=== PATIENT | male | born 1940 | race Caucasian/White ===

== ENCOUNTER 2018-03-26 23:26 | Inpatient (IN) | payer OTHER ==
[2018-03-27] MEDS ORDERED: ONDANSETRON 4 MG/2 ML VIAL ONE ×2 (00:03→10:27)
[2018-03-27] MEDS ORDERED: FENTANYL CITR 100 MCG/2 ML ONE ×2 (00:03→09:31)
[2018-03-27 00:46] LABS: ALT/SGPT 24 U/L (12-78); AST/SGOT 22 U/L (15-37); Alkaline Phosphatase 105 U/L (45-117); Amylase Level 54 U/L (25-115); BUN Blood Urea Nitrogen 15 mg/dL (7-18); Bicarbonate 32 mmol/L (21-32); Bilirubin Direct 0.1 mg/dL (0-0.2); Bilirubin Total 0.6 mg/dL (0.2-1.0); Glucose Level 104 mg/dL (74-106); Lipase 132 U/L (73-393); Potassium 3.4 mmol/L (3.5-5.1); Protein, Total 7.7 g/dL (6.4-8.2); Sodium Level 137 mmol/L (136-145)
[2018-03-27 01:07] LABS: Absolute Monocytes 0.6 K/uL (0.1-1.3); Absolute Neutrophil 5.5 K/uL (1.8-8.0); Eosinophils % 7.3 % (0-4.4); Hematocrit 42.9 % (39.6-49.0); MCH 28.9 pg (27.0-35.0); MCV 86.6 fL (80-100); MPV 9.9 fL (7.6-11.3); Monocytes % 7.6 % (3.3-12.3); RBC Red Blood Cell Count 4.95 M/uL (4.33-5.43)
[2018-03-27 01:52] LABS: Urine Bacteria <20 /HPF (NONE SEEN); Urine Culture Reflex Order NOT NEEDED; Urine RBC <5 /HPF (NONE SEEN)
[2018-03-27 01:53] LABS: Urine Blood NEGATIVE (NEG); Urine Glucose NEGATIVE (NEG); Urine Protein NEGATIVE (NEG); Urine pH 7.5 (5.0-7.0)
[2018-03-27] MEDS ORDERED: KETOROLAC 30 MG/ML INJ ONE (02:34)
[2018-03-27] MEDS ORDERED: POTASSIUM 25 MEQ EFFERV TAB ONE (02:34)
--- NOTE | 2018-03-27 05:00 | ER ---
Nurse's Notes [facility] Name: Sin Aguilera Age: 77 yrs Sex: Male : 1940 Arrival Date: 03/26/2018 Time: 23:26 Bed 20 Private MD: Teddy Bone B Diagnosis: Right incarcerated inguinal hernia. ;Small bowel obstruction Presentation: 03/26 23:30 Presenting complaint: EMS states: Patient has right groin pain that started today. ao Patient toke Tramadol 100 Mg and put a bag of ice and got no relieve of his pain. Patient had hydrocele surgery in his right testicle back in January 2018. Patient describes pain similar with the only difference that this time is in the groin area. Transition of care: patient was not received from another setting of care. Onset of symptoms was March 26, 2018 at 20:00. Risk Assessment: Do you want to hurt yourself or someone else? Patient reports no desire to harm self or others. Initial Sepsis Screen: Does the patient meet any 2 criteria? No. Patient's initial sepsis screen is negative. Does the patient have a suspected source of infection? No. Patient's initial sepsis screen is negative. Care prior to arrival: None. 23:30 Method Of Arrival: EMS: [facility] ao 23:30 Acuity: ANGIE 3 ao Historical: - Allergies: 23:41 Codeine; ao - Home Meds: 03/27 00:12 lisinopril 40 mg Oral tab 1 tab BID [Active]; tamsulosin 0.4 mg oral cp24 1 cap twice a ao day [Active]; metoprolol tartrate 25 mg Oral tab 1 tab once daily [Active]; Exforge 5-160 mg oral tab 1 tab twice a day [Active]; levothyroxine 25 mcg tab 1 tab twice a day [Active]; Myrbetriq 25 mg oral Tb24 1 tab once daily [Active]; cefadroxil 500 mg oral cap 1 cap once daily [Active]; tramadol 50 mg Oral tab 1 tab PRN 8 hr for Pain [Active]; aspirin 81 mg Oral chew 1 tab once daily [Active]; pravastatin 80 mg oral tab 1 tab once daily [Active]; Nexium 40 mg Oral cpDR 1 cap once daily [Active]; nitroglycerin 0.4 mg SL subl 1 tab every 5 minutes for Angina [Active]; celecoxib 200 mg Oral cap 1 cap 2 times per day [Active]; - PMHx: 03/26 23:41 Hyperlipidemia; Hypertension; Hypothyroidism; CHF; prostate enlarge; ao - PSHx: 23:41 stents; Kidney remove; ao - Immunization history:: Adult Immunizations up to date. - Social history:: Smoking status: Patient uses tobacco products, denies chronic smoking, but will smoke occasionally, Patient uses alcohol, but reports only rare drinking. Patient/guardian denies using street drugs, IV drugs. - Ebola Screening: : Patient negative for fever greater than or equal to 101.5 degrees Fahrenheit, and additional compatible Ebola Virus Disease symptoms Patient negative for fever greater than or equal to 101.5 degrees Fahrenheit, and additional compatible Ebola Virus Disease symptoms Patient denies exposure to infectious person Patient denies travel to an Ebola-affected area in the 21 days before illness onset. Screenin:37 Abuse screen: Denies threats or abuse. Nutritional screening: No deficits noted. jd3 Tuberculosis screening: No symptoms or risk factors identified. Fall Risk Ambulatory Aid- None/Bed Rest/Nurse Assist (0 pts). Gait- Weak (10 pts.). Mental Status- Oriented to own ability (0 pts). Total Davey Fall Scale indicates No Risk (0-24 pts). Assessment: 23:32 General: Appears uncomfortable, Behavior is cooperative. Pain: Complains of pain in jd3 groin Pain currently is 7 out of 10 on a pain scale. Quality of pain is described as pressure, sharp, tender, Pain began suddenly, Is intermittent. Neuro: Level of Consciousness is awake, alert, obeys commands, Oriented to person, place, time, situation. Cardiovascular: Heart tones S1 S2 present Capillary refill < 3 seconds Patient's skin is warm and dry. Respiratory: Airway is patent Respiratory effort is even, unlabored, Respiratory pattern is regular, symmetrical, Breath sounds are clear bilaterally. GI: Abdomen is round Bowel sounds present X 4 quads. Abd is soft and non tender X 4 quads. : Reports pain in right grown Denies burning with urination, inability to void, urinary frequency. EENT: No signs and/or symptoms were reported regarding the EENT system. Derm: Skin is intact, Skin is dry, Skin is normal, Skin temperature is warm. Musculoskeletal: Circulation, motion, and sensation intact. Range of motion: intact in all extremities. 03/27 00:43 Reassessment: Patient appears in no apparent distress at this time. Patient and/or jd3 family updated on plan of care and expected duration. Pain level reassessed. Patient is alert, oriented x 3, equal unlabored respirations, skin warm/dry/pink. waiting for ultrasound. 03:10 Reassessment: Patient appears in no apparent distress at this time. Patient and/or ao family updated on plan of care and expected duration. Pain level reassessed. Patient is alert, oriented x 3, equal unlabored respirations, skin warm/dry/pink. Received patient from MILLIE Taveras who left home. Patient was at CT. Last set of VS stable. Patient had minimum changes in conditions since he was triage. 04:46 Reassessment: Patient appears in no apparent distress at this time. Patient and/or ao family updated on plan of care and expected duration. Pain level reassessed. 05:58 Reassessment: Patient is alert, oriented x 3, equal unlabored respirations, skin bb warm/dry/pink. IV site intact, report called to Jenna Silver RN. Vital Signs: 03/26 23:34 BP 175 / 86; Pulse 86; Resp 20; Temp 97.5(O); Pulse Ox 94% on R/A; Weight 95.71 kg (R); ao Height 5 ft. 11 in. (180.34 cm); Pain 02/14; 03/27 00:42 BP 134 / 58; Pulse 62; Resp 18 S; Pulse Ox 97% on R/A; jd3 01:15 BP 147 / 78; Pulse 57; Resp 19; Pulse Ox 90% on R/A; jd3 01:30 Pulse Ox 98% on 2 lpm NC; jd3 02:13 BP 169 / 74; Pulse 60; Resp 19 S; Pulse Ox 98% on 2 lpm NC; jd3 03:10 BP 139 / 64; Pulse 61; Resp 16; Pulse Ox 97% on NC; ao 04:46 BP 144 / 66; Pulse 72; Resp 16; Pulse Ox 97% ; ao 05:40 BP 136 / 64; Pulse 63; Resp 18; Pulse Ox 97% on R/A; bb 03/26 23:34 Body Mass Index 29.43 (95.71 kg, 180.34 cm) ao 01:15 pt placed on nasal canula jd3 ED Course: 03/26 23:26 Patient arrived in ED. ds1 23:27 Teddy Bone MD is Private Physician. ds1 23:27 Dk Guillen PA is PHCP. cp 23:27 Ricardo Zuniga MD is Attending Physician. cp 23:27 Rene Adams, MILLIE is Primary Nurse. jd3 23:34 Triage completed. ao 23:35 Arm band placed on right wrist. Patient placed in an exam room, in a wheelchair, on ao pulse oximetry. 23:41 Patient has correct armband on for positive identification. Pulse ox on. NIBP on. ao 03/27 00:10 Initial lab(s) drawn, by me, sent to lab. Urine collected: clean catch specimen, clear. bb Inserted saline lock: 20 gauge in right forearm, using aseptic technique. Blood collected. 00:54 Lights dimmed. Warm blanket given. wet bedding changed. jd3 01:19 Patient taken to ultrasound. bertin 02:04 US Scrotum Testicles In Process Unspecified. EDMS 03:11 CT Abd/Pelvis - W/Contrast: no oral contrast In Process Unspecified. EDMS 03:45 called and left message for Dr. Presley to please call Dr Clark for patient eb consulation. 04:44 repeat call and left message made to Dr. Presley for for patient consultation.eb 04:[address] Presley with Dr. Zuniga. eb 04:51 X-ray completed. Portable x-ray completed in exam room. Patient tolerated procedure kw well. 04:52 Chest Single View XRAY In Process Unspecified. EDMS 04:59 Denilson Presley MD is Hospitalizing Provider. ps1 05:59 No provider procedures requiring assistance completed. Patient admitted, IV remains in bb place. Administered Medications: 00:15 Drug: Zofran 4 mg Route: IVP; Site: right forearm; bb 02:41 Follow up: Response: No adverse reaction jd3 00:15 Drug: fentaNYL (PF) 25 mcg Route: IVP; Site: right forearm; bb 02:42 Follow up: Response: No adverse reaction jd3 02:38 Drug: Potassium Effervescent Tablet 25 mEq Route: PO; jd3 02:39 Drug: TORadol 30 mg Route: IVP; Site: right antecubital; jd3 Outcome: 04:59 Decision to Hospitalize by Provider. ps1 05:00 Instructed on the need for admit. bb 05:59 Admitted to Tele accompanied by tech, family with patient, via stretcher, room 417, bb with chart, Report called to Jenna Silver RN 05:59 Condition: stable 06:00 Patient left the ED. bb Signatures: Dispatcher [employer] EDIN Analy aBsilio ds1 Ese Reveles, RN RN bb Fela Brothers Corey, PA PA cp Ortiz, Alex, RN RN Moris Mckeon jd, Jonathon, RN RN jRicardo Mills MD MD ps1 Aby Galo Corrections: (The following items were deleted from the chart) 04:46 03:45 called and left message for Dr. Yates to please call Dr Clark for patient eb consulation. eb 04:47 04:44 repeat call made to Dr. Presley for for patient consulation. eb eb
--- NOTE | 2018-03-27 05:00 | EDPHYS ---
Physician Documentation [facility] Name: Sin Aguilera Age: 77 yrs Sex: Male : 1940 Arrival Date: 03/26/2018 Time: 23:26 Bed 20 Private MD: Teddy Bone B ED Physician Ricardo Zuniga HPI: 03/26 23:56 This 77 yrs old Male presents to ER via EMS with complaints of Groin Pain. cp Historical: - Allergies: 23:41 Codeine; ao - Home Meds: 03/27 00:12 lisinopril 40 mg Oral tab 1 tab BID [Active]; tamsulosin 0.4 mg oral cp24 1 cap twice a ao day [Active]; metoprolol tartrate 25 mg Oral tab 1 tab once daily [Active]; Exforge 5-160 mg oral tab 1 tab twice a day [Active]; levothyroxine 25 mcg tab 1 tab twice a day [Active]; Myrbetriq 25 mg oral Tb24 1 tab once daily [Active]; cefadroxil 500 mg oral cap 1 cap once daily [Active]; tramadol 50 mg Oral tab 1 tab PRN 8 hr for Pain [Active]; aspirin 81 mg Oral chew 1 tab once daily [Active]; pravastatin 80 mg oral tab 1 tab once daily [Active]; Nexium 40 mg Oral cpDR 1 cap once daily [Active]; nitroglycerin 0.4 mg SL subl 1 tab every 5 minutes for Angina [Active]; celecoxib 200 mg Oral cap 1 cap 2 times per day [Active]; - PMHx: 03/26 23:41 Hyperlipidemia; Hypertension; Hypothyroidism; CHF; prostate enlarge; ao - PSHx: 23:41 stents; Kidney remove; ao - Immunization history:: Adult Immunizations up to date. - Social history:: Smoking status: Patient uses tobacco products, denies chronic smoking, but will smoke occasionally, Patient uses alcohol, but reports only rare drinking. Patient/guardian denies using street drugs, IV drugs. - Ebola Screening: : Patient negative for fever greater than or equal to 101.5 degrees Fahrenheit, and additional compatible Ebola Virus Disease symptoms Patient negative for fever greater than or equal to 101.5 degrees Fahrenheit, and additional compatible Ebola Virus Disease symptoms Patient denies exposure to infectious person Patient denies travel to an Ebola-affected area in the 21 days before illness onset. ROS: 03/27 00:00 Constitutional: Negative for body aches, chills, fever, poor PO intake. cp 00:00 Eyes: Negative for injury, pain, redness, and discharge. cp 00:00 ENT: Negative for drainage from ear(s), ear pain, sore throat, difficulty swallowing, difficulty handling secretions. 00:00 Cardiovascular: Negative for chest pain, edema, palpitations. 00:00 Respiratory: Negative for cough, shortness of breath, wheezing. 00:00 Abdomen/GI: Positive for abdominal pain, nausea, vomiting, of the right groin, Negative for diarrhea, constipation, black/tarry stool, rectal bleeding. 00:00 Back: Negative for pain at rest, pain with movement, radiated pain. 00:00 : Positive for testicular pain of the right, Negative for urinary symptoms. 00:00 Skin: Negative for cellulitis, rash. 00:00 Neuro: Negative for altered mental status, dizziness, headache, weakness. 00:00 All other systems are negative. Exam: 00:08 Constitutional: The patient appears in no acute distress, alert, awake, cp non-diaphoretic, non-toxic, well developed, well nourished, uncomfortable. 00:08 Head/Face: Normocephalic, atraumatic. cp 00:08 Eyes: Periorbital structures: appear normal, Conjunctiva: normal, no exudate, no injection, Lids and lashes: appear normal, bilaterally. 00:08 ENT: External ear(s): are unremarkable, Nose: is normal, Mouth: Lips: moist, Oral mucosa: pink and intact, moist, Posterior pharynx: is normal, airway is patent, no erythema, no exudate. 00:08 Neck: ROM/movement: is normal, is supple, without pain, no range of motions limitations, no nuchal rigidity. 00:08 Chest/axilla: Inspection: normal, Palpation: is normal, no crepitus, no tenderness. 00:08 Cardiovascular: Rate: normal, Rhythm: regular. 00:08 Respiratory: the patient does not display signs of respiratory distress, Respirations: normal, no use of accessory muscles, no retractions, no splinting, no tachypnea, labored breathing, is not present, Breath sounds: are clear throughout, no decreased breath sounds, no stridor, no wheezing. 00:08 Abdomen/GI: Inspection: abdomen appears normal, Bowel sounds: active, all quadrants, Palpation: soft, in all quadrants, rebound tenderness, is not appreciated, marked swelling and tenderness right inguinal area. 00:08 Back: pain, is absent, ROM is normal. 00:08 : Male external genitalia: erythema, is absent, swelling, of the left testicle is noted, tenderness, of the right testicle is noted. 00:08 Skin: cellulitis, is not appreciated, no rash present. Vital Signs: 03/26 23:34 BP 175 / 86; Pulse 86; Resp 20; Temp 97.5(O); Pulse Ox 94% on R/A; Weight 95.71 kg (R); ao Height 5 ft. 11 in. (180.34 cm); Pain 5/10; 03/27 00:42 BP 134 / 58; Pulse 62; Resp 18 S; Pulse Ox 97% on R/A; jd3 01:15 BP 147 / 78; Pulse 57; Resp 19; Pulse Ox 90% on R/A; jd3 01:30 Pulse Ox 98% on 2 lpm NC; jd3 02:13 BP 169 / 74; Pulse 60; Resp 19 S; Pulse Ox 98% on 2 lpm NC; jd3 03:10 BP 139 / 64; Pulse 61; Resp 16; Pulse Ox 97% on NC; ao 04:46 BP 144 / 66; Pulse 72; Resp 16; Pulse Ox 97% ; ao 05:40 BP 136 / 64; Pulse 63; Resp 18; Pulse Ox 97% on R/A; bb 03/26 23:34 Body Mass Index 29.43 (95.71 kg, 180.34 cm) ao 01:15 pt placed on nasal canula jd3 MDM: 03/26 23:28 Patient medically screened. cp 03/27 01:00 Differential diagnosis: UTI, kidney stone, incarcerated hernia, testicular torsion. 03/26 23:57 Order name: Amylase, Serum; Complete Time: 01:44 cp 03/26 23:57 Order name: Basic Metabolic Panel; Complete Time: 01:44 cp 03/27 02:08 Interpretation: Normal except: K 3.4; CA 8.4. 03/26 23:57 Order name: CBC with Diff; Complete Time: 01:44 cp 03/27 02:28 Interpretation: Normal except: LYM% 13.0; EOSINOPHIL % 7.3; EOSA 0.6. cp 03/26 23:57 Order name: Creatinine for Radiology; Complete Time: 01:44 cp 03/26 23:57 Order name: Hepatic Function; Complete Time: 01:44 cp 03/27 01:44 Interpretation: Normal except: GLOB 3.7. cp 03/26 23:57 Order name: Lipase; Complete Time: 01:44 cp 03/26 23:57 Order name: Urine Microscopic Only; Complete Time: 02:08 cp 03/26 23:57 Order name: US Scrotum Testicles 03/27 00:15 Order name: Urine Dipstick--Ancillary (enter results); Complete Time: 02:08 eb 03/27 02:08 Interpretation: Normal except: UPH 7.5. 03/27 02:28 Order name: CT Abd/Pelvis - W/Contrast: no oral contrast 03/27 04:35 Order name: Chest Single View XRAY 03/27 04:35 Order name: Type And Screen 03/27 05:35 Order name: ABO/RH no charge EDME 03/26 23:57 Order name: IV Saline Lock; Complete Time: 00:19 03/26 23:57 Order name: Labs collected and sent; Complete Time: 00:19 03/26 23:57 Order name: Urine Dipstick-Ancillary (obtain specimen); Complete Time: 00:19 03/27 04:35 Order name: EKG; Complete Time: 04:36 03/27 04:35 Order name: EKG - Nurse/Tech; Complete Time: 04:57 03/27 05:06 Order name: CONS Pharmacy Consult EDME 03/27 05:06 Order name: NPO EDMS Administered Medications: 00:15 Drug: Zofran 4 mg Route: IVP; Site: right forearm; bb 02:41 Follow up: Response: No adverse reaction jd3 00:15 Drug: fentaNYL (PF) 25 mcg Route: IVP; Site: right forearm; bb 02:42 Follow up: Response: No adverse reaction jd3 02:38 Drug: Potassium Effervescent Tablet 25 mEq Route: PO; jd3 02:39 Drug: TORadol 30 mg Route: IVP; Site: right antecubital; jd3 Disposition: 05:00 CT demonstrated right incarcerated inguinal hernia. Attempted unsuccessfully to reduce ps1 in the emergency department. Called General surgery for admission. Accepted by Fernandez. Disposition: 03/27/18 04:59 Hospitalization ordered by Denilson Presley for Inpatient Admission. Preliminary diagnosis are Right incarcerated inguinal hernia. , Small bowel obstruction. - Bed requested for Telemetry/MedSurg (Inpatient). - Status is Inpatient Admission. bb - Condition is Stable. - Problem is new. - Symptoms are unchanged. UTI on Admission? No Signatures: Dispatcher [employer] EDMS Ese Reveles RN RN bb Dk Guillen PA PA cp Ortiz, Alex RN Rene De La Rosa RN RN jRicardo Mills MD MD ps1 Botello, Elizabeth eb Corrections: (The following items were deleted from the chart) 02:08 01:44 Normal except: K 3.4. cp cp 02:28 01:44 Normal except: LYM% 13.0; EOSINOPHIL % 7.3. cp cp 05:04 04:59 Hospitalization Ordered by Denilson Presley MD for Inpatient Admission. Preliminary eb diagnosis is Right incarcerated inguinal hernia. ; Small bowel obstruction. Bed requested for Telemetry/MedSurg (Inpatient). Status is Inpatient Admission. Condition is Stable. Problem is new. Symptoms are unchanged. UTI on Admission? No. ps1 05:04 05:04 03/27/2018 04:59 Hospitalization Ordered by Denilson Presley MD for Inpatient eb Admission. Preliminary diagnosis is Right incarcerated inguinal hernia. ; Small bowel obstruction. Bed requested for Telemetry/MedSurg (Inpatient). Status is Inpatient Admission. Condition is Stable. Problem is new. Symptoms are unchanged. UTI on Admission? No. eb 05:13 05:04 03/27/2018 04:59 Hospitalization Ordered by Denilson Presley MD for Inpatient eb Admission. Preliminary diagnosis is Right incarcerated inguinal hernia. ; Small bowel obstruction. Bed requested for Telemetry/MedSurg (Inpatient). Status is Inpatient Admission. Condition is Stable. Problem is new. Symptoms are unchanged. UTI on Admission? No. eb 06:00 05:13 03/27/2018 04:59 Hospitalization Ordered by Denilson Presley MD for Inpatient bb Admission. Preliminary diagnosis is Right incarcerated inguinal hernia. ; Small bowel obstruction. Bed requested for Telemetry/MedSurg (Inpatient). Status is Inpatient Admission. Condition is Stable. Problem is new. Symptoms are unchanged. UTI on Admission? No. eb
[2018-03-27] MEDS ORDERED: ONDANSETRON 4 MG/2 ML VIAL IV PRN (05:04)
[2018-03-27] MEDS ORDERED: MORPHINE 4 MG/ML SYR IV PRN ×2 (05:04→11:51)
[2018-03-27] MEDS: NA CHLORIDE 0.9% 1,000 ML IV SCH ×4 (06:00→21:31)
--- NOTE | 2018-03-27 08:31 | RAD REPORT ---
EXAM DESCRIPTION: CT - Abdomen Pelvis W Contrast - 03/27/2018 5:36 am CLINICAL HISTORY: Abdominal pain/right lower quadrant pain. COMPARISON: none. TECHNIQUE: Computed axial tomography of the abdomen pelvis was obtained. Seventy-five cc Isovue-300 was administered intravenously. Oral contrast was not requested which limits evaluation of bowel.A pr eliminary report was generated by S B E and reviewed prior to this dictation All CT scans are performed using dose optimization technique as appropriate and may include automated exposure control or mA/KV adjustment according to patient size. FINDINGS: Gallstones are present without gallbladder wall thickening. The liver, pancreas and adrenals appear unremarkable. Two splenic lesions with peripheral enhancement measure about 2 centimeters. The right kidney is congenitally absent. A small left renal cyst is seen. Scoliosis involves the spine The prostate gland is moderately to markedly enlarged. A right inguinal hernia contains ileum. The more proximal bowel is dilated. A left inguinal hernia contains fat. A tiny umbilical hernia is present A 5.3 centimeter complex left hydrocele is seen. There is no evidence of diverticulitis. IMPRESSION: Right inguinal hernia containing ileum resulting in an obstruction. 5.3 centimeter complex left hydrocele
--- NOTE | 2018-03-27 08:49 | RAD REPORT ---
EXAM DESCRIPTION: Edwin Single View03/27/2018 4:51 am CLINICAL HISTORY: Abdominal pain COMPARISON: 2012 FINDINGS: Mild pulmonary opacities probably are chronic. The lungs appear clear of acute infiltrate. The heart is mildly enlarged IMPRESSION: No acute abnormalities displayed
[2018-03-27] MEDS ORDERED: LIDOCAINE 1% MPF 5 ML VIAL ONE (09:31)
[2018-03-27] MEDS ORDERED: PROPOFOL 200 MG/20 ML VIAL IV ONE (09:31)
[2018-03-27] MEDS ORDERED: ROCURONIUM 50 MG/5 ML VIAL IV ONE (09:31)
--- NOTE | 2018-03-27 09:34 | RAD REPORT ---
EXAM DESCRIPTION: US - Scrotum Testicles - 03/27/2018 2:04 am CLINICAL HISTORY: Left scrotal pain. Surgery date 1-6 months hydrocele surgery. COMPARISON: None. FINDINGS: The right testicle measures 4 x 1.8 x 3.2 cm. The left testicle measures 4.6 x 1.8 x 3 cm. The echotexture of each testicle is relatively homogeneous. There is normal appearing intratesticular blood flow. The epididymides demonstrate normal blood flow Within the left scrotum is a complex fluid collection measuring 5.4 x 3.2 cm. IMPRESSION: A 5.4 cm complex left hydrocele.
[2018-03-27] MEDS ORDERED: CEFAZOLIN/SWI 1gm 1 GM/10 ML SYR ONE (09:53)
[2018-03-27] MEDS ORDERED: NS 0.9% VIAL 10 ML ONE ×2 (10:28→10:46)
[2018-03-27] MEDS ORDERED: EPHEDRINE SULF 50 MG/5 ML SYR ONE (10:28)
--- NOTE | 2018-03-27 10:41 | EKG ---
Test Date: 2018-03-27 Test Time: 04:43:04 Table Tender: DANIELA MEASUREMENT RESULTS: Intervals: Rate: 55 LA: 208 QRSD: 116 QT: 482 QTc: 461 [place]: P: 59 LA: 208 QRS: 48 T: 39 INTERPRETIVE STATEMENTS: Sinus bradycardia with premature atrial complexes Incomplete right bundle branch block Borderline ECG Compared to ECG 04/21/2013 17:21:39 Incomplete right bundle-branch block now present Sinus tachycardia no longer present Electronically Signed On 03-27-18 10:41:00 CDT by Edd Camara
[2018-03-27] MEDS ORDERED: MORPHINE 10 MG/ML VIAL ONE (10:45)
[2018-03-27] MEDS ORDERED: GLYCOPYRROLATE 0.2 MG/ML SYR ONE (11:16)
[2018-03-27] MEDS ORDERED: NEOSTIGMINE 1 MG/ML -5 ML SYRINGE ONE (11:18)
[2018-03-27] MEDS ORDERED: NA CHLORIDE 0.9% 1,000 ML ONE (11:19)
--- NOTE | 2018-03-27 11:33 | P.HP ---
Date of Service: 03/27/18 PC: This 77-year-old male presented to the emergency room with swelling and severe pain in his right groin area for diagnosis and treatment. HPC: Patient has noticed a bulge in his right groin that began yesterday evening. Has increased as far as pain goes. Now he can push it back and is miserable. PMH: Hyperlipidemia, hypertension, coronary artery disease PSHx: Previous coronary stent placed, kidney remove. Has recently had a right hydrocele operated on. Apparently had accumulation had a re-exploration. SOC: Allergic to codeine, but has taken hydrocodone SYS REVIEW: States he is otherwise in good health O/E awake alert comfortable at the nc HEENT: Within normal limits Chest: Clear ABD: Soft nontender, hernia is reduced at the moment LOCO: Intact DATA: Within normal limit IMPRESSION: Earlier had at a incarcerated inguinal hernia. Has reduced overnight. PLAN: I will take to the operating room for a laparoscopic repair of this right inguinal hernia. We will also look to the left side of GB placed a piece of mesh there. The risks of this procedure have been discussed. The possibility of bleeding, infection, need to remove the mesh should become infected were explained. Recurrence and need for further surgeries were outlined. He understands and wants us to proceed.
[2018-03-27] MEDS: MEPERIDINE HCL 25 MG/0.5 ML ONE ×2 (11:37→12:00)
--- NOTE | 2018-03-27 11:38 | P.OP ---
Preoperative diagnosis: Right inguinal hernia Postoperative diagnosis: The same (direct and indirect) Primary procedure: Laparoscopic repair of right inguinal hernia with mesh Anesthesia: General Estimated blood loss: Less than 20 cc Specimen: No specimen sent Operative Technique: The patient brought the operating room and placed supine on the table of adequate general endotracheal anesthesia, the area of the abdomen was prepped with a DuraPrep solution, all Harrison catheter was inserted, and he was draped in usual aseptic manner. A subumbilical incision was made. This brought down through the skin and subcutaneous tissue. The fascia with the rectus was identified. An opening was made into this with 11 blade. The balloon dissected was now passed down towards the pubic symphysis and inflated. The working balloon was left in place in the preperitoneal space was inflated to a pressure approximately 12 mm of mercury. With the patient placed in Trendelenburg we were able to place 2 5 mm trocars in the suprapubic area and 1 just above this. Inspection of the rights anterior abdominal wall showed its the patient have with appear to be any indirect hernia. This was dissected off the spermatic cord. There was nothing inside the sac as we dissected it out. However we did convert to a the mona procedure just to visualize the intestine in that area. There was no evidence of any compromise to the bowel. We could see this the sac was fully reduced back into the peritoneal cavity. Once again we flipped back to the preperitoneal area. The piece of left medium mesh was now introduced into the preperitoneal space. It was fixed a Walter's ligament and out laterally. Good coverage were hernial orifices having been achieved, the preperitoneal space was now collapsed. (It was interesting to note the patient also has a right indirect inguinal hernia. The left side appeared to be grossly intact.) we recreated the pneumoperitoneum. We were able to visualize the anterior abdominal wall on the right lower quadrant ensured that the hernia had been completely reduced, that the mesh was adequately covering the potential orifice sees, and then it was laying flat. At this point the pneumoperitoneum was collapsed, the fascia approximated with and absorbable suture, and roselyn applied to the skin At the end of the procedure he was in a stable condition when sent to the recovery room. Needle sponge instrument count were correct. No drains were placed. Complications: None Transferred to: Recovery Room Condition: Good
[2018-03-27] MEDS ORDERED: HYDROCODONE/APAP 7.5/325 MG TAB PO PRN (11:51)
[2018-03-27] MEDS ORDERED: PROMETHAZINE 25 MG/ML VIAL ONE (12:07)
--- NOTE | 2018-03-27 13:01 | P.CNS ---
Date of Consult: 03/27/18 PC: This 77-year-old female presented to the emergency room with severe abdominal pain for diagnosis and treatment. HPC: This patient, with a long history of Crohn's disease, presented with abdominal pain. She has had previous surgeries involving small bowel resections , and has been treated before with nasogastric tube in IV fluids for suspected adhesions. 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 She started experiencing pain and thought to be developing a bowel obstruction so came to the emergency room to head off any need for surgical intervention. PMH: Crohn's disease PSHx: Axilla tore laparotomy, exploration for fistulas, a fistulotomy is. SOC: Surgeon cavity SYS REVIEW: States he has otherwise been relatively healthy her weight has been steady and she is able to maintain O/E awake alert stable HEENT: Within normal limits Chest: Chest movement equal bilaterally ABD: Soft nontender no masses are palpable LOCO: Intact DATA: Within normal limit, CT scan was suspicious of possible early bowel obstruction IMPRESSION: No clinical evidence of bowel obstruction, patient much improved at the current time PLAN: Patient is not require surgery. She may be discharged when she is tolerating a regular diet. She has her on GI doctors and regular surgeon hand I recommended she check in with them should she have any ongoing problems.
[2018-03-27 13:09] VITALS: BMI 28.4
--- NOTE | 2018-03-27 13:49 | P.OP ---
Primary procedure: Laparoscopic repair of right inguinal hernia with mesh Operative Technique: The patient brought the operating room and placed supine on the table of adequate general endotracheal anesthesia, the area of the abdomen was prepped with a DuraPrep solution, all Harrison catheter was inserted, and he was draped in usual aseptic manner. A subumbilical incision was made. This brought down through the skin and subcutaneous tissue. The fascia with the rectus was identified. An opening was made into this with 11 blade. The balloon dissected was now passed down towards the pubic symphysis and inflated. The working balloon was left in place in the preperitoneal space was inflated to a pressure approximately 12 mm of mercury. With the patient placed in Trendelenburg we were able to place 2 5 mm trocars in the suprapubic area and 1 just above this. Inspection of the rights anterior abdominal wall showed its the patient have with appear to be any indirect hernia. This was dissected off the spermatic cord. There was nothing inside the sac as we dissected it out. However we did convert to a the mona procedure just to visualize the intestine in that area. There was no evidence of any compromise to the bowel. We could see this the sac was fully reduced back into the peritoneal cavity. Once again we flipped back to the preperitoneal area. The piece of left medium mesh was now introduced into the preperitoneal space. It was fixed a Walter's ligament and out laterally. Good coverage were hernial orifices having been achieved, the preperitoneal space was now collapsed. (It was interesting to note the patient also has a right indirect inguinal hernia. The left side appeared to be grossly intact.) we recreated the pneumoperitoneum. We were able to visualize the anterior abdominal wall on the right lower quadrant ensured that the hernia had been completely reduced, that the mesh was adequately covering the potential orifice sees, and then it was laying flat. At this point the pneumoperitoneum was collapsed, the fascia approximated with and absorbable suture, and roselyn applied to the skin At the end of the procedure he was in a stable condition when sent to the recovery room. Needle sponge instrument count were correct. No drains were placed. Complications: None
[2018-03-28 02:45] VITALS: O2SAT 100
[2018-03-28] MEDS ORDERED: NA CHLORIDE 0.9% 250 ML IV ONE (07:10)
[2018-03-28] MEDS: NA CHLORIDE 0.9% 1,000 ML IV SCH (07:40)
[2018-03-28] MEDS ORDERED: TRAMADOL HCL 50 MG TAB PO PRN (10:58)
--- NOTE | 2018-03-28 11:07 | P.CNS ---
Date of Consult: 03/28/18 Reason for Consult: Medical management/Hematuria Requesting Physician: Denilson Presley Primary Care Provider: Dr. Bone; Dr. Daniel([facility]); Urology-Dr. Mascorro Chief Complaint: Hematuria, urinary retention History of Present Illness: 77-year-old male presented to the emergency room with abdominal pain. Patient found to have a right inguinal hernia. Patient had surgery last night by surgery. Right hernia repair was done. Mesh was placed. Patient had Harrison catheter placed prior to surgery. This was removed after surgery. Overnight the patient had difficulty voiding. This morning he had more difficulty voiding. He also reported some mild hematuria. I was consulted to further evaluate and to address his multiple medical conditions. Patient has history of hypertension, CAD, solitary left kidney, BPH, urinary incontinence, hypothyroidism and GERD. Patient reports that he has had problems with urinary retention with a previous procedure done last year for hydrocele repair. Patient is followed by urology in [place]. This morning the patient reports some pelvic pressure. Difficulty voiding noted. Allergies codeine Allergy (Unknown, Verified 04/02/17 11:49) Nausea/Vomiting Home medications list reviewed: Yes Home Medications: Amlodipine/Valsartan [Exforge 5-160 mg Tablet] 1 each PO DAILY 04/21/13 Aspirin [Aspirin EC 81 MG] 81 mg PO DAILY 04/21/13 Esomeprazole Mag Trihydrate [Nexium] 40 mg PO DAILY 04/21/13 Lisinopril [Prinivil*] 40 mg PO BID 04/21/13 Metoprolol Succinate [Toprol Xl*] 25 mg PO BEDTIME 04/21/13 Nitroglycerin [Nitrostat*] 0.4 mg SL PRN PRN 04/21/13 Levothyroxine [Synthroid*] 25 mcg PO ACB 03/29/17 Pravastatin Sodium 80 mg PO DAILY 03/29/17 Tamsulosin [Flomax*] 0.4 mg PO DAILY 03/29/17 Cefadroxil Hydrate [Duricef] 500 mg PO BID 03/27/18 Celecoxib [Celebrex] 200 mg PO BID 03/27/18 Mirabegron [Myrbetriq] 25 mg PO BEDTIME 03/27/18 Tramadol HCl [Ultram] 50 mg PO Q6H 03/27/18 - Past Medical/Surgical History Diabetic: No -: HTN -: GERD -: Hyperlipidemia -: CHF -: BPH -: CAD with previous stent -: Solitary left kidney -: Hydrocele -: Hypothyroidism -: Urinary incontinence -: Cardiac stent placed in 2010 -: Bilateral hydrocele repair (February 2018) Psychosocial/ Personal History: The patient is - Family History Mother Medical History: Heart disease Father Medical History: Lung disease - Social History Smoking Status: Current some day smoker Alcohol use: Yes CD- Drugs: No Caffeine use: Yes Place of Residence: Home Review of Systems General: As per HPI Eyes: Unremarkable ENT: Unremarkable Respiratory: Unremarkable Cardiovascular: Unremarkable Gastrointestinal: Abdominal Pain, As per HPI Genitourinary: Hematuria, Retention, As per HPI Musculoskeletal: Unremarkable Integumentary: Unremarkable Neurological: Unremarkable Lymphatics: Unremarkable Physical Examination Temp Pulse Resp BP Pulse Ox 97.3 F 81 15 161/84 H 91 03/28/18 08:00 03/28/18 08:00 03/28/18 08:00 03/28/18 08:00 03/28/18 08:00 General: Alert, In no apparent distress, Oriented x3, Cooperative HEENT: Atraumatic, Normocephalic, PERRLA, Mucous membr. moist/pink Neck: Supple, No Thyromegaly Respiratory: Clear to auscultation bilaterally, Normal air movement Cardiovascular: Normal pulses, Regular rate/rhythm Gastrointestinal: Normal bowel sounds, Soft and benign, Non-distended, Tenderness (Pain to the lower pelvic region) Musculoskeletal: No erythema, No tenderness, No warmth Integumentary: No tenderness/swelling, No erythema, No warmth, No cyanosis Neurological: Normal speech, Normal strength at 5/5 x4 extr, Normal tone, Normal affect Urinary: Other (Pain to the pelvic region.) External genitalia: No edema, No lesions, No masses - Problems (1) Postoperative urinary retention Current Visit: Yes Status: Acute Plan: Patient has postoperative urinary retention. Case discussed with urology. Harrison catheter will need to be placed. Patient will need Harrison catheter for at least 1 week postoperatively. Will reassess after a catheters placed. Will monitor closely. Harrison catheter can be removed in 1 week by urology or PCP or surgeon. Will continue Flomax. Will start antibiotic. Will check for urine culture. Will discontinue IV fluids (2) BPH (benign prostatic hyperplasia) Current Visit: Yes Status: Acute Plan: Continue with medication. Case discussed with urology. Harrison catheter will be placed. Qualifiers: Lower urinary tract symptom presence: symptoms present Lower urinary tract symptom detail: urinary retention Qualified Code(s): N40.1 - Benign prostatic hyperplasia with lower urinary tract symptoms; R33.8 - Other retention of urine (3) Urinary incontinence Current Visit: Yes Status: Chronic Plan: Continue with medication Qualifiers: Urinary Incontinence type: unspecified incontinence Qualified Code(s): R32 - Unspecified urinary incontinence (4) Hypertension Current Visit: Yes Status: Chronic Plan: Continue with medication Qualifiers: Hypertension type: essential hypertension Qualified Code(s): I10 - Essential (primary) hypertension (5) Hyperlipidemia Current Visit: Yes Status: Chronic Plan: Continue with medication Qualifiers: Hyperlipidemia type: unspecified Qualified Code(s): E78.5 - Hyperlipidemia , unspecified (6) CAD (coronary artery disease) Current Visit: Yes Status: Chronic Plan: Continue with his medication (7) Hypothyroidism Current Visit: Yes Status: Chronic Plan: Continue with medication Qualifiers: Hypothyroidism type: unspecified Qualified Code(s): E03.9 - Hypothyroidism , unspecified (8) GERD (gastroesophageal reflux disease) Current Visit: Yes Status: Chronic Plan: Continue with medication Qualifiers: Esophagitis presence: esophagitis presence not specified Qualified Code(s) : K21.9 - Gastro-esophageal reflux disease without esophagitis (9) Hydrocele Current Visit: Yes Status: Chronic Plan: Patient had bilateral hydrocele repair by urology in the past in [place]. Repeat scrotal ultrasound shows 5.3 cm complex left hydrocele. This will be further addressed as an outpatient. Qualifiers: Hydrocele type: unspecified Qualified Code(s): N43.3 - Hydrocele, unspecified (10) Incarcerated inguinal hernia Onset Date: 03/27/18 Current Visit: Yes Status: Acute Plan: Patient had right inguina hernia repair with mesh by surgery yesterday. Patient doing well. Continue postoperative care. No heavy lifting, pushing or pulling. Will discuss with surgery. (11) Solitary left kidney Current Visit: Yes Status: Chronic Plan: Patient with history of solitary left kidney. Overall stable. Will monitor electrolytes. Continue as above. Time Spent Managing Pts care (In Minutes): 55
--- NOTE | 2018-03-28 11:51 | RAD REPORT ---
EXAM DESCRIPTION: US - Urinary Bladder - 03/28/2018 11:38 am CLINICAL HISTORY: Hematuria/urinary retention FINDINGS: The evaluation of the bladder is limited secondary to overlying bandages. The bladder measures approximately 15 x 10 x 8 centimeter The prostate gland is markedly enlarged. IMPRESSION: Mild bladder distention
[2018-03-28] MEDS: TAMSULOSIN 0.4 MG SR CAP PO SCH (12:16)
[2018-03-28] MEDS: VALSARTAN 160 MG TAB PO SCH (12:16)
[2018-03-28] MEDS: CEFTRIAXONE/SWI 1gm 1 GM/10 ML SYR IV SCH (12:16)
[2018-03-28] MEDS: LISINOPRIL 20 MG TAB PO SCH ×2 (12:16→21:32)
[2018-03-28] MEDS: CELECOXIB 100 MG CAPSULE PO SCH ×2 (12:16→21:32)
[2018-03-28] MEDS: AMLODIPINE 5 MG TAB PO SCH (12:16)
[2018-03-28] MEDS ORDERED: ATORVASTATIN 10 MG TAB PO SCH (21:00)
[2018-03-28] MEDS ORDERED: HOME MED 1 EA UNK PO SCH (21:00)
[2018-03-28] MEDS ORDERED: METOPROLOL XL 25 MG TAB PO SCH (21:00)
[2018-03-28] MEDS: PANTOPRAZOLE 40MG TABLET PO SCH (21:33)
[2018-03-29] MEDS ORDERED: LEVOTHYROXINE SOD 0.025 MG TAB PO SCH (06:00)
[2018-03-29] MEDS: PANTOPRAZOLE 40MG TABLET PO SCH (06:13)
--- NOTE | 2018-03-29 08:24 | P.PN ---
Subjective Date of Service: 03/29/18 Primary Care Provider: Dr. Bone; Dr. Daniel([facility]); Urology-Dr. Mascorro Chief Complaint: Hematuria, urinary retention Subjective: Doing well Physical Examination - Vital Signs Temperature: 97.6 F Blood Pressure: 113/62 Pulse: 65 Respirations: 14 Pulse Ox (%): 94 - Physical Exam General: Alert, In no apparent distress, Oriented x3, Cooperative HEENT: Atraumatic Neck: Supple Respiratory: Clear to auscultation bilaterally, Normal air movement Cardiovascular: Normal pulses, Regular rate/rhythm Gastrointestinal: Normal bowel sounds, Soft and benign, Non-distended, No masses , No rebound, No guarding, Other (post surgical changes) Musculoskeletal: No erythema, No tenderness, No warmth Integumentary: No erythema, No warmth, No cyanosis Neurological: Normal speech, Normal strength at 5/5 x4 extr, Normal tone, Normal affect Urinary: Harrison catheter (place) - Studies Medications List Reviewed: Yes Assessment & Plan - Problems (Diagnosis) (1) Postoperative urinary retention Current Visit: Yes Status: Acute Plan: Patient had postoperative urinary retention. He is doing well. Case discussed with urology yesterday. Harrison catheter will need to be place for one week. It can be removed after that time with PCP/Urology. Will need antibiotic at discharge. Continue Flomax. (2) BPH (benign prostatic hyperplasia) Current Visit: Yes Status: Acute Plan: Continue with medication. Case discussed with urology. Harrison catheter will be placed. Qualifiers: Lower urinary tract symptom presence: symptoms present Lower urinary tract symptom detail: urinary retention Qualified Code(s): N40.1 - Benign prostatic hyperplasia with lower urinary tract symptoms; R33.8 - Other retention of urine (3) Urinary incontinence Current Visit: Yes Status: Chronic Plan: Continue with medication Qualifiers: Urinary Incontinence type: unspecified incontinence Qualified Code(s): R32 - Unspecified urinary incontinence (4) Hypertension Current Visit: Yes Status: Chronic Plan: Continue with medication Qualifiers: Hypertension type: essential hypertension Qualified Code(s): I10 - Essential (primary) hypertension (5) Hyperlipidemia Current Visit: Yes Status: Chronic Plan: Continue with medication Qualifiers: Hyperlipidemia type: unspecified Qualified Code(s): E78.5 - Hyperlipidemia , unspecified (6) CAD (coronary artery disease) Current Visit: Yes Status: Chronic Plan: Continue with his medication (7) Hypothyroidism Current Visit: Yes Status: Chronic Plan: Continue with medication Qualifiers: Hypothyroidism type: unspecified Qualified Code(s): E03.9 - Hypothyroidism , unspecified (8) GERD (gastroesophageal reflux disease) Current Visit: Yes Status: Chronic Plan: Continue with medication Qualifiers: Esophagitis presence: esophagitis presence not specified Qualified Code(s) : K21.9 - Gastro-esophageal reflux disease without esophagitis (9) Hydrocele Current Visit: Yes Status: Chronic Plan: Patient had bilateral hydrocele repair by urology in the past in [place]. Repeat scrotal ultrasound shows 5.3 cm complex left hydrocele. This will be further addressed as an outpatient. Qualifiers: Hydrocele type: unspecified Qualified Code(s): N43.3 - Hydrocele, unspecified (10) Incarcerated inguinal hernia Onset Date: 03/27/18 Current Visit: Yes Status: Acute Plan: Patient had right inguina hernia repair with mesh by surgery 2 days ago. Patient doing well. Continue postoperative care. No heavy lifting, pushing or pulling. Will advance diet. Anticipate discharge by surgery today. (11) Solitary left kidney Current Visit: Yes Status: Chronic Plan: Patient with history of solitary left kidney. Overall stable. Will monitor electrolytes. Continue as above. Discharge Plan: Home Plan to discharge in: 24 Hours Time Spent Managing Pts Care (In Minutes): 55
[2018-03-29] MEDS: AMLODIPINE 5 MG TAB PO SCH (10:40)
[2018-03-29] MEDS: LISINOPRIL 20 MG TAB PO SCH (10:40)
[2018-03-29] MEDS: CELECOXIB 100 MG CAPSULE PO SCH (10:41)
[2018-03-29] MEDS: TAMSULOSIN 0.4 MG SR CAP PO SCH (10:42)
[2018-03-29] MEDS: VALSARTAN 160 MG TAB PO SCH (10:42)
[2018-03-29] MEDS: CEFTRIAXONE/SWI 1gm 1 GM/10 ML SYR IV SCH (10:43)
--- NOTE | 2018-03-29 14:16 | P.PN ---
Date of Service: 03/29/18 S: Patient is awake, alert, very thankful for his surgery. He is anxious to go home today. O: Adequate urine output. Wounds are clean. Mild edema in the operative area. A: Surgically stable P: Discharge home, see me next Sunday.
[2018-03-29] MEDS ORDERED: DOCUSATE NA 100 MG CAP PO ONE (15:51)
[2018-03-29 16:27] VITALS: BP 146/80; TEMP 97
--- NOTE | 2018-04-14 19:33 | P.DS ---
Admission Date: 03/27/18 Discharge Date: 04/14/18 Primary Care Provider: Dr. Bone; Dr. Daniel([facility]); Urology-Dr. Mascorro Disposition: ROUTINE DISCHARGE Discharge Condition: GOOD Reason for Admission: Hematuria, urinary retention Consultations: Dr. Hoffman for medical management Procedures: Laparoscopic reduction repair of incarcerated right inguinal hernia with mesh Brief History of Present Illness: This patient, recently had a right hydrocelectomy prepared. He presents today with severe onset of right lower quadrant abdominal pain and a bulge in his right groin that would not go back inside. He was seen in the emergency room. They were able to reduce it. Following morning he was brought to the operating room for a laparoscopic repair abduction repair of this incarcerated right inguinal hernia. He tolerated it well and was admitted postoperatively for observation pain control. Hospital Course: The patient came to the ER, underwent his operative procedure. He was admitted postoperatively for observation pain control. He developed urinary retention. It was necessary to place a Harrison catheter. He was also seen in consultation for his medical issues with Dr. Hoffman. On the morning of discharge tube was up ambulating, had a Harrison catheter in place and has an appointment with his urologist as an outpatient. He will be seeing me next week in my office. Home health care nurses have been arranged. Vital Signs/Physical Exam: Temp Pulse Resp BP Pulse Ox 97.0 F 75 18 146/80 H 96 03/29/18 16:00 03/29/18 16:00 03/29/18 16:00 03/29/18 16:00 03/29/18 16:00 Laboratory Data at Discharge: WBC 7.7 K/uL (4.3-10.9) 03/27/18 00:10 Hgb 14.3 g/dL (13.6-17.9) 03/27/18 00:10 Hct 42.9 % (39.6-49.0) 03/27/18 00:10 Plt Count 247 K/uL (152-406) 03/27/18 00:10 Sodium 137 mmol/L (136-145) 03/27/18 00:10 Potassium 3.4 mmol/L (3.5-5.1) L 03/27/18 00:10 BUN 15 mg/dL (7-18) 03/27/18 00:10 Creatinine 0.70 mg/dL (0.55-1.3) 03/27/18 00:10 Glucose 104 mg/dL (74-106) 03/27/18 00:10 Total Bilirubin 0.6 mg/dL (0.2-1.0) 03/27/18 00:10 AST 22 U/L (15-37) 03/27/18 00:10 ALT 24 U/L (12-78) 03/27/18 00:10 Alkaline Phosphatase 105 U/L (45-117) 03/27/18 00:10 Amylase 54 U/L (25-115) 03/27/18 00:10 Lipase 132 U/L (73-393) 03/27/18 00:10 Home Medications: Amlodipine/Valsartan [Exforge 5-160 mg Tablet] 1 each PO DAILY 04/21/13 Aspirin [Aspirin EC 81 MG] 81 mg PO DAILY 04/21/13 Esomeprazole Mag Trihydrate [Nexium] 40 mg PO DAILY 04/21/13 Lisinopril [Prinivil*] 40 mg PO BID 04/21/13 Metoprolol Succinate [Toprol Xl*] 25 mg PO BEDTIME 04/21/13 Nitroglycerin [Nitrostat*] 0.4 mg SL PRN PRN 04/21/13 Levothyroxine [Synthroid*] 25 mcg PO ACB 03/29/17 Pravastatin Sodium 80 mg PO DAILY 03/29/17 Tamsulosin [Flomax*] 0.4 mg PO DAILY 03/29/17 Cefadroxil Hydrate [Duricef] 500 mg PO BID 03/27/18 Celecoxib [Celebrex] 200 mg PO BID 03/27/18 Mirabegron [Myrbetriq] 25 mg PO BEDTIME 03/27/18 Tramadol HCl [Ultram] 50 mg PO Q6H 03/27/18 Followup: Denilson Presley MD [ACTIVE - CAN ADMIT] - 1 Week (call the office on Sunday to make an appointment on Sunday. )
== END 2018-03-29 18:18 | disposition home or self-care (01) | DRG 351 ==
LOC: ER 23:26 → ERHOLD 03-27 05:03 → 4TH 03-27 05:40
PROVIDERS: ADMIT Surgery; ATTEND Surgery
PROC: 0YU54JZ Supplement Right Inguinal Region with Synthetic Substitute, Percutaneous Endoscopic Approach (ICD-10-PCS; principal; 2018-03-27 10:00)
DX: K40.30 Unilateral inguinal hernia, with obstruction, without gangrene, not specified as recurrent (principal); K50.90 Crohn's disease, unspecified, without complications; N40.1 Benign prostatic hyperplasia with lower urinary tract symptoms; R33.8 Other retention of urine; R32 Unspecified urinary incontinence; E78.5 Hyperlipidemia, unspecified; I25.10 Atherosclerotic heart disease of native coronary artery without angina pectoris; E03.9 Hypothyroidism, unspecified; K21.9 Gastro-esophageal reflux disease without esophagitis; N43.3 Hydrocele, unspecified; R31.9 Hematuria, unspecified; Z88.5 Allergy status to narcotic agent; Z79.82 Long term (current) use of aspirin; I11.0 Hypertensive heart disease with heart failure; I50.9 Heart failure, unspecified; Z95.5 Presence of coronary angioplasty implant and graft; F17.200 Nicotine dependence, unspecified, uncomplicated; Z90.5 Acquired absence of kidney
CPT/HCPCS: 36415; 71045; 74177; 76857; 76870; 80048; 80076; 81003; 81015; 82150; 83690; 85025; 86850; 86900; 86901; 87086; 87088; 93005; 94760; 99285; J0690; J0696; J2175; J2405; J2550; J2710; J3010; J7030; Q9967

== ENCOUNTER 2023-02-27 03:08 | Emergency (ER) | payer OTHER ==
--- OUTSIDE RECORDS SUMMARY | 2023-02-27 03:10 | XMS REPORT | Clinical Summary ---
:1940 Author Organization [facility] Address [address] [place] [address] Care Team Providers Name Role Phone oJno Daniel MD Unavailable Estrella Tee MD Unavailable Yomaira Pizarro MD Primary Care Provider Allergies Active Allergy Reactions Severity Noted Date Comments Atorvastatin Other (See Comments) 09/27/2018 Muscle aches Codeine Other (See Comments), Nausea Only, GI 08/2015 Intolerance Rosuvastatin Other (See Comments) 09/27/2018 Muscle aches Medications Medication Sig Dispensed Refills Start Date End Date Status apixaban (ELIQUIS) 0 11/02/2018 Active 2.5 mg tablet aspirin 81 mg EC 0 02/19/2015 Ac tive tablet metoprolol 0 02/20/2016 Active guerrero-hydrochlorothiaz 50-12.5 mg Tb24 furosemide (LASIX) 0 11/02/2018 Active 40 mg tablet esomeprazole 0 02/19/2014 Active (NexIUM) 40 MG capsule levothyroxine 0 02/19/2018 Activ e (SYNTHROID) 25 mcg tablet tamsulosin (FLOMAX) 0 04/01/2018 Active 0.4 mg 24 hr capsule amLODIPine (NORVASC) 5 mg. 0 Active 5 mg tablet nitroglycerin 0.4 mg. 0 Active (NITROSTAT) 0.4 mg SL tablet Praluent Pen 75 ONE INJECTION 0 09/04/2020 Active mg/mL pnij SUBCUTANEOUSLY EVERY 2 WEEKS mupirocin Apply topically to 22 g 1 02/10/2021 Active (BACTROBAN) 2% affected area(s) ointmentIndications: twice daily. 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 Active Problems Not on file Social History Tobacco Use Types Packs/Day Years Used Date Smoking Tobacco: Never Smokeless Tobacco: Never Sex Assigned at Date Recorded Not on file Job Start Date Occupation Industry Not on file Not on file Not on file Obstetrics History Last Filed Vital Signs Not on file Plan of Treatment Health Maintenance Due Date Last Done Comments COVID-19 Vaccination (#1) 1940 Results Not on fileafter 02/27/2022 Insurance Payer Benefit Plan / Subscriber ID Effective Phone Address T ype Group Dates [facility] MEDICARE [id number] 2020-Prese [address] [address] Medicare HEALTHCARE ADVANTAGE [place] [id number] Care Teams [place] Relationship Specialty Start Date End Date Jono Daniel, PCP - External Primary Internal Medicine 11/26 MD Care Provider Estrella Tee MD PCP - External Referring Dermatology 11/26/18 Yomaira Pizarro, PCP - General Dermatology 11/28/18
--- OUTSIDE RECORDS SUMMARY | 2023-02-27 03:17 | XMS REPORT | Continuity of Care Document ---
:1940 Author Organization [facility] t Address [address] [place] [address] [address] [place] [address] Care Team Providers Name Role Phone [phone] Primary Care Physician Unavailable JONO DANIEL Attending Clinician Unavailable LUIS QUIJANO Attending Clinician Unavailable LILA VASQUEZ Attending Clinician Unavailable SYSTEM, PROVIDER NOT IN Attending Clinician Unavailable CALE KAUR Attending Clinician Unavailable VASQUEZ KU Attending Clinician Unavailable Flynn Francis MD Attending Clinician Estrella Tee MD Attending Clinician Laura Brasher LVN Attending Clinician Unavailable Abhay Izaguirre MD Attending Clinician Provider, Unknown Attending Clinician Unavailable MD ABHAY IZAGUIRRE Attending Clinician Unavailable Brooke Roque RN Attending Clinician Unavailable NORRIS MENDEZ Attending Clinician Unavailable ALLEGRA CHAHAL Attending Clinician Unavailable DEEPA SOTO Attending Clinician Unavailable CHETAN MCMILLAN I. Attending Clinician Unavailable ABHAY IZAGUIRRE Admitting Clinician Unavailable MD ABHAY IZAGUIRRE Admitting Clinician Unavailable ALLEGRA CHAHAL Admitting Clinician Unavailable CHETAN MCMILLAN I. Admitting Clinician Unavailable Payers Payer Name Policy Type Policy Number Effective Date Expiration Date S ource [facility] MEDICARE [id number] 2021 ADVANTAGE 00:00:00 [facility] MEDICARE [id number] 2020 ADVANTAGE 00:00:00 [employer] CHOICE [id number] 2018 MEDICARE PPO 00:00:00 Problems Condition Condition Condition Status Onset Resolution Last Treating Co mments Source Name Details Category Date Date Treatment Clinician Date Vitamin D Vitamin D Disease Active [facility] deficiency deficiency 5-19 He alth 00:00: 00 Acute pain Acute pain Disease Active U T of left of left 4-13 Health knee knee 00:00: 00 Primary Primary Disease Active UT osteoarthr osteoarthr 4-13 He alth itis of itis of 00:00: left knee left knee 00 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 4-13 Health deformity deformity 00:00: knee, left knee, left 00 Primary Primary Disease Active UT osteoarthr osteoarthr 4-13 He alth itis of itis of 00:00: left left 00 shoulder shoulder Dizzy Dizzy Disease Active UT spells spells 6-23 Health 00:00: 00 Healthcare Healthcare Disease Active U T maintenanc maintenanc 2-24 He alth e e 00:00: 00 HLD HLD Disease Active UT (hyperlipi (hyperlipi 2-24 He alth demia) demia) 00:00: 00 HTN HTN Disease Active UT (hypertens (hypertens 2-24 He alth ion) ion) 00:00: 00 Benign Benign Disease Active [facility] prostatic prostatic 2-24 Heal th hyperplasi hyperplasi 00:00: a with a with 00 lower lower urinary urinary tract tract symptoms symptoms Coronary Coronary Disease Active [facility] artery artery 8-19 Health disease disease 00:00: involving involving [place] coronary coronary artery of artery of [place] heart with heart with angina angina pectoris pectoris Acute Acute Disease Active UT diastolic diastolic 8-19 Heal th (congestiv (congestiv 00:00: e) heart e) heart 00 failure failure Peripheral Peripheral Disease Active U T vascular vascular 8-19 Health disease, disease, 00:00: unspecifie unspecifie 00 d d Sick sinus Sick sinus Disease Active U T syndrome syndrome 8-19 Health 00:00: 00 Coronary Coronary Disease Active [facility] artery artery 8-19 Health disease disease 00:00: involving involving 00 [place] coronary coronary artery of artery of [place] heart with heart with angina angina pectoris pectoris Coronary Coronary Disease Active [facility] artery artery 6-18 st disease disease 00:00: Hospita involving involving 00 l [place] coronary coronary artery artery with with angina angina pectoris pectoris Coronary Coronary Disease Active [facility] artery artery 6-[facility] st disease disease 00:00: Hospita involving involving 00 l [place] coronary coronary artery artery with with angina angina pectoris pectoris ACUTE ACUTE Diagnosis Active 2019-102020-07-14 Mem oria CHEST PAIN CHEST PAIN 0-05 09:36:00 l Active 00:00: [place] 07/12/2020 00 [facility] [place] CHEST CHEST Diagnosis Active 2019-102020-07-13 Mem oria PAIN, PAIN, 0-05 00:16:00 l COVID-19 COVID-19 00:00: [place] VIRUS VIRUS 00 Active 07/12/2020 [facility] [place] FLU LIKE FLU LIKE Diagnosis Active 2019-11-10 Memreshma SYMPTOMS SYMPTOMS 2-03 11:32:00 l Active 06:00: [place] 11/10/2019 00 [facility] [place] BREATHING BREATHING Diagnosis Active 2019-05-12 [facility]oria PROBLEM PROBLEM 8 13:40:00 l Active 06:00: [place] 05/12/2019 00 [facility] [place] SENT BY SENT BY Diagnosis Active 2018-11-01 Memoria DOCTOR DOCTOR 11-01 15:32:00 l Active 00:00: [place] 11/01/2018 00 [facility] [place] ACUTE ACUTE Diagnosis Active 2018-11-05 Mem oria CHEST CHEST 11-01 14:14:00 l PAIN, PAIN, 00:00: [place] ATRIA ATRIA 00 FIBRILLATI FIBRILLATI ON NEW ON NEW Active 11/01/2018 [facility] [place] TESTICULAR TESTICULA Diagnosis Active 2017-10-09 [facility] PAIN/RIGHT R 1 14:42:00 l PAIN/RIGHT 00:00: [place] Active 00 10/09/2017 [facility] [place] M25.571 - M25.571 - Diagnosis Active 2016-04-17 [facility] PAIN IN PAIN IN 2-03 10:54:00 l RIGHT RIGHT 00:01: [place] ANKLE AND ANKLE AND 00 JOINTS JOINTS Active 11/10/2015 AJAY Hinds Chest wall Chest Problem Active 2020-07-19 M emoria pain wall pain - 07:09:55 l (finding) (finding) 00:00: Herm jose Active 00 10/18/2014 Problem 07/19/2020 Data migrated from [employer] on 03/09/15. [facility] AJAY Hinds, AJAY Arias,[facility], [place] Coronary Coronary Problem Active 2020-07-19 [facility] arterioscl arterioscl 10-18 07:09:55 l erosis erosis 00:00: [place] (disorder) (disorder) 00 Active 10/18/2014 Problem 07/19/2020 Data migrated from [employer] on 03/09/15. 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 [facility], [place],[facility] AJAY Hinds, AJAY Arias,[facility], [place] APNEA APNEA Diagnosis Active 2019-03-28 Mem oria Active 10-08 15:05:00 l 10/08/2000 00:00: [place] [address] Acute Acute Problem 2019-05-22 Memor ia diastolic diastolic 14:13:43 l (congestiv (congestiv He rmann e) heart e) heart failure failure 05/22/2019 [facility] Acute Acute Problem 2019-05-22 Memor ia kidney kidney 14:13:43 l failure, failure, [place] unspecifie unspecifie d d 05/22/2019 [facility] Renal Renal Problem 2019-05-22 Memor ia agenesis, agenesis, 14:13:43 l unilateral unilateral He rmann 05/22/2019 [facility] Atheroscle Atheroscl Problem 2019-05-22 Memoria rotic erotic 14:13:43 l heart heart [place] disease of disease of [place] coronary coronary artery artery without without angina angina pectoris pectoris 05/22/2019 [facility] Hypertensi Problem 2019-05-22 M emoria ve heart Hypertensi 14:13:43 l disease ve heart [place] with heart disease failure with heart failure 05/22/2019 [facility] Peripheral Periphera Problem 2019-05-22 Memoria vascular l vascular 14:13:43 l disease, disease, [place] n unspecifie unspecifie d d 05/22/2019 [facility] correction correction Problem 2019-05-22 Memoria (current) (current) 14:13:43 l use of use of [place] aspirin aspirin 05/22/2019 [facility] Presence Presence Problem 2019-05-22 Memoria of of 14:13:43 l coronary coronary [place] n angioplast angioplast y implant y implant and graft and graft 05/22/2019 [facility] Unspecifie Unspecifi Problem 2019-05-22 Memoria d 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:13:43 l 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 05/22/2019 [facility] Hyperlipid Hyperlipi Problem 2019-05-22 Memoria shirin winter, 14:13:43 l unspecifie unspecifie He rmann d d 05/22/2019 [facility] Chest Chest Problem 2020-07-19 Memor ia pain, pain, 07:09:55 l unspecifie unspecifie He rmann d d 07/19/2020 [facility] CHEST CHEST Diagnosis Active 2020-07-14 Mem oria PAIN, PAIN, 09:36:00 l UNSPECIFIE UNSPECIFIE He rmann D D Active [facility] [place] COVID-19 COVID-19 Diagnosis Active 2020-07-13 [facility]oria Active 00:16:00 [facility] [place] LT LT Diagnosis Active 2016-01-06 Mem oria SHOULDER SHOULDER 13:50:00 l UDU NAI UDU NAI [place] Active [facility] LT LT Diagnosis Active 2016-03-04 Mem oria SHOULDER SHOULDER 16:24:00 l Active [place] [facility] PAIN IN PAIN IN Diagnosis Active 2016-01-06 Memoria LEFT LEFT 13:50:00 l SHOULDER SHOULDER [place] Active [facility] UNSPECIFIE UNSPECIFI Diagnosis Active 2018-11-05 Memoria D ATRIAL ED ATRIAL 14:14:00 l FIBRILLATI FIBRILLATI He rmann ON ON Active [facility] [place] HEART HEART Diagnosis Active 2018-11-05 Mem oria FAILURE, FAILURE, 14:14:00 l UNSPECIFIE UNSPECIFIE He rmann D D Active [facility] [place] History of Past Illness Condition Condition Condition Status Onset Resolution Last Treating Co mments Source Name Details Category Date Date Treatment Clinician Date Influenza Influenza Problem 2019-11-12 2019-11-12 Memoria due to due to 11-10 22:36:51 22:36:51 l other other 18:00: [place] identified identified 00 influenza influenza virus with virus with other other respirator respirator y y manifestat manifestat ions ions 11/10/2019 11/12/2019 [facility] Paroxysmal Paroxysma Problem 2019-05-22 2019-05-22 Memoria atrial l atrial 11-16 14:13:43 14:13:43 l fibrillati fibrillati 04:49: He rmann on on 11/16/2018 05/22/2019 [facility] Acute Acute Problem 2018-2019-05-14 2019-05-14 M emoria bronchitis bronchitis 05-12 21:53:18 21:53:18 l , , 17:00: [place] unspecifie unspecifie 00 d d 05/12/2019 05/14/2019 [place] [facility] Right Right Problem 2017-10-12 2017-10-12 M emoria testicular testicular 10-09 04:44:06 04:44:06 l pain pain 06:00: [place] 10/09/2017 00 10/12/2017 [facility] Allergies, Adverse Reactions, Alerts Allergy Allergy Status Severity Reaction(s) Onset Inactive Treating Comm ents Source Name Type Date Date Clinician Codeine Allergy Active [facility] to 04-20 Health substanc 00:00: e 00 Atorvast Propensi Active Other (See 2017-10 Muscle Un mimi atin ty to Comments) 2-21 aches ity of adverse 00:00: [place] reaction 00 MD [facility] Rosuvast Propensi Active Other (See 2017-10 Muscle Un mimi atin ty to Comments) 2- aches ity of adverse 00:00: [place] reaction 00 MD [facility] Atorvast Propensi Active Other (See 2017-10 Muscle [facility] thodi atin ty to Comments) 2- aches st adverse 00:00: Hospita reaction 00 l s to drug Codeine Propensi Active GI 2017-10 [facility] ty to Intolerance 11-28 st adverse 00:00: Hospita reaction 00 l s to drug Rosuvast Propensi Active Other (See 2017-10 Muscle [facility] atin ty to Comments) 11-[address] adverse 00:00: Hospita reaction 00 l s to drug Atorvast Allergy Active Unknown 2017-10 Muscle [facility] atin to 11-28 achesMusc Health substanc 00:00: le e 00 achesMusc le achesMusc le aches Rosuvast Allergy Active Other 2017-10 Muscle [facility] atin to 11-28 achesMusc Health substanc 00:00: le e 00 achesMusc le achesMusc le aches Codeine Propensi Active Nausea Only [facility] adverse 00:[facility]: [facility] reaction 00 Center s codeine codeine Active Memoria 1-11 l 06:00: [place] 00 Codeine Drug Active [facility] Allergy Intolerance 10-18 ity of 00:00: [place] 00 MD [facility] Social History Social Habit Start Date Stop Date Quantity Comments Source History SDOH [facility] Alcohol Frequency [facility] History SDOH [facility] St[facility] Drinks [facility] History SDOH [facility] Alcohol Binge Medical [facility] Exposure to 2023-02-13 2023-02-23 Not sure [facility] SARS-CoV-2 (event) 00:00:00 13:22:00 History of Social 2023-01-08 2023-01-[address] function 00:00:00 00:00:00 Hospital Tobacco use and 2022-10-11 2022-10-11 Smokeless [facility] exposure 00:00:00 00:00:00 tobacco non-user Alcohol intake 2021-03-28 2021-03-28 Current drinker [facility] 00:00:00 00:00:00 of alcohol Hospital (finding) Social History 2018-11-02 2018-11-02 [facility] jd 04:28:52 04:28:52 Alcohol Comment 2018-01-30 2018-01-30 haresh Hunt 00:00:00 00:00:00 [facility] Sex Assigned At [birth year] [facility] 00:00:00 00:00:00 Hospital Smoking Status Start Date Stop Date Source Never smoked tobacco [facility] Medications Ordered Filled Start Stop Current Ordering Indication Dosage Frequency Signature Comments Components Source Medication Medication Date Date Medication? Clinician (SIG) Name Name esomeprazol Yes 40mg QD Take 40 mg UT e (NexIUM) 5-19 by mouth 1 Hea lth 40 MG 13:38: (one) time packet 19 each day. esomeprazol Yes 40mg QD Take 40 mg UT e (NexIUM) 5-05 by mouth 1 Hea lth 40 MG 13:33: (one) time packet 53 each day. Vibegron Yes [id number] 75mg QD Take 75 mg UT (Gemtesa) 5-05 by mouth 1 Heal th 75 MG 00:00: (one) time tablet 00 each day. Vibegron Yes [id number] 75mg QD Take 75 mg UT (Gemtesa) 5-05 by mouth 1 Heal th 75 MG 00:00: (one) time tablet 00 each day. finasteride 2023- Yes [id number] 5mg QD Take 1 UT (Proscar) 5 5-05 05-05 9102 tablet (5 He alth MG tablet 00:00: 04:59 mg total) 00 :00 by mouth 1 (one) time each day. Do not crush, chew, or split. finasteride 2023- Yes [id number] 5mg QD Take 1 UT (Proscar) 5 5-05 05-05 9102 tablet (5 He alth MG tablet 00:00: 04:59 mg total) 00 :00 by mouth 1 (one) time each day. Do not crush, chew, or split. triamcinolo 2022- No [id number] 10mg UT ne 01-18 9109 Health acetonide 19:45: 19:45 (Kenalog) 00 :00 10 MG/ML injection 10 mg bupivacaine 0 2022- No [id number] 1mL UT (Marcaine) 01-18 9109 Health 0.25 % 19:45: 19:45 injection 1 00 :00 mL lidocaine 2022-0 2022- No [id number] 1mL UT (Xylocaine) 01-18 9109 Health 1 % 19:45: 19:45 injection 1 00 :00 mL lidocaine 2022-0 2022- No [id number] 1mL 1 mL, UT (Xylocaine) 01-18 9109 Injection, H ealth 1 % 19:45: 19:45 Once PRN injection 1 00 :00 Procedure, mL Starting on Annamaria 01/18/23 at 1445, For 1 dose bupivacaine 2022-0 2022- No [id number] 1mL 1 mL, UT (Marcaine) 01-18 9109 Injection, He alth 0.25 % 19:45: 19:45 Once PRN injection 1 00 :00 Procedure, mL Starting on Annamaria 01/18/23 at 1445, For 1 dose triamcinolo 2022-2022- No [id number] 10mg 10 mg, UT ne 01-18 9109 [facility] acetonide 19:45: 19:45 bear (Kenalog) 00 :00 Once PRN 10 MG/ML Procedure, injection Starting 10 mg on Annamaria 01/18/23 at 1445, For 1 dose esomeprazol 2022-0 Yes 40mg QD Take 40 mg UT e (NexIUM) 2-23 by mouth 1 a lt 40 MG 14:38: (one) time packet 23 each day. esomeprazol 2022-0 Yes 40mg QD Take 40 mg UT e (NexIUM) 2-23 by mouth 1 a lt 40 MG 14:38: (one) time packet 23 each day. esomeprazol 2023-0 Yes 40mg QD Take 40 mg UT e (NexIUM) 2-23 by mouth 1 a lt 40 MG 14:38: (one) time packet 23 each day. valsartan-h 2022-0 Yes 1{tbl} Take 1 UT ydroCHLOROt 2-13 tablet by [facility] hiazide 00:00: mouth 1 (Diovan-HCT 00 (one) time ) 160-12.5 each day MG tablet in the morning. valsartan-h 2023-0 Yes 1{tbl} Take 1 UT ydroCHLOROt 2-13 tablet by [facility] hiazide 00:00: mouth 1 (Diovan-HCT 00 (one) time ) 160-12.5 each day MG tablet in the morning. valsartan-h 2023-0 Yes 1{tbl} Take 1 UT ydroCHLOROt 2-13 tablet by [facility] hiazide 00:00: mouth 1 (Diovan-HCT 00 (one) time ) 160-12.5 each day MG tablet in the morning. valsartan-h 2023-0 Yes 1{tbl} Take 1 UT ydroCHLOROt 2-13 tablet by [facility] hiazide 00:00: mouth 1 (Diovan-HCT 00 (one) time ) 160-12.5 each day MG tablet in the morning. valsartan-h 2023-0 Yes 1{tbl} Take 1 UT ydroCHLOROt 2-13 tablet by [facility] hiazide 00:00: mouth 1 (Diovan-HCT 00 (one) time ) 160-12.5 each day MG tablet in the morning. levothyroxi 2023-0 Yes 50ug QD Take 50 UT ne 2-09 mcg by Health (Synthroid, 00:00: mouth 1 Levoxyl) 50 00 (one) time MCG tablet each day. levothyroxi 2023-0 Yes 50ug QD Take 50 UT ne 2-09 mcg by Health (Synthroid, 00:00: mouth 1 Levoxyl) 50 00 (one) time MCG tablet each day. levothyroxi 2023-0 Yes 50ug QD Take 50 UT ne 2-09 mcg by Health (Synthroid, 00:00: mouth 1 Levoxyl) 50 00 (one) time MCG tablet each day. levothyroxi 2023-0 Yes 50ug QD Take 50 UT ne 2-09 mcg by Health (Synthroid, 00:00: mouth 1 Levoxyl) 50 00 (one) time MCG tablet each day. levothyroxi 2023-0 Yes 50ug QD Take 50 UT ne 2-09 mcg by Health (Synthroid, 00:00: mouth 1 Levoxyl) 50 00 (one) time MCG tablet each day. amLODIPine 2021-10 Yes 10mg Take 10 mg U T (Norvasc) 2-26 by mouth 1 Heal th 10 MG 00:00: (one) time tablet 00 each day in the morning. amLODIPine 2021-10 Yes 10mg Take 10 mg U T (Norvasc) 2-26 by mouth 1 Heal th 10 MG 00:00: (one) time tablet 00 each day in the morning. amLODIPine 2021-10 Yes 10mg Take 10 mg U T (Norvasc) 2-26 by mouth 1 Heal th 10 MG 00:00: (one) time tablet 00 each day in the morning. amLODIPine 2021-10 Yes 10mg Take 10 mg U T (Norvasc) 2-26 by mouth 1 Heal th 10 MG 00:00: (one) time tablet 00 each day in the morning. amLODIPine 2021-10 Yes 10mg Take 10 mg U T (Norvasc) 2-26 by mouth 1 Heal th 10 MG 00:00: (one) time tablet 00 each day in the morning. tamsulosin 2021-10 Yes [id number] TAKE 1 UT (Flomax) 0-11 CAPSULE BY Healt h 0.4 MG 24 00:00: MOUTH hr capsule 00 TWICE A DAY tamsulosin 2021-10 Yes [id number] TAKE 1 UT (Flomax) 0-11 CAPSULE BY Healt h 0.4 MG 24 00:00: MOUTH hr capsule 00 TWICE A DAY tamsulosin 2021-10 Yes [id number] TAKE 1 UT (Flomax) 0-11 CAPSULE BY Healt h 0.4 MG 24 00:00: MOUTH hr capsule 00 TWICE A DAY tamsulosin 2021-10 Yes [id number] TAKE 1 UT (Flomax) 0-11 CAPSULE BY Healt h 0.4 MG 24 00:00: MOUTH hr capsule 00 TWICE A DAY tamsulosin 2021-10 Yes [id number] TAKE 1 UT (Flomax) 0-11 CAPSULE BY Healt h 0.4 MG 24 00:00: MOUTH hr capsule 00 TWICE A DAY tamsulosin 2021-10 Yes [id number] TAKE 1 UT (Flomax) 0-11 CAPSULE BY Healt h 0.4 MG 24 00:00: MOUTH hr capsule 00 TWICE A DAY gabapentin 2022- No [id number] 100mg Take 1 UT (Neurontin) 06-01 capsule Heal th 100 MG 00:00: 00:00 (100 mg capsule 00 :00 total) by mouth every night. gabapentin 2022- No [id number] 100mg Take 1 UT (Neurontin) 06-01 capsule Heal th 100 MG 00:00: 05:59 (100 mg capsule 00 :00 total) by mouth every night. gabapentin 2022- No [id number] 100mg Take 1 UT (Neurontin) 06-01 capsule Heal th 100 MG 00:00: 05:59 (100 mg capsule 00 :00 total) by mouth every night. gabapentin 2022- No [id number] 100mg Take 1 UT (Neurontin) 06-01 capsule Heal th 100 MG 00:00: 05:59 (100 mg capsule 00 :00 total) by mouth every night. amLODIPine- 2021- No 1{tbl} QD Take 1 U T valsartan 04-19 07-13 tablet by Heal th (Exforge) 14:26: 00:00 mouth 1 5-160 MG 33 :00 (one) time tablet each day. esomeprazol Yes 40mg QD Take 40 mg UT e (NexIUM) 7-13 by mouth 1 Hea lth 40 MG 14:05: (one) time packet 47 each day. esomeprazol 2021-0 Yes 40mg QD Take 40 mg UT e (NexIUM) 7-13 by mouth 1 Hea lth 40 MG 14:05: (one) time packet 47 each day. esomeprazol 2021-0 Yes 40mg QD Take 40 mg UT e (NexIUM) 7-13 by mouth 1 Hea lth 40 MG 14:05: (one) time packet 47 each day. esomeprazol 2021-0 Yes 40mg QD Take 40 mg UT e (NexIUM) 7-13 by mouth 1 Hea lth 40 MG 14:05: (one) time packet 47 each day. tamsulosin 2020-10 Yes [id number] TAKE 1 UT (Flomax) 2-30 CAPSULE BY Healt h 0.4 MG 24 00:00: MOUTH hr capsule 00 TWICE A DAY tamsulosin 2020-10 Yes [id number] TAKE 1 UT (Flomax) 2-30 CAPSULE BY Healt h 0.4 MG 24 00:00: MOUTH hr capsule 00 TWICE A DAY tamsulosin 2020-10 Yes [id number] TAKE 1 UT (Flomax) 2-30 CAPSULE BY Healt h 0.4 MG 24 00:00: MOUTH hr capsule 00 TWICE A DAY tamsulosin 2020-10 Yes [id number] TAKE 1 UT (Flomax) 2-30 CAPSULE BY Healt h 0.4 MG 24 00:00: MOUTH hr capsule 00 TWICE A DAY tamsulosin 2020-10 Yes [id number] TAKE 1 UT (Flomax) 2-30 CAPSULE BY Healt h 0.4 MG 24 00:00: MOUTH hr capsule 00 TWICE A DAY tamsulosin 2020-10- No [id number] TAKE 1 UT (Flomax) 2-30 10-11 CAPSULE BY Heal th 0.4 MG 24 00:00: 00:00 MOUTH hr capsule 00 :00 TWICE A DAY esomeprazol 0 Yes 40mg QD Take 40 mg UT e (NexIUM) 8-19 by mouth 1 Hea lth 40 MG 13:17: (one) time packet 55 each day. esomeprazol 0 Yes 40mg QD Take 40 mg UT e (NexIUM) 8-19 by mouth 1 Hea lth 40 MG 13:17: (one) time packet 55 each day. esomeprazol 0 Yes 40mg QD Take 40 mg UT e (NexIUM) 8-19 by mouth 1 Hea lth 40 MG 13:17: (one) time packet 55 each day. telmisartan 2020- No 40mg Q.5D Take 40 mg [facility] (MICARDIS) 6-26 03- by mouth 2 st 40 MG 19:06: 00:00 (two) Hospita tablet 23 :00 times a l day. amLODIPine 0 Yes 5mg Q.5D Take 5 mg Me thodi (NORVASC) 5 -[address] mg tablet 19:06: (two) Hospita 20 times a l day. aspirin 2021-0 Yes 81mg QD Take 81 mg Meth tia (ECOTRIN) 6-[address] 81 MG 19:06: nightly. Hospita enteric 20 l coated tablet tamsulosin Yes .4mg Q.5D Take 0.4 Met hodi (FLOMAX) 6-[address] 0.4 mg 19:06: mouth 2 Hospita capsule 20 (two) l times a day. levothyroxi Yes 25ug QD Take 25 Met hodi ne 6-[address] (SYNTHROID, 19:06: mouth Hospi ta LEVOXYL) 25 20 every l mcg tablet morning. metoprolol Yes 100mg QD Take 100 Me thodi succinate 6-[address] XL 19:06: mouth Hospita (TOPROL-XL) 20 every l 50 mg 24 hr evening. tablet esomeprazol Yes 40mg QD Take 40 mg Methodi e (NexIUM) 6-[address] 40 MG 19:06: daily Hospita capsule 20 before l breakfast. nitroglycer Yes .4mg Place 0.4 M ethodi in 6-[address] (NITROSTAT) 19:06: the tongue Hospita 0.4 MG SL 20 every 5 l tablet (five) minutes as needed for chest pain. alirocumab Yes 75mg Q14D Inject 75 Me thodi (Praluent 6-[address] Pen) 75 19:06: the skin Hospit a mg/mL pen 20 every 14 l injector (fourteen) subcutaneou days. s injection apixaban Yes 2.5mg Q.5D Take 2.5 Meth tia (ELIQUIS) 6-[address] 2.5 mg 19:06: mouth 2 Hospita tablet 20 (two) l times a day. furosemide Yes 40mg Take 40 mg M ethodi (LASIX) 40 6-[address] mg tablet 19:06: as needed Hos shailesh 20 (Edema). l zinc 50 mg 0 Yes 50mg QD Take 50 mg M ethodi tablet 6-[address] 19:06: daily. Hospita 20 l ascorbic 0 Yes 1000mg QD Take 1,000 M ethodi acid, 6-[address] vitamin C, 19:06: mouth Hospit a (VITAMIN C) 20 daily. l 500 MG tablet cholecalcif Yes 1000U QD Take 1,000 [facility]i akanksha, 6-[address] vitamin D3, 19:06: mouth Hospi ta 1,000 unit 20 daily. l tablet mecobalamin Yes 1000ug QD Chew 1,000 [facility] , vitamin 6-[address] B12, (B12 19:06: Hospita Active) 20 l 1,000 mcg tablet,chew able telmisartan 2020- No 40mg Q.5D Take 40 mg [facility] (MICARDIS) 6-19 -[address] 40 MG 14:06: 00:00 (two) Hospita tablet 23 :00 times a l day. amLODIPine 0 Yes 5mg Q.5D Take 5 mg Me thodi (NORVASC) 5 6-[address] mg tablet 14:06: (two) Hospita 20 times a l day. aspirin Yes 81mg QD Take 81 mg Meth tia (ECOTRIN) 6-[address] 81 MG 14:06: nightly. Hospita enteric 20 l coated tablet tamsulosin Yes .4mg Q.5D Take 0.4 Met hodi (FLOMAX) 6-[address] 0.4 mg 14:06: mouth 2 Hospita capsule 20 (two) l times a day. levothyroxi Yes 25ug QD Take 25 Met hodi ne 6-[address] (SYNTHROID, 14:06: mouth Hospi ta LEVOXYL) 25 20 every l mcg tablet morning. metoprolol Yes 100mg QD Take 100 [facility] succinate 6-[address] XL 14:06: mouth [facility]osp[facility] (TOPROL-XL) 20 every l 50 mg 24 hr evening. tablet esomeprazol Yes 40mg QD Take 40 mg [facility] (NexIUM) 6-[address] 40 MG 14:06: daily Hospita capsule 20 before l breakfast. nitroglycer Yes .4mg Place 0.4 M ethodi in 6-[address] (NITROSTAT) 14:06: the tongue Hospita 0.4 MG SL 20 every 5 l tablet (five) minutes as needed for chest pain. alirocumab 2020-0 Yes 75mg Q14D Inject 75 [facility] (Praluent 6-[address] Pen) 75 14:06: the skin Hospit a mg/mL pen 20 every 14 l injector (fourteen) subcutaneou days. s injection apixaban 0 Yes 2.5mg Q.5D Take 2.5 Meth tia (ELIQUIS) 6-[address] 2.5 mg 14:06: mouth 2 [facility]ospita tablet 20 (two) l times a day. furosemide 0 Yes 40mg Take 40 mg M [facility]i (LASIX) 40 6-[address] mg tablet 14:06: as needed Hos shailesh 20 (Edema). l zinc 50 mg 2020-0 Yes 50mg QD Take 50 mg M [facility] tablet 6-[address] 14:06: daily. Hospita 20 l ascorbic 2020-0 Yes 1000mg QD Take 1,000 M [facility]i acid, 6-[address] vitamin C, 14:06: mouth Hospit a (VITAMIN C) 20 daily. l 500 MG tablet cholecalcif 0 Yes 1000U QD Take 1,000 [facility] akaknsha, 6-[address] vitamin D3, 14:06: mouth Hospi ta 1,000 unit 20 daily. l tablet mecobalamin Yes 1000ug QD Chew 1,000 [facility] , vitamin 6-[address] B12, (B12 14:06: Hospita Active) 20 l 1,000 mcg tablet,chew able metoprolol Yes 100mg QD Take 100 [facility] succinate 6-[address] XL 14:06: mouth [facility]osp[facility] (TOPROL-XL) 20 every l 50 mg 24 hr evening. tablet esomeprazol 0 Yes 40mg QD Take 40 mg [facility] (NexIUM) 6-[address] 40 MG 14:06: daily [facility]ospita capsule 20 before l breakfast. nitroglycer 2020-[address] 0.4 M ethodi in 6-[address] (NITROSTAT) 14:06: the tongue [facility]ospita 0.4 MG SL 20 every 5 l tablet (five) minutes as needed for chest pain. alirocumab 2020-0 Yes 75mg Q14D Inject 75 [facility] (Praluent 6-[address] Pen) 75 14:06: the skin Hospit a mg/mL pen 20 every 14 l injector (fourteen) subcutaneou days. s injection apixaban 2020-0 Yes 2.5mg Q.5D Take 2.5 Meth tia (ELIQUIS) 6-[address] 2.5 mg 14:06: mouth 2 [facility]ospita tablet 20 (two) l times a day. furosemide 2020-0 Yes 40mg Take 40 mg M [facility]i (LASIX) 40 6-[address] mg tablet 14:06: as needed Hos shailesh 20 ([place]). l zinc 50 mg 2020-0 Yes 50mg QD Take 50 mg M [facility]i tablet 6-[address] 14:06: daily. Hospita 20 l ascorbic 2020-0 Yes 1000mg QD Take 1,000 M [facility]i acid, 6-[address] vitamin C, 14:06: mouth Hospit a (VITAMIN C) 20 daily. l 500 MG tablet cholecalcif 0 Yes 1000U QD Take 1,000 [facility] akanksha, 6-[address] vitamin D3, 14:06: mouth Hospi ta 1,000 unit 20 daily. l tablet mecobalamin 2020-0 Yes 1000ug QD Chew 1,000 [facility] , vitamin 6-[address] B12, (B12 14:06: Hospita Active) 20 l 1,000 mcg tablet,chew able amLODIPine 2020-0 Yes 5mg Q.5D Take 5 mg [facility] (NORVASC) 5 6-[address] mg tablet 14:06: (two) Hospita 20 times a l day. aspirin 2020-0 Yes 81mg QD Take 81 mg Meth tia (ECOTRIN) 6-[address] 81 MG 14:06: nightly. Hospita enteric 20 l coated tablet tamsulosin 2020-0 Yes .4mg Q.5D Take 0.4 [facility] (FLOMAX) 6-[address] 0.4 mg 14:06: mouth 2 [facility]ospita capsule 20 (two) l times a day. levothyroxi 2020-0 Yes 25ug QD Take 25 Met hodi ne 6-[address] (SYNTHROID, 14:06: mouth Hospi ta LEVOXYL) 25 20 every l mcg tablet morning. metoprolol 2021-0 Yes 50mg QD Take 50 mg U T succinate 6-19 by mouth 1 Heal th XL 00:00: (one) time (Toprol-XL) 00 each day. 50 MG 24 hr tablet ascorbic 2021-0 Yes 1000mg QD Take 1,000 U T acid 6-19 mg by Health (Vitamin C) 00:00: mouth 1 500 MG 00 (one) time tablet each day. cholecalcif 2021-0 Yes 1000U QD Take 1,000 UT akanksha 6-19 Units by Health (Vitamin 00:00: mouth 1 D-3) 25 MCG 00 (one) time (1000 UT) each day. tablet Methylcobal 2021-0 Yes 1000ug QD Chew 1,000 UT tobar 1 MG 6-19 mcg 1 Health chewable 00:00: (one) time tablet 00 each day. zinc 2021-0 Yes 50mg QD Take 50 mg UT gluconate 6-19 by mouth 1 Heal th 50 MG 00:00: (one) time tablet 00 each day. aspirin 81 2021-0 Yes 81mg QD Take 81 mg U T MG EC 6-19 by mouth 1 Health tablet 00:00: (one) time 00 each day. furosemide 2021-0 Yes 40mg Take 40 mg U T (Lasix) 40 6-19 by mouth. Heal th MG tablet 00:00: 00 levothyroxi 2021-0 Yes 25ug QD Take 25 UT ne 6-19 mcg by Health (Synthroid, 00:00: mouth 1 Levoxyl) 25 00 (one) time MCG tablet each day. metoprolol 2021-0 Yes 50mg QD Take 50 mg U T succinate 6-19 by mouth 1 Heal th XL 00:00: (one) time (Toprol-XL) 00 each day. 50 MG 24 hr tablet ascorbic 2021-0 Yes 1000mg QD Take 1,000 U T acid 6-19 mg by Health (Vitamin C) 00:00: mouth 1 500 MG 00 (one) time tablet each day. cholecalcif 2021-0 Yes 1000U QD Take 1,000 UT akanksha 6-19 Units by Health (Vitamin 00:00: mouth 1 D-3) 25 MCG 00 (one) time (1000 UT) each day. tablet Methylcobal 2021-0 Yes 1000ug QD Chew 1,000 UT tobar 1 MG 6-19 mcg 1 Health chewable 00:00: (one) time tablet 00 each day. zinc 2021-0 Yes 50mg QD Take 50 mg UT gluconate 6-19 by mouth 1 Heal th 50 MG 00:00: (one) time tablet 00 each day. aspirin 81 2021-0 Yes 81mg QD Take 81 mg U T MG EC 6-19 by mouth 1 Health tablet 00:00: (one) time 00 each day. furosemide 2021-0 Yes 40mg Take 40 mg U T (Lasix) 40 6-19 by mouth. Heal th MG tablet 00:00: 00 levothyroxi 2021-0 Yes 25ug QD Take 25 UT ne 6-19 mcg by Health (Synthroid, 00:00: mouth 1 Levoxyl) 25 00 (one) time MCG tablet each day. metoprolol 2021-0 Yes 50mg QD Take 50 mg U T succinate 6-19 by mouth 1 Heal th XL 00:00: (one) time (Toprol-XL) 00 each day. 50 MG 24 hr tablet ascorbic 2021-0 Yes 1000mg QD Take 1,000 U T acid 6-19 mg by Health (Vitamin C) 00:00: mouth 1 500 MG 00 (one) time tablet each day. cholecalcif 2021-0 Yes 1000U QD Take 1,000 UT akanksha 6-19 Units by Health (Vitamin 00:00: mouth 1 D-3) 25 MCG 00 (one) time (1000 UT) each day. tablet Methylcobal 2021-0 Yes 1000ug QD Chew 1,000 UT tobar 1 MG 6-19 mcg 1 Health chewable 00:00: (one) time tablet 00 each day. zinc 2021-0 Yes 50mg QD Take 50 mg UT gluconate 6-19 by mouth 1 Heal th 50 MG 00:00: (one) time tablet 00 each day. aspirin 81 2021-0 Yes 81mg QD Take 81 mg U T MG EC 6-19 by mouth 1 Health tablet 00:00: (one) time 00 each day. furosemide 2021-0 Yes 40mg Take 40 mg U T (Lasix) 40 6-19 by mouth. Heal th MG tablet 00:00: 00 levothyroxi 2021-0 Yes 25ug QD Take 25 UT ne 6-19 mcg by Health (Synthroid, 00:00: mouth 1 Levoxyl) 25 00 (one) time MCG tablet each day. metoprolol 2021-0 Yes 50mg QD Take 50 mg U T succinate 6-19 by mouth 1 Heal th XL 00:00: (one) time (Toprol-XL) 00 each day. 50 MG 24 hr tablet ascorbic 2021-0 Yes 1000mg QD Take 1,000 U T acid 6-19 mg by Health (Vitamin C) 00:00: mouth 1 500 MG 00 (one) time tablet each day. cholecalcif 2021-0 Yes 1000U QD Take 1,000 UT akanksha 6-19 Units by Health (Vitamin 00:00: mouth 1 D-3) 25 MCG 00 (one) time (1000 UT) each day. tablet Methylcobal 2021-0 Yes 1000ug QD Chew 1,000 UT tobar 1 MG 6-19 mcg 1 Health chewable 00:00: (one) time tablet 00 each day. zinc 2021-0 Yes 50mg QD Take 50 mg UT gluconate 6-19 by mouth 1 Heal th 50 MG 00:00: (one) time tablet 00 each day. aspirin 81 2021-0 Yes 81mg QD Take 81 mg U T MG EC 6-19 by mouth 1 Health tablet 00:00: (one) time 00 each day. metoprolol 2021-0 Yes 50mg QD Take 50 mg U T succinate 6-19 by mouth 1 Heal th XL 00:00: (one) time (Toprol-XL) 00 each day. 50 MG 24 hr tablet ascorbic 2021-0 Yes 1000mg QD Take 1,000 U T acid 6-19 mg by Health (Vitamin C) 00:00: mouth 1 500 MG 00 (one) time tablet each day. cholecalcif 2021-0 Yes 1000U QD Take 1,000 UT akanksha 6-19 Units by Health (Vitamin 00:00: mouth 1 D-3) 25 MCG 00 (one) time (1000 UT) each day. tablet Methylcobal 2021-0 Yes 1000ug QD Chew 1,000 UT tobar 1 MG 6-19 mcg 1 Health chewable 00:00: (one) time tablet 00 each day. zinc 2021-0 Yes 50mg QD Take 50 mg UT gluconate 6-19 by mouth 1 Heal th 50 MG 00:00: (one) time tablet 00 each day. aspirin 81 2021-0 Yes 81mg QD Take 81 mg U T MG EC 6-19 by mouth 1 Health tablet 00:00: (one) time 00 each day. metoprolol 2021-0 Yes 50mg QD Take 50 mg U T succinate 6-19 by mouth 1 Heal th XL 00:00: (one) time (Toprol-XL) 00 each day. 50 MG 24 hr tablet ascorbic 2021-0 Yes 1000mg QD Take 1,000 U T acid 6-19 mg by Health (Vitamin C) 00:00: mouth 1 500 MG 00 (one) time tablet each day. cholecalcif 2021-0 Yes 1000U QD Take 1,000 UT akanksha 6-19 Units by Health (Vitamin 00:00: mouth 1 D-3) 25 MCG 00 (one) time (1000 UT) each day. tablet Methylcobal 2021-0 Yes 1000ug QD Chew 1,000 UT tobar 1 MG 6-19 mcg 1 Health chewable 00:00: (one) time tablet 00 each day. zinc 2021-0 Yes 50mg QD Take 50 mg UT gluconate 6-19 by mouth 1 Heal th 50 MG 00:00: (one) time tablet 00 each day. aspirin 81 2021-0 Yes 81mg QD Take 81 mg U T MG EC 6-19 by mouth 1 Health tablet 00:00: (one) time 00 each day. metoprolol 2021-0 Yes 50mg QD Take 50 mg U T succinate 6-19 by mouth 1 Heal th XL 00:00: (one) time (Toprol-XL) 00 each day. 50 MG 24 hr tablet ascorbic 2021-0 Yes 1000mg QD Take 1,000 U T acid 6-19 mg by Health (Vitamin C) 00:00: mouth 1 500 MG 00 (one) time tablet each day. cholecalcif 2021-0 Yes 1000U QD Take 1,000 UT akanksha 6-19 Units by Health (Vitamin 00:00: mouth 1 D-3) 25 MCG 00 (one) time (1000 UT) each day. tablet Methylcobal 2021-0 Yes 1000ug QD Chew 1,000 UT tobar 1 MG 6-19 mcg 1 Health chewable 00:00: (one) time tablet 00 each day. zinc 2021-0 Yes 50mg QD Take 50 mg UT gluconate 6-19 by mouth 1 Heal th 50 MG 00:00: (one) time tablet 00 each day. aspirin 81 2021-0 Yes 81mg QD Take 81 mg U T MG EC 6-19 by mouth 1 Health tablet 00:00: (one) time 00 each day. metoprolol 2021-0 Yes 50mg QD Take 50 mg U T succinate 6-19 by mouth 1 Heal th XL 00:00: (one) time (Toprol-XL) 00 each day. 50 MG 24 hr tablet ascorbic 2021-0 Yes 1000mg QD Take 1,000 U T acid 6-19 mg by Health (Vitamin C) 00:00: mouth 1 500 MG 00 (one) time tablet each day. cholecalcif 2021-0 Yes 1000U QD Take 1,000 UT akanksha 6-19 Units by Health (Vitamin 00:00: mouth 1 D-3) 25 MCG 00 (one) time (1000 UT) each day. tablet Methylcobal 2021-0 Yes 1000ug QD Chew 1,000 UT tobar 1 MG 6-19 mcg 1 Health chewable 00:00: (one) time tablet 00 each day. zinc 2021-0 Yes 50mg QD Take 50 mg UT gluconate 6-19 by mouth 1 Heal th 50 MG 00:00: (one) time tablet 00 each day. aspirin 81 2021-0 Yes 81mg QD Take 81 mg U T MG EC 6-19 by mouth 1 Health tablet 00:00: (one) time 00 each day. metoprolol 2021-0 Yes 50mg QD Take 50 mg U T succinate 6-19 by mouth 1 Heal th XL 00:00: (one) time (Toprol-XL) 00 each day. 50 MG 24 hr tablet ascorbic 2021-0 Yes 1000mg QD Take 1,000 U T acid 6-19 mg by Health (Vitamin C) 00:00: mouth 1 500 MG 00 (one) time tablet each day. cholecalcif 2021-0 Yes 1000U QD Take 1,000 UT akanksha 6-19 Units by Health (Vitamin 00:00: mouth 1 D-3) 25 MCG 00 (one) time (1000 UT) each day. tablet Methylcobal 2021-0 Yes 1000ug QD Chew 1,000 UT tobar 1 MG 6-19 mcg 1 Health chewable 00:00: (one) time tablet 00 each day. zinc 2021-0 Yes 50mg QD Take 50 mg UT gluconate 6-19 by mouth 1 Heal th 50 MG 00:00: (one) time tablet 00 each day. aspirin 81 1-0 Yes 81mg QD Take 81 mg U T MG EC 6-19 by mouth 1 Health tablet 00:00: (one) time 00 each day. furosemide 2021-0 Yes 40mg Take 40 mg U T (Lasix) 40 6-19 by mouth. Heal th MG tablet 00:00: 00 levothyroxi 2021-0 Yes 25ug QD Take 25 UT ne 6-19 mcg by Health (Synthroid, 00:00: mouth 1 Levoxyl) 25 00 (one) time MCG tablet each day. metoprolol 2021-0 Yes 50mg QD Take 50 mg U T succinate 6-19 by mouth 1 Heal th XL 00:00: (one) time (Toprol-XL) 00 each day. 50 MG 24 hr tablet ascorbic 1-0 Yes 1000mg QD Take 1,000 U T acid 6-19 mg by Health (Vitamin C) 00:00: mouth 1 500 MG 00 (one) time tablet each day. cholecalcif 1-0 Yes 1000U QD Take 1,000 UT akanksha 6-19 Units by Health (Vitamin 00:00: mouth 1 D-3) 25 MCG 00 (one) time (1000 UT) each day. tablet Methylcobal 1-0 Yes 1000ug QD Chew 1,000 UT tobar 1 MG 6-19 mcg 1 Health chewable 00:00: (one) time tablet 00 each day. zinc 2021-0 Yes 50mg QD Take 50 mg UT gluconate 6-19 by mouth 1 Heal th 50 MG 00:00: (one) time tablet 00 each day. aspirin 81 2021-0 Yes 81mg QD Take 81 mg U T MG EC 6-19 by mouth 1 Health tablet 00:00: (one) time 00 each day. furosemide 2021-0 Yes 40mg Take 40 mg U T (Lasix) 40 6-19 by mouth. Heal th MG tablet 00:00: 00 levothyroxi 2021-0 Yes 25ug QD Take 25 UT ne 6-19 mcg by Health (Synthroid, 00:00: mouth 1 Levoxyl) 25 00 (one) time MCG tablet each day. metoprolol 2021-0 Yes 50mg QD Take 50 mg U T succinate 6-19 by mouth 1 Heal th XL 00:00: (one) time (Toprol-XL) 00 each day. 50 MG 24 hr tablet ascorbic 2021-0 Yes 1000mg QD Take 1,000 U T acid 6-19 mg by Health (Vitamin C) 00:00: mouth 1 500 MG 00 (one) time tablet each day. cholecalcif 2021-0 Yes 1000U QD Take 1,000 UT akanksha 6-19 Units by Health (Vitamin 00:00: mouth 1 D-3) 25 MCG 00 (one) time (1000 UT) each day. tablet Methylcobal 2021-0 Yes 1000ug QD Chew 1,000 UT tobar 1 MG 6-19 mcg 1 Health chewable 00:00: (one) time tablet 00 each day. zinc 2021-0 Yes 50mg QD Take 50 mg UT gluconate 6-19 by mouth 1 Heal th 50 MG 00:00: (one) time tablet 00 each day. aspirin 81 2021-0 Yes 81mg QD Take 81 mg U T MG EC 6-19 by mouth 1 Health tablet 00:00: (one) time 00 each day. furosemide 2021-0 Yes 40mg Take 40 mg U T (Lasix) 40 6-19 by mouth. Heal th MG tablet 00:00: 00 levothyroxi 2021-0 Yes 25ug QD Take 25 UT ne 6-19 mcg by Health (Synthroid, 00:00: mouth 1 Levoxyl) 25 00 (one) time MCG tablet each day. metoprolol 2021-0 Yes 50mg QD Take 50 mg U T succinate 6-19 by mouth 1 Heal th XL 00:00: (one) time (Toprol-XL) 00 each day. 50 MG 24 hr tablet ascorbic 2021-0 Yes 1000mg QD Take 1,000 U T acid 6-19 mg by Health (Vitamin C) 00:00: mouth 1 500 MG 00 (one) time tablet each day. cholecalcif 2021-0 Yes 1000U QD Take 1,000 UT akanksha 6-19 Units by Health (Vitamin 00:00: mouth 1 D-3) 25 MCG 00 (one) time (1000 UT) each day. tablet Methylcobal 2021-0 Yes 1000ug QD Chew 1,000 UT tobar 1 MG 6-19 mcg 1 Health chewable 00:00: (one) time tablet 00 each day. zinc 2020-0 Yes 50mg QD Take 50 mg UT gluconate 6-19 by mouth 1 Heal th 50 MG 00:00: (one) time tablet 00 each day. aspirin 81 2020-0 Yes 81mg QD Take 81 mg U T MG EC 6-19 by mouth 1 Health tablet 00:00: (one) time 00 each day. furosemide 2020-0 Yes 40mg Take 40 mg U T (Lasix) 40 6-19 by mouth. Heal th MG tablet 00:00: 00 levothyroxi 2020-0 Yes 25ug QD Take 25 UT ne 6-19 mcg by Health (Synthroid, 00:00: mouth 1 Levoxyl) 25 00 (one) time MCG tablet each day. furosemide 2022- No 40mg Take 40 mg UT (Lasix) 40 6-19 02-23 by mouth. Hea lth MG tablet 00:00: 00:00 00 :00 levothyroxi 2020-2022- No 25ug QD Take 25 UT ne 6-19 02-23 mcg by Health (Synthroid, 00:00: 00:00 mouth 1 Levoxyl) 25 00 :00 (one) time MCG tablet each day. pravastatin 2020-2020- No 80mg QD Take 80 mg [facility] (PRAVACHOL) 6-18 06-[address] 40 MG 16:05: 00:00 daily. Hospita tablet 34 :00 l lisinopril 2020- No 40mg Q.5D Take 40 mg [facility] (PRINIVIL,Z 6-18 06-18 by mouth 2 s t ESTRIL) 40 15:58: 00:00 (two) Hospi ta mg tablet 07 :00 times a l day. pravastatin 2020-2020- No 80mg QD Take 80 mg [facility] (PRAVACHOL) 6-18 06-[address] 40 MG 11:05: 00:00 daily. Hospita tablet 34 :00 l lisinopril 2020-2020- No 40mg Q.5D Take 40 mg [facility] (PRINIVIL,Z 6-18 06-18 by mouth 2 s t ESTRIL) 40 10:58: 00:00 (two) Hospi ta mg tablet 07 :00 times a l day. amLODIPine 2021-0 Yes 5mg 5 mg. Univer s (NORVAS) 5 5-20 ity of mg tablet 11:47: Giulia Balderas MD [facility] [place] nitroglycer 2021-0 Yes .4mg 0.4 mg. Uni vers in 5-20 ity of (NITROSTAT) 11:47: Giulia 0.4 mg SL 19 tablet [facility] ([place] nitroglycer 2021-[address] 0.4 U T in 5-20 mg under Health (Nitrostat) 00:00: the 0.4 MG SL 00 tongue. tablet nitroglycer 2021-[address] 0.4 U T in 5-20 mg under Health (Nitrostat) 00:00: the 0.4 MG SL 00 tongue. tablet nitroglycer 2021-[address] 0.4 U T in 5-20 mg under Health (Nitrostat) 00:00: the 0.4 MG SL 00 tongue. tablet nitroglycer 2021-[address] 0.4 U T in 5-20 mg under Health (Nitrostat) 00:00: the 0.4 MG SL 00 tongue. tablet nitroglycer 2021-[address] 0.4 U T in 5-20 mg under Health (Nitrostat) 00:00: the 0.4 MG SL 00 tongue. tablet nitroglycer 2021-[address] 0.4 U T in 5-20 mg under Health (Nitrostat) 00:00: the 0.4 MG SL 00 tongue. tablet nitroglycer 2021-[address] 0.4 U T in 5-20 mg under Health (Nitrostat) 00:00: the 0.4 MG SL 00 tongue. tablet nitroglycer 2021-[address] 0.4 U T in 5-20 mg under Health (Nitrostat) 00:00: the 0.4 MG SL 00 tongue. tablet nitroglycer 2021-[address] 0.4 U T in 5-20 mg under Health (Nitrostat) 00:00: the 0.4 MG SL 00 tongue. tablet nitroglycer 2021-[address] 0.4 U T in 5-20 mg under Health (Nitrostat) 00:00: the 0.4 MG SL tongue. tablet nitroglycer Yes .4mg Place 0.4 U T in 5-20 mg under Health (Nitrostat) 00:00: the 0.4 MG SL tongue. tablet nitroglycer Yes .4mg Place 0.4 U T in 5-20 mg under Health (Nitrostat) 00:00: the 0.4 MG SL tongue. tablet mupirocin Yes Basal cell Apply U nivers (BACTROBAN) 06 carcinoma topically ity of 2% ointment 00:00: of skin of to [place] 00 right ear affected MD area(s) [facility] twice n daily[facility] Praluent 2019-10 Yes ONE [facility] Pen 75 1-28 INJECTION ity of mg/mL pnij 00:00: SUBCUTANEO [place] 00 USLY EVERY MD 2 WEEKS [facility] [place] pantoprazol 2019-10 Yes 40 mg = 1 M emoria e 40 mg 0-07 tab, PO, l oral 19:43: Daily, # [place] enteric 00 30 tab, 2 coated Refill(s), tablet Pharmacy: [facility] #[id number], 180.34, cm, 07/13/20 2:37:00 CDT, Height, 106.636, kg, 07/13/20 2:37:00 CDT, Weight Furosemide 2019-10 No Notes: Memor ia 40 MG Oral 0-07 (Same as: l Tablet 14:00: Lasix) May cause GI upset. Give with food or milk. Lasix 2019-10 No Notes: Memoria 0-06 (Same as: l 15:08: Lasix) MEDICATION WASTE Product Size: 40 mg Product Wasted: ___ mg Aspirin 325 2019-10 No Notes: Jaison leodan MG Oral 0-06 Take with l Tablet 14:00: food. Saline 2019-10 No Notes: Memoria Flush 0.9% 0-06 (Same as: l 14:00: BD Posiflush) Amlodipine 2019-10 No Notes: Memor ia 0-06 (Same as: l 14:00: Norvasc) apixaban 2019-10 No Notes: Memoria 0-06 Same as: l 14:00: Eliquis [place] 00 Aspirin 81 2019-10 No Notes: Memor ia MG Chewable 0-06 Take with l Tablet 14:00: food. Nexium 2019-10 No 40 mg, 1 Memoria 0-06 cap, l 14:00: Route: PO, Drug form: ECCAP, Daily, Dosing Weight 106.636, kg, Start date: 07/13/20 9:00:00 CDT, Duration: 30 day, Stop date: 08/11/20 9:00:00 TRY ON BASTER Furosemide 2019-10 No Notes: Memor ia 40 MG Oral 0-06 (Same as: l Tablet 14:00: Lasix) [place] 00 cause GI upset. Give with food or milk. Thyroxine 2019-10 No Notes: Memori a 0-06 Take 1 l 14:00: hour [place] 00 before or 2 hours after meal; Enteral feeds may interefere with the absorption of this medication . (Same as:Levothr oid) 24 HR 2019-10 No Notes: Memoria Metoprolol 0-06 (Same as: l Tartrate 50 14:00: Toprol XL) [place] MG Extended 00 May split Release tab, but Tablet do not [Toprol] crush. Flomax 2019-10 No Notes: Memoria 0-06 (Same As: l 14:00: Flomax) [place] 00 "Do Not Crush" Protonix 2019-10 No Notes: Memoria 0-06 Tablet l 14:00: should not be chewed or crushed. (Same as: Protonix) Tylenol 2019-10 No Notes: Do Memor ia 0-06 not exceed l 13:24: 4 gm/day. [place] 00 (Same as: Tylenol) influenza 2019-10 No Notes: Memori a virus 0-06 (Same as: l vaccine, 07:42: Fluzone Alcon n inactivated 59 High-Dose high-dose Quad) For preservativ 65 years e-free of age of intramuscul older (0.7 ar ml IM) suspension Shake well before use Enoxaparin 2019-10 No Notes: Memor ia 0-06 (Same as: l 07:00: Lovenox) [place] 00 Nitroglycer 2019-10 No Notes: Jaison leodan in 0-06 (Same l 06:16: as:Nitroqu ick, Nitrostat) "Do Not Crush" Sublingual tablet Morphine 2019-10 No 2 mg, 1 Memori a 0-06 mL, Route: l 06:16: IVP, Drug form: SOLN, Q15Min, Dosing Weight 102, kg, PRN Chest Pain, Start date: 07/13/20 1:16:00 CDT, Duration: 2 doses or times, Stop date: Limited # of times, 0 Ondansetron 2019-10 No Notes: Jaison leodan 0-06 (Same as: l 06:16: Zofran) Saline 2019-10 No Notes: Memoria Flush 0.9% 0-06 (Same as: l 06:16: BD Posiflush) amLODIPine 2020-0 Yes 5mg Q12H Take 5 mg UT (Norvasc) 5 8-24 by mouth Heal th MG tablet 00:00: every 12 00 (twelve) hours. amLODIPine 2020-0 Yes 5mg Q12H Take 5 mg UT (Norvasc) 5 8-24 by mouth Heal th MG tablet 00:00: every 12 00 (twelve) hours. amLODIPine 2020-0 Yes 5mg Q12H Take 5 mg UT (Norvasc) 5 8-24 by mouth Heal th MG tablet 00:00: every 12 00 (twelve) hours. amLODIPine 2020-0 Yes 5mg Q12H Take 5 mg UT (Norvasc) 5 8-24 by mouth Heal th MG tablet 00:00: every 12 00 (twelve) hours. amLODIPine 2020-0 Yes 10mg Q12H Take 10 mg U T (Norvasc) 5 8-24 by mouth Heal th MG tablet 00:00: every 12 00 (twelve) hours. amLODIPine 2020-0 Yes 10mg Q12H Take 10 mg U T (Norvasc) 5 8-24 by mouth Heal th MG tablet 00:00: every 12 00 (twelve) hours. amLODIPine 2020-0 Yes 10mg Q12H Take 10 mg U T (Norvasc) 5 8-24 by mouth Heal th MG tablet 00:00: every 12 00 (twelve) hours. amLODIPine 2020-0 2022- No 10mg Q12H Take 10 mg UT (Norvasc) 5 824 -23 by mouth Hea lth MG tablet 00:00: 00:00 every 12 00 :00 (twelve) hours. 1 ML 2019-0 Yes SUB-Q, 0 Memoria alirocumab 2-03 Refill(s) l 75 MG/ML 17:45: [place] Auto-Inject 00 or [Praluent] Furosemide 2019-0 Yes 40 mg = 1 Me moria 40 MG Oral 2-03 tab, PO, l Tablet 17:45: Daily, 0 [place] 00 Refill(s) Alirocumab 2018-0 Yes 75mg Q14D Inject 75 UT (Praluent) 8-22 mg under Healt h 75 MG/ML 00:00: the skin solution 00 every 14 auto-inject (fourteen) or days. apixaban 2018-0 Yes 2.5mg Q12H Take 2.5 UT (Eliquis) 8-22 mg by Health 2.5 MG 00:00: mouth tablet 00 every 12 (twelve) hours. Alirocumab 2018-0 Yes 75mg Q14D Inject 75 UT (Praluent) 8-22 mg under Healt h 75 MG/ML 00:00: the skin solution 00 every 14 auto-inject (fourteen) or days. apixaban 2018-0 Yes 2.5mg Q12H Take 2.5 UT (Eliquis) 8-22 mg by Health 2.5 MG 00:00: mouth tablet 00 every 12 (twelve) hours. Alirocumab 2019-0 Yes 75mg Q14D Inject 75 UT (Praluent) 8-22 mg under Healt h 75 MG/ML 00:00: the skin solution 00 every 14 auto-inject (fourteen) or days. apixaban 2019-0 Yes 2.5mg Q12H Take 2.5 UT (Eliquis) 8-22 mg by Health 2.5 MG 00:00: mouth tablet 00 every 12 (twelve) hours. Alirocumab 2019-0 Yes 75mg Q14D Inject 75 UT (Praluent) 8-22 mg under Healt h 75 MG/ML 00:00: the skin solution 00 every 14 auto-inject (fourteen) or days. apixaban 2019-0 Yes 2.5mg Q12H Take 2.5 UT (Eliquis) 8-22 mg by Health 2.5 MG 00:00: mouth tablet 00 every 12 (twelve) hours. Alirocumab 2019-0 Yes 75mg Q14D Inject 75 [facility] (Praluent) 8-22 mg under [facility] 75 MG/ML 00:00: the skin solution 00 every 14 auto-inject (fourteen) or days. apixaban 2019-0 Yes 2.5mg Q12H Take 2.5 [facility] (Eliquis) 8-22 mg by [facility] 2.5 MG 00:00: mouth tablet 00 every 12 (twelve) hours. Alirocumab 2019-0 Yes 75mg Q14D Inject 75 [facility] (Praluent) 8-22 mg under [facility] 75 MG/ML 00:00: the skin solution 00 every 14 auto-inject (fourteen) or days. apixaban 2019-0 Yes 2.5mg Q12H Take 2.5 [facility] (Eliquis) 8-22 mg by [facility] 2.5 MG 00:00: mouth tablet 00 every 12 (twelve) hours. Alirocumab 2019-0 Yes 75mg Q14D Inject 75 [facility] (Praluent) 8-22 mg under [facility] 75 MG/ML 00:00: the skin solution 00 every 14 auto-inject (fourteen) or days. apixaban 2019-0 Yes 2.5mg Q12H Take 2.5 [facility] (Eliquis) 8-22 mg by [facility] 2.5 MG 00:00: mouth tablet 00 every 12 (twelve) hours. Alirocumab 2019-0 Yes 75mg Q14D Inject 75 [facility] (Praluent) 8-22 mg under [facility] 75 MG/ML 00:00: the skin solution 00 every 14 auto-inject (fourteen) or days. apixaban 2019-0 Yes 2.5mg Q12H Take 2.5 [facility] (Eliquis) 8-22 mg by Health 2.5 MG 00:00: mouth tablet 00 every 12 (twelve) hours. Alirocumab 2019-0 Yes 75mg Q14D Inject 75 [facility] (Praluent) 8-22 mg under [facility] 75 MG/ML 00:00: the skin solution 00 every 14 auto-inject (fourteen) or days. apixaban 2019-0 Yes 2.5mg Q12H Take 2.5 [facility] (Eliquis) 8-22 mg by [facility] 2.5 MG 00:00: mouth tablet 00 every 12 (twelve) hours. Alirocumab 2019-0 Yes 75mg Q14D Inject 75 [facility] (Praluent) 8-22 mg under [facility] 75 MG/ML 00:00: the skin solution 00 every 14 auto-inject (fourteen) or days. apixaban 2019-0 Yes 2.5mg Q12H Take 2.5 [facility] (Eliquis) 8-22 mg by Health 2.5 MG 00:00: mouth tablet 00 every 12 (twelve) hours. Alirocumab 2019-0 Yes 75mg Q14D Inject 75 [facility] (Praluent) 8-22 mg [facility] 75 MG/ML 00:00: the skin solution 00 every 14 auto-inject (fourteen) or days. apixaban 2019-0 Yes 2.5mg Q12H Take 2.5 [facility] (Eliquis) 8-22 mg by Health 2.5 MG 00:00: mouth tablet 00 every 12 (twelve) hours. Alirocumab 2019-0 Yes 75mg Q14D Inject 75 [facility] (Praluent) 8-22 [facility] 75 MG/ML 00:00: the skin solution 00 every 14 auto-inject (fourteen) or days. apixaban 2019-0 Yes 2.5mg Q12H Take 2.5 [facility] (Eliquis) 8-22 mg by [facility] 2.5 MG 00:00: mouth tablet 00 every 12 (twelve) hours. Prednisone 2019-0 Yes 50 mg = 1 Me moria 50 MG Oral 8-05 tab, PO, l Tablet 19:19: Daily, X 5 [place] nn 00 day, # 5 tab, 0 Refill(s), Pharmacy: [facility][id number] ACTUAT 2019-0 Yes 2 puff, Jaison leodan Albuterol 805 INHALER, l 0.09 19:19: Q4H, PRN [place] MG/ACTUAT 00 wheezing, Metered coughing, Dose or Inhaler shortness [ProAir of breath, HFA] # 1 ea, 0 Refill(s), Pharmacy: [facility] #[id number] Albuterol 2019-0 No 3 mL, Memoria 0.833 MG/ML 8 Route: l / 18:44: NEB, [place] Ipratropium 00 Dosing [place] Weight 0.167 MG/ML 101.005, Inhalant kg, ONCE, Solution Start [DuoNeb] date: 05/12/19 13:44:00 CDT, Stop date: 05/12/19 13:44:00 CDT Albuterol No 2.49 mg, Jaison leodan 0.83 MG/ML 05-12 Route: l Inhalant 17:38: NEB, Drug Herm jose Solution 00 form: SOLN, ONCE, Dosing Weight 101.005, kg, Priority: STAT, Start date: 05/12/19 12:38:00 CDT, Stop date: 05/12/19 12:38:00 CDT Saline No 10 mL, Memoria Flush 0.9% 05-12 Route: l 17:38: IVP, Drug [place] Form: INJ, Dosing Weight 101.005, kg, PRN, PRN Line Flush, Start date: 05/12/19 12:38:00 CDT, Duration: 30 day, Stop date: 06/11/19 12:37:00 CDT Eliquis No Notes: Memoria 1-26 Same as: l 19:00: Eliquis metoprolol Yes 50 mg = 1 Me moria 50 mg oral 1-26 tab, PO, l tablet, 18:29: BID, # 60 [place] nn extended 00 tab, 0 release Refill(s), Pharmacy: [facility] #[id number] apixaban Yes 5 mg = 2 Memor ia 2.5 mg oral 1-26 tab, PO, l tablet 18:29: Q12H, # [place] 00 120 tab, 0 Refill(s), Pharmacy: [facility] #[id number] Potassium No Notes: Memori a Chloride -26 (Same as: l 18:04: Potassium Chloride) Aspirin 81 No Notes: Memor ia MG Chewable -26 Take with l Tablet 15:00: food. tamsulosin No Notes: Memor ia 1-26 (Same As: l 14:30: Flomax) "Do Not Crush" Nexium No 40 mg, Memoria - Route: PO, l 13:30: Before [place] 00 Breakfast, Dosing Weight 99.545, kg, Start date: 11/02/18 7:30:00 TRY ON BASTER, Duration: 30 day, Stop date: 12/01/18 7:30:00 TRY ON BASTER Protonix No Notes: Memoria 1-26 Tablet l 13:30: should not [place] 00 be chewed or crushed. (Same as: Protonix) Thyroxine No Notes: Memori a -26 Take 1 l 12:30: hour [place] 00 before or 2 hours after meal; Enteral feeds may interefere with the absorption of this medication . (Same as:Levothr oid) Tamsulosin Yes 0.4 mg = 1 M emoria hydrochlori 1-26 cap, PO, l de 0.4 MG 04:42: BID, # 30 [place] Oral 00 cap, 0 Capsule Refill(s) [Flomax] Pravastatin Yes 80 mg, PO, Memoria -26 Daily, # l 04:40: 30 tab, 0 [place] 00 Refill(s) telmisartan No 40 mg = 1 M emoria 40 mg oral 1-26 tab, PO, l tablet 04:38: BID, # 30 [place] n 00 tab, 0 Refill(s) amLODIPine Yes 5 mg = 1 Mem oria 5 mg oral 1-26 tab, PO, l tablet 04:35: BID, 0 [place] 00 Refill(s) metoprolol No 50 mg = 1 Me moria 50 mg oral 1-26 tab, PO, l tablet, 04:34: Bedtime, # Herm jose extended 00 30 tab, 1 release Refill(s) lisinopril No 40 mg = 1 Me moria 40 mg oral 1-26 tab, PO, l tablet 04:33: BID, # 90 [place] n 00 tab, 0 Refill(s) Pravastatin No Notes: Jaison leodan 11-02 (Same as: l 03:00: Pravachol) [place] 00 furosemide Yes [facility] (LASIX) 40 - ity of mg tablet 00:00: [place] 00 MD [facility] apixaban Yes [facility] (ELIQUIS) -26 ity of 2.5 mg 00:00: [place] [facility]-0 No 12.5 gm, Memor ia 50% Syringe 1-25 25 mL, l 23:58: Route: [place] IVP, Drug Form: INJ, Dosing Weight 99.545, kg, PRN, PRN Blood Glucose Results, Start date: 11/01/18 17:58:00 TRY ON BASTER, Duration: 30 day, Stop date: 12/01/18 17:57:00 TRY ON BASTER Glucagon 2018-0 No 1 mg, Memoria 11-01 Route: IM, l 23:58: Drug form: [place] PDR/INJ, PRN, Dosing Weight 99.545, kg, PRN Blood Glucose Results, Start date: 11/01/18 17:58:00 TRY ON BASTER, Duration: 30 day, Stop date: 12/01/18 17:57:00 TRY ON BASTER metoprolol 2018-0 No Notes: Memor ia -25 (Same as: l 23:02: Toprol XL) May split tab, but do not crush. heparin 2018-0 No 500 mL, Memoria additive - Rate: 23.8 l 25,000 unit 22:57: ml/hr, Herm jose [14 00 Infuse unit/kg/hr] over: 21 + Premix hr, Route: Diluent IV, Dosing Dextrose 5% Weight 85 500 mL kg, Total Volume: 500 mL, Start date: 11/01/18 16:57:00 TRY ON BASTER, Duration: 30 day, Stop date: 12/01/18 16:56:00 TRY ON BASTER, 2.07, m2 metoprolol 2018-0 No 50 mg, Memor ia extended 11-01 Route: PO, l release 22:55: Drug form: Herm jose ERTAB, BID, Priority: NOW, Start date: 11/01/18 16:55:00 TRY ON BASTER, Duration: 30 day, Stop date: 12/01/18 9:00:00 TRY ON BASTER Lasix 2018-0 No Notes: Memoria 1-25 (Same as: l 21:13: Lasix) MEDICATION WASTE Product Size: 40 mg Product Wasted: ___ mg Aspirin 2019-0 No 324 mg, Memoria 1-25 Route: l 19:37: CHEW, Drug form: CHEWTAB, ONCE, Dosing Weight 99.545, kg, Priority: STAT, Start date: 11/01/18 13:37:00 TRY ON BASTER, Stop date: 11/01/18 13:37:00 TRY ON BASTER Nitroglycer Yes 0.4 mg = 1 Memoria in 0.4 MG 1-25 tab, SL, l Sublingual 19:30: Q5Min, PRN H ermann Tablet 00 Chest pain, Give up to 3 doses. Call 911 if pain persists., # 100 tab, 0 Refill(s) amLODIPine No 5 mg = 1 Mem oria 5 mg oral 1-25 tab, PO, l tablet 19:29: Daily, 0 [place] 00 Refill(s) pravastatin No 80 mg = 1 M emoria 80 mg oral 1-25 tab, PO, l tablet 19:29: Bedtime, # [place] nn 00 90 tab, 0 Refill(s) Esomeprazol Yes 40 mg = 1 M emoria e 40 MG 1-25 cap, PO, l Enteric 19:29: Daily, 0 [place] Coated 00 Refill(s) Capsule [Nexium] lisinopril No 40 mg = 1 Me moria 40 mg oral 1-25 tab, PO, l tablet 19:28: Daily, # [place] 00 30 tab, 0 Refill(s) Aspirin 81 Yes 81 mg = 1 Me moria MG Chewable 1-25 tab, PO, l Tablet 19:28: Daily, [place] 00 tab, 0 Refill(s) tamsulosin No 0.4 mg = 1 M emoria 0.4 mg oral 1-25 cap, PO, l capsule 19:28: Daily, # [place] n 00 30 cap, 0 Refill(s) levothyroxi Yes 25 Memori a ne 25 mcg 1-25 microgram l (0.025 mg) 19:28: = 1 tab, [place] oral tablet 00 PO, Daily, # 90 tab, 0 Refill(s) metoprolol No 50 mg = 1 Me moria 50 mg oral 1-25 tab, PO, l tablet, 19:28: Daily, # [place] extended 00 90 tab, 0 release Refill(s) telmisartan No 40 mg = 1 M emoria 40 mg oral 1-25 tab, PO, l tablet 19:28: Daily, # [place] 00 30 tab, 0 Refill(s) Saline No Notes: Memoria Flush 0.9% 1-25 (Same as: l 19:24: BD [place] 00 Posiflush) tamsulosin Yes [facility] (FLOMAX) 6-25 ity of 0.4 mg 24 00:00: [place] hr capsule 00 [facility] levothyroxi Yes [facility]iver s ne 5-15 ity of (SYNTHROID) 00:00: [place] 25 mcg 00 tablet [facility] mirabegron Yes 25mg QD Take [facility] 5-04 tablet (25 Suzan kes 25 mg Tb24 00:00: mg total) Me dical ER tablet 00 by mouth Center daily Stop taking at least 24 hours prior to your catheter removal appointmen tErin mirabegron Yes 25mg QD Take [facility]MYR[facility] 5-04 tablet (25 Suzan kes 25 mg Tb24 00:00: mg total) Me dical ER tablet 00 by mouth Center daily Stop taking at least 24 hours prior to your catheter removal appointcassidy tErin mirabegron Yes 25mg QD Take 1 [facility] (MYRBETRIQ[facility] 5-04 tablet (25 Suzan kes 25 mg Tb24 00:00: mg total) Me dical ER tablet 00 by mouth Center daily Stop taking at least 24 hours prior to your catheter removal appointcassidy tErin amlodipine- Yes 1{tbl} Q.5D Take [address] [facility] [address] valsartan 5-02 tablet [facility] (EXFORGE) 16:38: mouth 2 Medic al 5-160 mg 08 (two) Center per tablet times daily . levothyroxi Yes 25ug Take [address] [facility] ne 5-02 mcg [facility] (SYNTHROID, 16:38: mouth Medic al LEVOTHROID) 08 Every Center 25 MCG morning on tablet an empty stomach. aspirin 81 2017- Yes 81mg QD Take [address] [facility] EC 5-02 by mouth [facility] tablet 16:38: nightly . Medica l 08 Center pravastatin 2018-0 Yes 80mg QD Take [address] [facility] (PRAVACHOL) 5-02 by mouth [facility] 80 MG 16:38: daily . Medical tablet 08 [place] mirabegron 2018-0 Yes QD Take by [facility] (MYRBETRIQ) 5-02 [facility] 25 mg Tb24 16:38: daily. Medic al ER tablet 08 [place] tamsulosin 2017-0 Yes .4mg Q.5D Take 0.[address] [facility] (FLOMAX) 5-02 mg [facility] 0.4 mg Cp24 16:38: mouth 2 Med ical 24 hr 08 (two) Center capsule times daily . ESOMEPRAZOL 2018-0 Yes 40mg QD Take [address] [facility] E MAGNESIUM 5-02 by mouth Luke [facility] (NEXIUM 16:38: daily . Medical ORAL) 08 [place] LISINOPRIL 2018-0 Yes 40mg Q.5D Take [address] ORAL 5-02 by mouth 2 [facility] 16:38: (two) Medical 08 times Center daily . metoprolol 2018-0 Yes 25mg QD Take [address] (TOPROL-XL) 5-02 by mouth Luke [facility] 25 MG 24 hr 16:38: daily . Med ical tablet 08 Center amlodipine- 2018-0 Yes 1{tbl} Q.5D Take [address] valsartan 5-02 tablet [facility] (EXFORGE) 16:38: mouth 2 Medic al 5-160 mg 08 (two) Center per tablet times daily . amlodipine- 2018-0 Yes 1{tbl} Q.5D Take [address] valsartan 5-02 tablet by [facility] (EXFORGE) 16:38: mouth 2 Medic al 5-160 mg 08 (two) Center per tablet times daily . levothyroxi 2018-0 Yes 25ug Take [address] [facility] ne 5-02 mcg by [facility] (SYNTHROID, 16:38: mouth Medic al LEVOTHROID) 08 Every Center 25 MCG morning on tablet an empty stomach. aspirin 81 2018-0 Yes 81mg QD Take [address] MG EC 5-02 by mouth [facility] tablet 16:38: nightly . Medica l 08 [place] pravastatin 2018-0 Yes 80mg QD Take [address] [facility] (PRAVACHOL) 5-02 by mouth Luke [facility] 80 MG 16:38: daily . Medical tablet 08 [place] mirabegron 2018-0 Yes QD Take by [facility] (MYRBETRIQ) 5-02 [facility] 25 mg Tb24 16:38: daily. Medic al ER tablet 08 [place] tamsulosin 2018-0 Yes .4mg Q.5D Take 0.[address] [facility] (FLOMAX) 5-02 mg by [facility] 0.4 mg Cp24 16:38: mouth 2 Med ical 24 hr 08 (two) Center capsule times daily . ESOMEPRAZOL 2018-0 Yes 40mg QD Take [address] [facility] E MAGNESIUM 5-02 by mouth Luke s (NEXIUM 16:38: daily . Medical ORAL) 08 [place] LISINOPRIL 2018-0 Yes 40mg Q.5D Take [address] ORAL 5-02 by mouth 2 [facility] 16:38: (two) Medical 08 times Center daily . metoprolol 2018-0 Yes 25mg QD Take [address] (TOPROL-XL) 5-02 by mouth Luke [facility] 25 MG 24 hr 16:38: daily . Med ical tablet 08 [place] levothyroxi 2017-0 Yes 25ug Take [address] [facility] [address] ne 5-02 mcg by [facility] (SYNTHROID, 16:38: mouth Medic al LEVOTHROID) 08 Every Center 25 MCG morning on tablet an empty stomach. aspirin 81 2018-0 Yes 81mg QD Take [address] MG EC 5-02 by mouth [facility] tablet 16:38: nightly . Medica l 08 [place] pravastatin 2018-0 Yes 80mg QD Take [address] [facility] [address] (PRAVACHOL) 5-02 by mouth Luke [facility] 80 MG 16:38: daily . Medical tablet 08 [place] mirabegron 2018-0 Yes QD Take by [facility] (MYRBETRIQ) 5-02 [facility] 25 mg Tb24 16:38: daily. Medic al ER tablet 08 [place] tamsulosin 2018-0 Yes .4mg Q.5D Take 0.[address] [facility] (FLOMAX) 5-02 mg by [facility] 0.4 mg Cp24 16:38: mouth 2 Med ical 24 hr 08 (two) Center capsule times daily . ESOMEPRAZOL 2018-0 Yes 40mg QD Take [address] [facility] E MAGNESIUM 5-02 by mouth Luke s (NEXIUM 16:38: daily . Medical ORAL) 08 [place] LISINOPRIL 2018-0 Yes 40mg Q.5D Take [address] ORAL 5-02 by mouth 2 [facility] 16:38: (two) Medical 08 times Center daily . metoprolol 0 Yes 25mg QD Take [address] (TOPROL-XL) 5-02 by mouth Luke s 25 MG 24 hr 16:38: daily . Med ical tablet 08 Center traMADol Yes 50mg Take [address] [facility] (ULTRAM) 50 5-02 tablet (50 Suzan kes mg tablet 00:00: mg total) Med ical 00 by mouth Center every 6 (six) hours as needed for Pain for up to 30 doses. Max Daily Amount: 200 mg traMADol 2017-0 Yes 50mg Take [address] [facility] (ULTRAM) 50 5-02 tablet (50 Suzan kes mg tablet 00:00: mg total) Med ical 00 by mouth Center every 6 (six) hours as needed for Pain for up to 30 doses. Max Daily Amount: 200 mg traMADol Yes 50mg Take [address] [facility] (ULTRAM) 50 5-02 tablet (50 Suzan kes mg tablet 00:00: mg total) Med ical 00 by mouth Center every 6 (six) hours as needed for Pain for up to 30 doses. Max Daily Amount: 200 mg Levofloxaci Yes 500 mg = 1 Memoria n 500 MG 1-02 tab, PO, l Oral Tablet 21:19: Q24H, X 10 [place] [Levaquin] 00 day, # 10 tab, 0 Refill(s) metoprolol 2015-0 Yes [facility] guerrero-hydrochl 5-15 ity of orothiaz 00:00: [place] 50-12.5 mg 00 Tb24 [facility] aspirin 81 2014-0 Yes [facility] mg EC 5-15 ity of tablet 00:00: [place] [address] [facility] esomeprazol 2013-0 Yes Univer s e (NexIUM) 5-15 ity of 40 MG 00:00: [place] capsule 00 [facility] Immunizations Ordered Immunization Filled Immunization Date Status Commen ts Source Name Name Influenza, injectable, 2022-07-[address] [facility] quadrivalent 00:00:00 Pneumococcal Conjugate 2022-07-[address] [facility] PCV 20 00:00:00 Influenza, injectable, 2022-07-13 [address] [facility] quadrivalent 00:00:00 Pneumococcal Conjugate 2022-07-13 Completed [facility] PCV 20 00:00:00 Influenza, injectable, 2022-07-13 Completed [facility] quadrivalent 00:00:00 Pneumococcal Conjugate 2022-07-13 Completed [facility] PCV 20 00:00:00 Influenza, injectable, 2022-07-13 Completed [facility] quadrivalent 00:00:00 Pneumococcal Conjugate 2022-07-13 Completed [facility] PCV 20 00:00:00 Influenza, injectable, 2022-07-13 Completed [facility] quadrivalent 00:00:00 Pneumococcal Conjugate 2022-07-13 Completed [facility] PCV 20 00:00:00 Influenza, injectable, 2022-07-13 Completed [facility] quadrivalent 00:00:00 Pneumococcal Conjugate 2022-07-13 Completed [facility] PCV 20 00:00:00 Influenza, seasonal, 2021-07-08 [facility] inject[facility]:00 Influenza, seasonal, 2021-07-08 [facility] inject[facility] 00:00:00 Influenza, seasonal, 2021-07-08 [facility] injectable 00:00:00 Influenza, seasonal, 2021-07-08 [facility] inject[facility] 00:00:00 Influenza, seasonal, 2021-07-08 [facility] inject[facility] 00:00:00 Influenza, seasonal, 2021-07-08 [facility] inject[facility] 00:00:00 Influenza, seasonal, 2021-07-08 [facility] inject[facility] 00:00:00 Influenza, seasonal, 2021-07-08 [facility] inject[facility] 00:00:00 Influenza, seasonal, 2021-07-08 [facility] inject[facility] 00:00:00 Influenza, seasonal, 2021-07-08 [facility] inject[facility] 00:00:00 Influenza, seasonal, 2021-07-08 [facility] inject[facility] 00:00:00 Influenza, seasonal, 2021-07-08 [facility] 00:00:00 COVID-19 Moderna 18 & 2020-10-29 Completed [facility] Over Vaccination 00:00:00 COVID-19 Moderna 18 & 2020-10-29 Completed [facility] Over Vaccination 00:00:00 COVID-19 Moderna 18 & 2020-10-29 Completed [facility] Over Vaccination 00:00:00 COVID-19 Moderna 12 & 2020-10-29 Completed [facility] Vaccination (RED 00:00:00 CAP) COVID-19 Moderna 12 & 2020-10-29 Completed [facility] Over Vaccination (RED 00:00:00 CAP) COVID-19 Moderna 12 & 2020-10-29 Completed [facility] Over Vaccination (RED 00:00:00 CAP) COVID-19 Moderna 12 & 2020-10-29 Completed [facility] Over Vaccination (RED 00:00:00 CAP) COVID-19 Moderna 12 & 2020-10-29 Completed [facility] Over Vaccination (RED 00:00:00 CAP) COVID-19 Moderna 12 & 2020-10-29 Completed [facility] Over Vaccination (RED 00:00:00 CAP) COVID-19 Moderna 12 & 2020-10-29 Completed [facility] Vaccination (RED 00:00:00 CAP) COVID-19 Moderna 2020-10-29 [facility] 00:00:00 COVID-19 Moderna 2020-10-29 [facility]red) 00:00:00 Influenza, High Dose 2019-07-09 [facility] (fluzone) 00:00:00 Influenza, High Dose 2019-07-09 [facility] (fluzone) 00:00:00 Influenza, High Dose 2019-07-09 [facility] (fluzone) 00:00:00 Influenza, High Dose 2019-07-09 [facility] (fluzone) 00:00:00 Influenza, High Dose 2019-07-09 [facility] (fluzone) 00:00:00 Influenza, seasonal, 2019-07-01 [facility] injectable 00:00:00 Influenza, seasonal, 2019-07-01 [facility] injectable 00:00:00 Influenza, seasonal, 2019-07-01 [facility] injectable 00:00:00 Influenza, seasonal, 2019-07-01 [facility] injectable 00:00:00 Influenza, seasonal, 2019-07-01 [facility] 00:00:00 Influenza, seasonal, 2019-07-01 [facility] 00:00:00 Influenza, seasonal, 2019-07-01 [facility] 00:00:00 Influenza, seasonal, 2019-07-01 [facility] 00:00:00 Influenza, seasonal, 2019-07-01 [facility] 00:00:00 Influenza, seasonal, 2019-07-01 [facility] 00:00:00 Influenza, seasonal, 2019-07-01 [facility] 00:00:00 Influenza, seasonal, 2019-07-01 [facility] 00:[facility]:00 Zoster, Recombinant 2018-10-27 [facility] Zoster, Recombinant 2018-10-27 [facility]00 Zoster, Recombinant 2018-10-27 [facility]:00 Zoster, Recombinant 2018-10-27 [facility]:00 Zoster, Recombinant 2018-10-27 [facility]:00 Zoster, Recombinant 2018-10-27 [facility]:00 Zoster, Recombinant 2018-10-27 [facility]:00 Zoster, Recombinant 2018-10-27 [facility]:00 Zoster, Recombinant 2018-10-27 [facility]:00 Zoster, Recombinant 2018-10-27 [facility]:00 Zoster, Recombinant 2018-10-27 [facility]:00 Zoster, Recombinant 2018-10-27 [facility] Influenza, High Dose 2018-07-28 [facility]fluzone[facility] 00:00:00 Influenza, High Dose 2018-07-28 [facility] (fluzone) 00:00:00 Influenza, High Dose 2018-07-28 [facility] (fluzone) 00:00:00 Influenza, High Dose 2018-07-28 [facility] (fluzone) 00:00:00 Influenza, High Dose 2018-07-28 [facility] (fluzone) 00:00:00 Influenza, High Dose 2017-07-29 [facility]pleted [facility] (fluzone) 00:00:00 Influenza, High Dose 2017-07-29 [facility] (fluzone) 00:00:00 Influenza, High Dose 2017-07-29 [facility] (fluzone) 00:00:00 Influenza, High Dose 2017-07-29 [facility] (fluzone) 00:00:00 Influenza, High Dose 2017-07-29 [facility] (fluzone) 00:00:00 DTaP 2017-04-06 Completed [facility] 00:00:00 DTaP 2017-04-06 Completed [facility] 00:00:00 DTaP 2017-04-06 Completed [facility] 00:00:00 DTaP 2017-04-06 [facility]pleted [facility] 00:00:00 DTaP 2017-04-06 [facility]pleted [facility] 00:00:00 DTaP 2017-04-06 [facility]pleted [facility] 00:00:00 DTaP 2017-04-06 [facility]pleted [facility] 00:00:00 DTaP 2017-04-06 [facility]pleted [facility] 00:00:00 DTaP 2017-04-06 [facility]pleted [facility] 00:00:00 DTaP 2017-04-06 [facility]pleted [facility] 00:00:00 DTaP 2017-04-06 [facility]pleted [facility] 00:00:00 DTaP 2017-04-06 [facility]pleted [facility] 00:00:00 Tdap 2016-12-01 Completed [facility] 00:00:00 Tdap 2016-12-01 Completed [facility] 00:00:00 Tdap 2016-12-01 Completed [facility] 00:00:00 Tdap 2016-12-01 [facility]pleted [facility] 00:00:00 Tdap 2016-12-01 [facility]pleted [facility] 00:00:00 Tdap 2016-12-01 [facility]pleted [facility] 00:00:00 Tdap 2016-12-01 [facility]pleted [facility] 00:00:00 Tdap 2016-12-01 [facility]pleted [facility] 00:00:00 Tdap 2016-12-01 [facility]pleted [facility] 00:00:00 Tdap 2016-12-01 [facility]pleted [facility] 00:00:00 Tdap 2016-12-01 [facility] 00:00:00 Tdap 2016-12-01 [facility] 00:00:00 Influenza, seasonal, 2016-07-22 [facility] 00:00:00 Influenza, seasonal, 2016-07-22 [facility] 00:00:00 Influenza, seasonal, 2016-07-22 [facility] 00:00:00 Influenza, seasonal, 2016-07-22 [facility] 00:00:00 Influenza, seasonal, 2016-07-22 [facility] 00:00:00 Influenza, seasonal, 2016-07-22 [facility] 00:00:00 Influenza, seasonal, 2016-07-22 [facility] 00:00:00 Influenza, seasonal, 2016-07-22 [facility] 00:00:00 Influenza, seasonal, 2016-07-22 [facility] 00:00:00 Influenza, seasonal, 2016-07-22 [facility] 00:00:00 Influenza, seasonal, 2016-07-22 [facility] 00:00:00 Influenza, seasonal, 2016-07-22 [facility] 00:00:00 Pneumococcal Conjugate 2016-07-20 Completed [facility] PCV 13 00:00:00 Pneumococcal Conjugate 2016-07-20 Completed [facility] PCV 13 00:00:00 Pneumococcal Conjugate 2016-07-20 Completed [facility] PCV 13 00:00:00 Pneumococcal Conjugate 2016-07-20 Completed [facility] PCV 13 00:00:00 Pneumococcal Conjugate 2016-07-20 Completed [facility] PCV 13 00:00:00 Pneumococcal Conjugate 2016-07-20 Completed [facility] PCV 13 00:00:00 Pneumococcal Conjugate 2016-07-20 Completed [facility] PCV 13 00:00:00 Pneumococcal Conjugate 2016-07-20 Completed [facility] PCV 13 00:00:00 Influenza, High Dose 2016-07-20 [facility] (fluzone) 00:00:00 Pneumococcal Conjugate 2016-07-20 Completed [facility] PCV 13 00:00:00 Influenza, High Dose 2016-07-20 [facility] (fluzone) 00:00:00 Pneumococcal Conjugate 2016-07-20 Completed [facility] PCV 13 00:00:00 Influenza, High Dose 2016-07-20 [facility] (fluzone) 00:00:00 Pneumococcal Conjugate 2016-07-20 Completed [facility] PCV 13 00:00:00 Influenza, High Dose 2016-07-20 [facility] (fluzone) 00:00:00 Pneumococcal Conjugate 2016-07-20 Completed [facility] PCV 13 00:00:00 Influenza, High Dose 2016-07-20 [facility] (fluzone) 00:00:00 Influenza, seasonal, 2013-08-06 [facility]pleted [facility] inject[facility] 00:00:00 Influenza, seasonal, 2013-08-06 [facility]pleted [facility] 00:00:00 Influenza, seasonal, 2013-08-06 [facility]pleted [facility] 00:00:00 Influenza, seasonal, 2013-08-06 [facility]pleted [facility] 00:00:00 Influenza, seasonal, 2013-08-06 [facility]pleted [facility] 00:00:00 Influenza, seasonal, 2013-08-06 [facility]pleted [facility] 00:00:00 Influenza, seasonal, 2013-08-06 [facility]pleted [facility] 00:00:00 Influenza, seasonal, 2013-08-06 [facility]pleted [facility] 00:00:00 Influenza, seasonal, 2013-08-06 [facility]pleted [facility] 00:00:00 Influenza, seasonal, 2013-08-06 [facility]pleted [facility] 00:00:00 Influenza, seasonal, 2013-08-06 [facility]pleted [facility] 00:00:00 Influenza, seasonal, 2013-08-06 [facility]pleted [facility] 00:00:00 Influenza, seasonal, 2008-07-29 Completed [facility] 00:00:00 Influenza, seasonal, 2008-07-29 [facility]pleted [facility] 00:00:00 Influenza, seasonal, 2008-07-29 [facility]pleted [facility] 00:00:00 Influenza, seasonal, 2008-07-29 [facility]pleted [facility] 00:00:00 Influenza, seasonal, 2008-07-29 [facility]pleted [facility] 00:00:00 Influenza, seasonal, 2008-07-29 [facility]pleted [facility] 00:00:00 Influenza, seasonal, 2008-07-29 [facility]pleted [facility] 00:00:00 Influenza, seasonal, 2008-07-29 [facility]pleted [facility] 00:00:00 Influenza, seasonal, 2008-07-29 [facility]pleted [facility] 00:00:00 Influenza, seasonal, 2008-07-29 Completed [facility] 00:00:00 Influenza, seasonal, 2008-07-29 Completed [facility] 00:00:00 Influenza, seasonal, 2008-07-29 Completed [facility] 00:00:00 Influenza, seasonal, 2007-10-31 Completed [facility] 00:00:00 Influenza, seasonal, 2007-10-31 Completed [facility] 00:00:00 Influenza, seasonal, 2007-10-31 Completed [facility] 00:00:00 Influenza, seasonal, 2007-10-31 Completed [facility] 00:00:00 Influenza, seasonal, 2007-10-31 Completed [facility] 00:00:00 Influenza, seasonal, 2007-10-31 Completed [facility] 00:00:00 Influenza, seasonal, 2007-10-31 Completed [facility] 00:00:00 Influenza, seasonal, 2007-10-31 Completed [facility] 00:00:00 Influenza, seasonal, 2007-10-31 Completed [facility] 00:00:00 Influenza, seasonal, 2007-10-31 [facility]:00 Influenza, seasonal, 2007-10-31 [facility] 00:00:00 Influenza, seasonal, 2007-10-31 [facility] 00:[facility]:00 Vital Signs Vital Name Observation Time Observation Value Comments Source Systolic blood 2022-06-01 18:46:00 130 mm[Hg] [facility] Diastolic blood 2022-06-01 18:46:00 76 mm[Hg] [facility] Heart rate 2022-06-01 18:45:00 60 /min [facility] Body temperature 2022-06-01 18:45:00 36.11 Kelly [facility] Body height 2022-06-01 18:45:00 [facility] 2022-06-01 18:45:00 100.699 [facility] BMI 2022-06-01 18:45:00 30.96 kg/m2 [facility] Systolic blood 2023-02-09 18:34:00 134 mm[Hg] [facility] pressure Diastolic blood 2023-02-09 18:34:00 69 mm[Hg] [facility] Heart rate 2023-02-09 18:34:00 61 /min [facility] Body temperature 2023-02-09 18:34:00 36.72 [facility] Body height 2023-02-09 18:34:00 180.3 cm [facility] Body weight 2023-02-09 18:34:00 100.699 [facility] BMI 2023-02-09 18:34:00 30.96 kg/m2 [facility] Body height 2023-01-18 20:13:00 180.3 cm [facility] Body weight 2023-01-18 20:13:00 102.059 kg [facility] BMI 2023-01-18 20:13:00 31.38 kg/m2 [facility] Systolic blood 2022-11-30 20:34:00 158 mm[Hg] [facility] pressure Diastolic blood 2022-11-30 20:34:00 83 mm[Hg] [facility] Heart rate 2022-11-30 20:34:00 87 /min [facility] Body temperature 2022-11-30 20:34:00 36.39 [facility] Body height 2022-11-30 20:34:00 180.3 cm [facility] Body weight 2022-11-30 20:34:00 102.059 kg [facility] BMI 2022-11-30 20:34:00 31.38 kg/m2 [facility] Systolic blood 2022-10-11 19:07:00 133 mm[Hg] [facility] pressure Diastolic blood 2022-10-11 19:07:00 88 mm[Hg] [facility] pressure Heart rate 2022-10-11 19:07:00 81 /min [facility] Body temperature 2022-10-11 19:07:00 36.5 [facility] Respiratory rate 2022-10-11 19:07:00 16 /min [facility] Body height 2022-10-11 19:07:00 180.3 cm [facility] Body weight 2022-10-11 19:07:00 99.791 [facility] BMI 2022-10-11 19:07:00 30.68 kg/m2 [facility] Oxygen saturation in 2022-10-11 19:07:00 98 /min [facility] Arterial blood by Pulse oximetry Systolic blood 2022-06-01 18:46:00 130 mm[Hg] [facility] Diastolic blood 2022-06-01 18:46:00 76 mm[Hg] [facility] pressure Heart rate 2022-06-01 18:45:00 60 /min [facility] Body temperature 2022-06-01 18:45:00 36.11 Kelly [facility] Body height 2022-06-01 18:45:00 180.3 cm [facility] Body weight 2022-06-01 18:45:00 100.699 [facility] BMI 2022-06-01 18:45:00 30.96 kg/m2 [facility] Systolic blood 2022-04-19 19:01:00 152 mm[Hg] [facility] pressure Diastolic blood 2022-04-19 19:01:00 89 mm[Hg] [facility] pressure Heart rate 2022-04-19 19:01:00 66 /min [facility] Body temperature 2022-04-19 19:01:00 36.33 [facility] Body height 2022-04-19 19:01:00 180.3 cm [facility] Body weight 2022-04-19 19:01:00 102.57 kg [facility] BMI 2022-04-19 19:01:00 31.54 kg/m2 [facility] Oxygen saturation in 2022-04-19 19:01:00 94 /min [facility] Arterial blood by Pulse oximetry Systolic blood 2021-12-14 20:10:00 157 mm[Hg] [facility] pressure Diastolic blood 2021-12-14 20:10:00 85 mm[Hg] [facility] pressure Heart rate 2021-12-14 20:10:00 68 /min [facility] Body temperature 2021-12-14 20:10:00 35.72 Kelly [facility] Respiratory rate 2021-12-14 20:10:00 16 /min [facility] Body height 2021-12-14 20:10:00 180.3 cm [facility] Body weight 2021-12-14 20:10:00 102.513 kg [facility] BMI 2021-12-14 20:10:00 31.52 kg/m2 [facility] Oxygen saturation in 2021-12-14 20:10:00 98 /min [facility] Arterial blood by Pulse oximetry Systolic blood 2021-12-01 19:00:00 131 mm[Hg] [facility] pressure Diastolic blood 2021-12-01 19:00:00 96 mm[Hg] [facility] pressure Heart rate 2021-12-01 19:00:00 94 /min [facility] Body temperature 2021-12-01 19:00:00 36.44 [facility] Body height 2021-12-01 19:00:00 180.3 cm [facility] Body weight 2021-12-01 19:00:00 101.606 kg [facility] BMI 2021-12-01 19:00:00 31.24 kg/m2 [facility] Systolic blood 2021-03-26 17:22:19 139 mm[Hg] [facility] pressure Diastolic blood 2021-03-26 17:22:19 83 mm[Hg] [facility] pressure Heart rate 2021-03-26 17:22:19 92 /min [facility] Body temperature 2021-03-26 17:22:19 36.06 Kelly [facility] Respiratory rate 2021-03-26 17:22:19 20 /min [facility] Oxygen saturation in 2021-03-26 17:22:19 98 /min [facility] Arterial blood by Pulse oximetry Body weight 2021-03-26 10:00:00 101.787 kg [facility] BMI 2021-03-26 10:00:00 31.30 kg/m2 [facility] Body height 2021-03-25 15:41:00 180.3 cm [facility] Temperature Oral (F) 2020-07-14 17:00:00 97.9 F [facility] Heart Rate 2020-07-14 17:00:00 [facility] [place] Respitory Rate 2020-07-14 17:00:00 Samara Humphreys Systolic (mm Hg) 2020-07-14 17:00:00 Jaison [facility] [place] Diastolic (mm Hg) 2020-07-14 17:00:00 [facility] Temperature Oral (F) 2020-07-14 13:00:00 98.3 F [facility] Heart Rate 2020-07-14 13:00:00 [facility] Respitory Rate 2020-07-14 13:00:00 [facility] [place] Systolic (mm Hg) 2020-07-14 13:00:00 Jaison [facility] Diastolic (mm Hg) 2020-07-14 13:00:00 [facility] Respitory Rate 2020-07-14 12:11:00 [facility] [place] Temperature Oral (F) 2020-07-14 09:00:00 97.8 F [facility] Heart Rate 2020-07-14 09:00:00 [facility] Systolic (mm Hg) 2020-07-14 09:00:00 Jaison [facility] Diastolic (mm Hg) 2020-07-14 09:00:00 [facility] Height 2020-07-13 07:37:00 180.34 cm [facility] [place] Weight 2020-07-13 07:37:00 [facility] BMI Calculated 2020-07-13 07:37:00 [facility] Temperature Oral (F) 2019-11-10 18:40:00 98.6 F [facility] Heart Rate 2019-11-10 18:40:00 [facility] [place] Respitory Rate 2019-11-10 18:40:00 [facility] Systolic (mm Hg) 2019-11-10 18:40:00 Jaison [facility] Diastolic (mm Hg) 2019-11-10 18:40:00 [facility] Systolic (mm Hg) 2019-11-10 16:35:00 Jaison [facility] Diastolic (mm Hg) 2019-11-10 16:35:00 [facility] Heart Rate 2019-11-10 16:35:00 [facility] [place] Respitory Rate 2019-11-10 16:35:00 [facility] Temperature Oral (F) 2019-11-10 16:35:00 98.0 F [facility] [place] Weight 2019-11-10 16:35:00 [facility] [place] Systolic (mm Hg) 2019-05-12 19:28:00 Jaison [place] Diastolic (mm Hg) 2019-05-12 19:28:00 [facility] Respitory Rate 2019-05-12 19:28:00 [facility] [place] Heart Rate 2019-05-12 19:28:00 [facility] Temperature Oral (F) 2019-05-12 19:28:00 98.3 F [facility] Respitory Rate 2019-05-12 18:48:00 [facility] [place] Systolic (mm Hg) 2019-05-12 18:48:00 [facility]ison [facility] Diastolic (mm Hg) 2019-05-12 18:48:00 [facility] [place] Heart Rate 2019-05-12 18:48:00 [facility] Weight 2019-05-12 17:31:00 [facility] Temperature Oral (F) 2019-05-12 17:31:00 98.2 F [facility] [place] Heart Rate 2019-05-12 17:31:00 [facility] Respitory Rate 2019-05-12 17:31:00 [facility] [place] Systolic (mm Hg) 2019-05-12 17:31:00 Jaison [place] Diastolic (mm Hg) 2019-05-12 17:31:00 [facility] [place] Temperature Oral (F) 2018-11-02 17:49:00 98.0 F [facility] [place] Heart Rate 2018-11-02 17:49:00 [facility] [place] Respitory Rate 2018-11-02 17:49:00 [facility] Systolic (mm Hg) 2018-11-02 17:49:00 [facility] Diastolic (mm Hg) 2018-11-02 17:49:00 [facility] Temperature Oral (F) 2018-11-02 13:56:00 98.7 F [facility] [place] Heart Rate 2018-11-02 13:56:00 [facility] Respitory Rate 2018-11-02 13:56:00 [facility] [place] Systolic (mm Hg) 2018-11-02 13:56:00 Jaison [place] Diastolic (mm Hg) 2018-11-02 13:56:00 [facility] Temperature Oral (F) 2018-11-02 10:33:00 99.8 F [facility] [place] Heart Rate 2018-11-02 10:33:00 [facility] [place] Respitory Rate 2018-11-02 10:33:00 [facility] [place] Systolic (mm Hg) 2018-11-02 10:33:00 Jaison [place] Diastolic (mm Hg) 2018-11-02 10:33:00 [facility] [place] Height 2018-11-02 04:21:00 180.34 cm [facility] Weight 2018-11-02 04:21:00 [facility] [place] BMI Calculated 2018-11-02 04:21:00 [facility] BMI Calculated 2018-11-01 19:20:00 [facility] [place] Weight 2018-11-01 19:20:00 [facility] Height 2018-11-01 19:20:00 180.34 cm [facility] Respitory Rate 2017-10-09 21:32:00 [facility] Systolic (mm Hg) 2017-10-09 21:32:00 [place] Diastolic (mm Hg) 2017-10-09 21:32:00 [facility] Temperature Oral (F) 2017-10-09 21:32:00 98.4 F [facility] Heart Rate 2017-10-09 21:32:00 [facility] [place] BMI Calculated 2017-10-09 18:45:00 [facility] Height 2017-10-09 18:45:00 182.88 cm [facility] Weight 2017-10-09 18:45:00 [facility] Temperature Oral (F) 2017-10-09 18:45:00 98.5 F [facility] [place] Heart Rate 2017-10-09 18:45:00 [facility] Respitory Rate 2017-10-09 18:45:00 [facility] Systolic (mm Hg) 2017-10-09 18:45:00 [place] Diastolic (mm Hg) 2017-10-09 18:45:00 [facility] [place] Procedures Procedure Date / Time Performing Clinician Source Performed IN ARTHROCENTESIS ASP/INJ 2023-01-18 19:45:[address] [facility] MAJOR JOINT/BURSA W/OUT US BASIC METABOLIC PANEL 2021-03-26 09:33:00 NorcaturAbhay [facility] ESTIMATED GFR 2021-03-26 09:33:00 [facility] XR CHEST 1 VW PORTABLE 2021-03-25 20:10:24 NorcaturAbhay [facility] ECG PRE/POST OP 2021-03-25 19:27:16 [facility] EP PACEMAKER INSERTION 2021-03-25 19:14:03 [facility] NEW OR REPLACEMENT ECG 12-LEAD 2021-03-25 15:18:28 [facility] COVID-19 QUALITATIVE 2021-03-21 20:52:00 [facility] RT-PCR HC COMPLETE BLD COUNT 2021-03-21 20:52:00 [facility] W/AUTO DIFF BASIC METABOLIC PANEL 2021-03-21 20:52:00 [facility] ESTIMATED GFR 2021-03-21 20:52:00 [facility] Hernia repair<sup>1</sup> [facility] [place] Stent [facility] placement<sup>2</sup> Plan of Care Planned Activity Planned Date Details Comments Source Future Scheduled 2023-02-26 COVID-19 VACCINE (#1) [facility] Test 21:32:17 [code = COVID-19 VACCINE (#1)] Future Scheduled 2023-02-26 65+ PNEUMOCOCCAL [facility] Test 21:32:17 VACCINE (1 - PCV) [code = 65+ PNEUMOCOCCAL VACCINE (1 - PCV)] Future Scheduled 2023-02-26 SHINGLES VACCINES (1 Met [facility] Test 21:32:17 of 2) [code = SHINGLES VACCINES (1 of 2)] Future Scheduled 2023-02-26 INFLUENZA VACCINE [facility] Test 21:32:17 [code = INFLUENZA VACCINE] Future Scheduled 2022 COVID-19 Vaccination [facility] Test 06:09:06 (#1) [code = COVID-19 [facility] Vaccination (#1)] Center Future Scheduled 2021-11-08 COVID-19 VACCINE (1) Met [facility] Test 16:39:26 [code = COVID-19 VACCINE (1)] Future Scheduled 2021-11-08 65+ PNEUMOCOCCAL [facility] Test 16:39:26 VACCINE (1 of 2 - PPSV23) [code = 65+ PNEUMOCOCCAL VACCINE (1 of 2 - PPSV23)] Future Scheduled 2021-11-08 [facility] 16:39:26 (#1) [code = SHINGLES VACCINES (#1)] Future Scheduled 2021-11-08 [facility] Test 16:39:26 [code = INFLUENZA VACCINE] Future Scheduled 65+ [facility]OCOCCAL [facility] Test VACCINE (1 of 2 - PPSV23) [code = 65+ PNEUMOCOCCAL VACCINE (1 of 2 - PPSV23)] Future Scheduled COVID-19 VACCINE (1) Met [facility] Test [code = COVID-19 VACCINE (1)] Future Scheduled [facility]IN[facility] (#1) [code = SHINGLES VACCINES (#1)] Future Scheduled [facility]ZA [facility] Test [code = INFLUENZA VACCINE] Encounters Start End Encounter Admission Attending Care Care Encounter Source Date/Time Date/Time Type Type Clinicians Facility Department ID 2023-02-23 Outpatient [facility] [id number] [place] 14:35:13 [id number] [facility] 2023-02-09 Outpatient [facility] [id number] [place] 13:12:20 [id number] [facility] 2023-01-18 Outpatient [facility] [id number] [place] 15:15:51 [id number] [facility] 2022-12-25 Outpatient [facility] [id number] [place] 11:31:56 [id number] [facility] 2022-12-04 Outpatient [facility] [id number] [place] 11:45:35 [id number] [facility] 2022-11-24 Outpatient [facility] [id number] [place] 00:28:20 [id number] [facility] 2022-11-23 Outpatient [facility] [id number] [place] 16:00:11 [id number] [facility] 2022-10-23 Outpatient [facility] [id number] [place] 11:55:20 [id number] [facility] 2021-12-01 Outpatient EDITH, [facility] [id number] [place] 14:02:31 [facility] 2021-07-18 Outpatient SAMM, [facility] [id number] [place] 10:44:06 [facility] 2021-04-20 Outpatient PEDRO, [facility] [id number] [place] 14:48:00 [facility] 2020-08-02 Outpatient SYSTEM, [facility] ROSA ISELA [id number] 08:09:27 PROVIDER Joao jurado 2019-01-14 Outpatient [facility] PUL [id number] [facility] 11:30:35 2023-10-17 2023-10-17 Outpatient PEDRO, [facility] [id number] [place] 13:00:00 [facility]:00:[facility]-07[facility]02 2023-07-02 Outpatient SAMM, [facility] [id number] [place] 10:00:00 [facility] 2023-05-28 Outpatient EDITH, [facility] [id number] [place] 10:30:00 10:30:00 [facility] 2023-05-18 2023-05-18 Outpatient KAUR, [facility] [id number] [place] 13:45:00 13:45:00 [facility] 2023-05-10 2023-05-10 Outpatient KU, [facility] [id number] [place] 15:00:00 [facility]:00[facility] 2023-02-23 Office JAMISON Ku [facility] [id number] [place] 13:30:00 14:35:37 Visit Vasquez [id number] [facility] 9.2.7.2.686 [address] 5 [id number] 5 2023-02-09 2023-02-09 Office JAMISON Kaur 6400 1.2.840.114 [id number] [place] 14:00:00 15:13:23 Visit [facility] [id number] Health 9.2.7.2.686 [id number] 2023-01-18 2023-01-18 Outpatient [facility] [id number] [place] 07:00:00 15:50:58 Health 2023-01-18 2023-01-18 Office JAMISON KU [facility] [id number] [place] 14:45:00 15:50:12 Visit VASQUEZADINA ARIAS 350.1.13.58 H ealt MEDICAL 9.2.7.2.686 [address] 3 [id number] 5 2023-01-18 2023-01-18 Office Flynn Francis [facility] [id number] [place] 14:30:00 15:48:14 Visit JAZLYN 350.1.13.58 H [facility] 9.2.7.2.686 [place] [id number] 5 2023-01-18 2023-01-18 Outpatient [facility] [id number] [place] 00:00:00 15:47:11 Health 2023-01-09 2023-01-09 Outpatient FLYNN FRANCIS [facility] [id number] [place] 11:00:00 11:00:00 Health 2023-01-09 2023-01-09 Outpatient [facility] [id number] [place] 11:00:00 11:00:00 Health 2022-12-04 2022-12-04 Outpatient EDITH [facility] [id number] [place] 10:45:00 10:45:00 [facility] 2022-11-30 2022-11-30 Office JAMISON Daniel 6410 [id number] [place] 14:30:00 15:45:[address] 350.1.13.58 Health 9.2.7.2.686 [id number] 5 2022-10-11 2022-10-11 Office JAMISON Vasquez 6410 1.2.840.114 [id number] [place] 13:15:00 14:07:[address] 350.1.13.58 Health 9.2.7.2.686 [id number] 2022-07-17 2022-07-17 Office JAMISON Quijano 1.2.840.114 [id number] [place] 09:30:00 10:04:27 Visit Luis NOELAshley 350.1.13.58 H [facility] 9.2.7.2.686 [facility] [id number] 7 2022-06-01 2022-06-01 Office JAMISON DANIEL 6410 1.2.487.583 [id number] [place] 13:15:00 13:15:[address] 350.1.13.58 Health 9.2.7.2.686 [id number] 5 2022-04-192022-04-19 Office JAMISON Vasquez 6410 1.2.840.114 [id number] [place] 13:30:00 15:35:[address] 350.1.13.58 Health 9.2.7.2.686 [id number] 7 2022-01-16 2022-01-16 Office Nay [facility] 4 1.2.392.061 [id number] [place] 10:00:00 11:09:40 Visit Estrella 350.1.13.58 He alth 9.2.7.2.686 [id number] 2021-12-14 2021-12-14 Office Pedro [facility] 6410 1.2.840.114 [id number] [place] 14:00:00 15:31:[address] 350.1.13.58 Health 9.2.7.2.686 [id number] 2021-12-01 2021-12-01 Office Edith [facility] 6410 1.2.130.924 [id number] [place] 13:00:00 14:02:[address] 350.1.13.58 Health 9.2.7.2.686 [id number] 5 2021-07-18 2021-07-18 Office Samm [facility] 4 1.2.234.561 [id number] [place] 10:10:00 10:44:05 Visit Luis 350.1.13.58 He alth 9.2.7.2.686 [id number] 1 2021-05-26 2021-05-26 Office Edith [facility] 6410 1.2.193.506 [id number] [place] 12:46:04 14:12:[address] 350.1.13.58 Health 9.2.7.2.686 [id number] 5 2021-04-21 2021-04-21 Laura Bravo [facility] 6410 1.2.840. 114 [id number] [place] 00:00:00 00:00:[address] 350.1.13.58 Health 9.2.7.2.686 [id number] 2021-04-20 2021-04-20 Office Pedro [facility] 6410 1.2.840.114 [id number] [place] 13:22:02 14:47:[address] 350.1.13.58 Health 9.2.7.2.686 [id number] 7 2021-03-25 2021-03-26 [facility], 1.2.840.1 [id number] Methodi 08:53:00 14:05:00 Encounter Abhay L. 85738.1.[address] 3.430.2.7 Hospit a .3.191242 l .8 2021-03-25 2021-03-25 Surgery [facility] 1.2.840.1 [id number] Methodi 11:40:00 13:10:[address] 3.430.2.7 Hospit a .3.370315 l .8 2021-03-25 2021-03-25 Travel 1.2.840.1 1.2.731.786 [id number] Methodi 00:00:00 00:00:[address] 3.430.2.7 0.2.7.3.698 Ho spita .3.990693 084.8 l .8 2021-03-24 2021-03-24 Travel 1.2.840.1 1.2.671.603 [id number] Methodi 00:00:00 00:00:[address] 3.430.2.7 0.2.7.3.698 Ho spita .3.623630 084.8 l .8 2021-03-24 2021-03-24 Documentat Provider, 1.2.840.1 [id number] Methodi 00:00:00 00:00:00 ion Unknown 87051.1.[address] 3.430.2.7 Hospit a .3.308366 l .8 2021-03-21 2021-03-21 Lab Dmitriy, 1.2.840.1 [id number] Methodi 15:38:25 15:43:25 Abhay España. 88277.1.[address] 3.430.2.7 Hospit a .3.933315 l .8 2021-03-21 2021-03-21 Orders Jude, 1.2.840.1 [id number] 0404 Methodi 00:00:00 00:00:00 Only Brooke 55693.1.[address] 3.430.2.7 Hospit a .3.480853 l .8 2021-03-21 2021-03-21 Travel 1.2.840.1 1.2.831.604 [id number] Methodi 00:00:00 00:00:[address] 3.430.2.7 0.2.7.3.698 Ho spita .3.187987 084.8 l .8 2021-02-24 2021-02-24 Outpatient EL VANESSA, MDA MDA [id number] 11:02:14 12:40:04 NORRIS jurado 2021-02-10 2021-02-10 Outpatient EL VANESSA, MDA MDA [id number] 07:53:11 12:02:05 NORRIS jurado 2020-09-16 2020-09-16 Outpatient EL VANESSA, MDA MDA [id number] 11:16:11 13:00:55 NORRIS jurado 2020-08-19 2020-08-19 Outpatient EL VANESSA, MDA MDA [id number] 09:44:40 10:16:29 NORRIS jurado 2020-08-10 2020-08-10 Outpatient EL VANESSA, MDA MDA [id number] 08:12:09 15:24:22 NORRIS jurado 2020-07-13 2020-07-14 Inpatient [facility] [id number] [facility] 20:46:00 22:30:00 [place] 79 l [facility] 2020-07-13 2020-07-13 Inpatient U CHAHAL, MHBL MED [id number] BL 15:46:00 01:16:00 MAYSON 2019-11-10 2019-11-10 [facility] [id number] Memoria 16:28:59 19:04:00 [facility] [place] [facility] 2019-11-10 2019-11-10 Emergency E MHFB MHFB [id number] MHFB 10:28:00 10:28:00 2019-05-12 2019-05-12 Emergency [facility] [id number] Memoria 17:27:40 19:30:00 r [place] 06 [facility] nn 2019-05-12 2019-05-12 Emergency E MHFB MHFB [id number] MHFB 12:27:00 12:27:00 2019-03-05 2019-03-06 Outpatient [facility] [id number] Memoria 23:00:00 11:00:00 [facility] [place] 05 [facility] 2019-01-17 2019-01-18 Outpatient [facility] [id number] Memoria 23:00:00 11:00:00 [place] 04 [facility] 2018-12-04 2018-12-04 Outpatient PERCY VANESSA ROSA ISELA [facility] [id number] [place] 08:14:23 08:14:23 NORRIS jurado 2018-11-01 2018-11-02 [facility] [id number] Memoria 19:06:00 20:50:00 [place] 03 [facility] 2017-10-09 2017-10-09 Emergency [facility] [id number] Memoria 18:12:00 21:34:00 [place] 02 [facility] 2016-08-30 2016-08-31 Outpt Diag nullFlavo [facility] [address] [id number] Memoria 22:51:00 05:59:00 Services r Outpatient 05 [facility] 2016-03-08 2016-03-09 Outpt Diag nullFlavo [facility] [address] [id number] Memoria 16:18:00 04:59:00 Services r Outpatient 04 [address] [facility] 2016-01-03 2016-02-02 OP Therapy nullFlavo [facility] [id number] Memoria 13:42:00 04:59:00 Patients r [place] 00 [facility] 2016-01-08 2016-01-09 Outpt Diag nullFlavo [facility] [address] [id number] Memoria 14:44:00 04:59:00 Services r Outpatient 03 christie Arias 2015-11-17 2015-11-18 Outpt Diag rudyFlavo [facility] [address] [id number] Mem[facility] 16:58:00 05:59:00 Services r Outpatient christie Arias 2015-11-10 2015-11-11 Outpt Diag rudyFlavo [facility] [address] [id number] [facility] 22:01:00 05:59:00 Services r Outpatient 01 l Nehemiah Hinds Results Test Description Test Time Test Comments Results Result Comments Source ECG Pre/Post Op 2021-03-26 13:49:08 Test Item Value Reference Range Interpretation Comme nts Ventricular rate (test code = 253) Atrial rate (test code = 255) QRSD interval (test code = 260) QT interval (test code = 264) QTC interval (test code = 265) QRS axis 1 (test code = 268) T wave axis (test code = 270) EKG impression (test code = 273) Atrial fibrillation-Right bundle b ranch block-Abnormal ECG-In automated comparison with ECG of 25-MAR-2021 10:18,-Atrial fibrillation has replaced Sinus rhythm- [facility] Pre/Post [id number] 13:49:08 Test Item Value Reference Range Interpretation Comments Ventricular rate (test code = 253) Atrial rate (test code = 255) QRSD interval (test code = 260) QT interval (test code = 264) QTC interval (test code = 265) QRS axis 1 (test code = 268) T wave axis (test code = 270) EKG impression (test Atrial code = 273) fibrillation-Right bundle branch block-Abnormal ECG-In automated comparison with ECG of 25-MAR-2021 10:18,-Atrial fibrillation has replaced Sinus rhythm- [facility] 12 [id number] 23:56:43 Test Item Value Reference Range Interpretation Comments Ventricular rate (test code = 253) Atrial rate (test code = 255) IN interval (test code = 266) QRSD interval (test code = 260) QT interval (test code = 264) QTC interval (test code = 265) P axis 1 (test code = 267) QRS axis 1 (test code = 268) T wave axis (test code = 270) EKG impression (test Sinus bradycardia with code = 273) 1st degree AV block with premature atrial complexes-Right bundle branch block-Abnormal ECG-In automated comparison with ECG of 27-SEP-2018 06:36,-QRS duration has increased-T wave inversion now evident in Anterior leads- [facility] 12 [id number] 23:56:43 Test Item Value Reference Range Interpretation Comments Ventricular rate (test code = 253) Atrial rate (test code = 255) IN interval (test code = 266) QRSD interval (test code = 260) QT interval (test code = 264) QTC interval (test code = 265) P axis 1 (test code = 267) QRS axis 1 (test code = 268) T wave axis (test code = 270) EKG impression (test code = 273) [facility] Hiybyohi9188-17-75 20:15:38EXAMINATION: XR CHEST 1 VW PORTABLE CLINICAL HISTORY: pneumothorax COMPARISON: None IMPRESSION: Left- sided pacemaker with leads coursing to the right atrium and ventricle. No pneumothorax. Borderline cardiomegaly. No pulmonary edema. Scarring versus tiny loculated effusion at the right costophrenic sulcus. [id number] Interface, Radiology Results Incoming - 03/25/2021 3:18 PM CDT EXAMINATION: XR CHEST 1 VW PORTABLECLINICAL HISTORY: pneumothoraxCOMPARISON: NoneIMPRESSION:Left-sided pacemaker with leads coursing to the right atrium and ventricle.No pneumothorax.Borderline cardiomegaly. No pulmonary edema.Scarring versus tiny loculated effusion at the right costophrenic sulcus.[id number] yaopwokgg4383-51-21 19:27:31Title of operation: 1. AV sequential pacemaker left subclavian vein approach. 2. Left upper extremity venogram. Preoperative diagnosis: Sick sinus syndrome Postoperative diagnosis: Same. Surgeon: SOTO escobar MD Anesthesia: Conscious sedation with Versed and fentanyl Estimated blood loss: 50cc Complications: None Operative course: After informed consent was obtained for the patient with appropriate timeout procedure was called patient was placed on the cardiac catheterization table. The left subclavian fossa was cleaned prepared in the usual fashion as that was the chosen operative site. The patient then underwent left upper extremity venogram twice using 10 cc Visipaque contrast on each occasion. The second venogram was necessitated because of early diffusion of the contrast and inadequate visualization of the subclavian innominate junction. He then received conscious sedation with Versed and fent anyl and this was continuously supplemented during the procedure. He was also continuously monitoredby myself and the circulating nurse including end-tidal CO2, oxygenation, blood pressure, heart rate, and respiration. He tolerated the anesthetic portion well but it should be noted that almost from the beginning of the procedure the patient expressed the need to urinate. We tried to accommodate thisbut he was very clear in stating he could not urinate unless upright. Thus we were unable to allow him to do this during the procedure itself. The left subclavian fossa was then infused with 1% Xylocaine without epinephrine. With a significant amount of difficulty, the left subclavian vein was accessed once. A short J-wire was inserted to the level of the inferior vena cava. However, we were unsuccessful at accessing it a second time and thus abandon those efforts. The wire was clipped to the sterile field. The cone of anesthesia was then extended inferiorly laterally and medially with lidocaine. He we then made a vertical pocket incised down to the level of anterior pectoralis fascia the pannus layer was approximately 2-1/2 to 3 cm thick. However we were successful and a moderate amount of dermis induced bleeding that was controlled with Bovie cauterization. The wire was then incorporated down into the sterile field. A 9 [place] sheath was then inserted leaving the J-wire in place. The ventricular lead was then placed into the vein with the distal tip in the inferior vena cava. The 9 [place] sheath was then torn away and a 7 [place] sheath placed over the residual J-wire. The atrial lead was then inserted to the same level and the sheath pulled away with hemostasis achieved manually. Initiallywe attempted to place the ventricular lead to the inferoapical portion of the right ventricle. However, I was concerned that there was mechanical disruption of the lead which was noticed immediately when I attempted to turn the distal screw. This ultimately resulted in removing the lead in its entirety and necessitating a new direct stick into the subclavian vein. However this was successfully accompl ished and a new lead inserted through a 7 [place] sheath with hemostasis achieved manually. At that point we were able to secure initially the ventricular and subsequently the atrial lead into their respective chambers with appropriate sensing and capture thresholds achieved. However, any attempt to insert the atrial lead, the patient went into atrial fibrillation. Nonetheless, his fibrillatory waves showed excellent sensing. There was also no diaphragmatic pacing at 10 V and thus I felt comfortable proceeding with securing the lead in place. Each lead was secured to its own suture sleeve and two 1-0 silk sutures to the deep fascia. The pocket was then copiously flushed with antibiotic solution after removing the 2 antibiotic soaked 4 x 4's which had been inserted. The sponge count was correct. The pacemaker generator was then attached to the leads and itself secured with a 1-0 silk suture. Therewere 2 layers of 2-0 interrupted Vicryl closure and a row of roselyn to close the skin. At the end of the procedure the entire chest was visualized fluoroscopically. There was adequate sway noted on both leads, no evidence of pneumothorax and no evidence of shoulder impingement syndrome. At that point, sterile field was disrupted and the patient underwent straight cath which was left in place. The plan is to remove the catheter once his bed rest is up in 6 hours. The particulars of the pacemaker generator are that it is a Medtronic model WI DR 01 serial number are in be [id number]. The atrial lead is a Medtronic [id number] active-fixation lead serial number BB [id number]. P wave sensing is 3.5 mV with capture to 0.3 mV at 0.4 ms. There was no diaphragmatic pacing at 10V. The ventricular lead is a Medtronic 416125 active-fixation lead serial number [id number]. R wave sensing was 14 to 17mV with capture2.8 V at 0.4ms. The overall the patient tolerated the procedure well. Chest x-ray is pending at the time of this dictation. He will be observed overnight for multiple reasons.[facility] 2021-03-22 02:08:34 Test Item Value Reference Range Interpretation Comments Interpretation (test Negative results do code = 1493812) not preclude 2019-nCoV infection and should not be used as the sole basis for treatment or other patient management decisions. Negative results must be combined with clinical observations, patient history, and epidemiological information. COVID-19 qualitative Not-Detected Not-Detected RT-PCR result (test code = 71979-4) COVID-19 qualitative See link below for C ase Number: RT-PCR (test code = PDF Lab Report [id number]) [facility] qualitative [id number] 02:08:34 Test Item Value Reference Range Interpretation Comments Interpretation (test code = 6207303) COVID-19 qualitative RT-PCR Not-Detected Not-Detected result (test code = 56254-9) COVID-19 qualitative RT-PCR See link below for (test code = 7070) PDF [facility] Report [facility]19) RNA [Presence] in Respiratory specimen by SRIDHAR with probe gporkiqhi0219-29-02 21:07:48 Test Item Value Reference Range Interpretation Comments SARS-CoV-2 (COVID-19) RNA Not detected Not-Detected [Presence] in Respiratory specimen by SRIDHAR with probe detection (test code = 32580-2) Whether patient is employed in a healthcare setting (test code = 33169-1) Whether the patient has symptoms related to condition of interest (test code = 63455-8) Patient was hospitalized because of this condition (test code = 08144-9) Whether the patient was admitted to intensive care unit (ICU) for condition of interest (test code = 42974-1) Whether patient resides in a congregate care setting (test code = 72020-5) [facility] [employer] [id number] 09:04:00 Test Item Value Reference Range Interpretation Comments Glucose Lvl (test code = Glucose Lvl) 85 70-99 [facility] [id number] 09:04:00 Test Item Value Reference Range Interpretation Comments BUN (test code = BUN) 14 7-22 [facility] [id number] 09:04:00 Test Item Value Reference Range Interpretation Comments Creatinine Lvl (test code = Creatinine 0.80 0.50-1.40 Lvl) [facility]2020-10-07 09:04:00 Test Item Value Reference Range Interpretation Comments Sodium Lvl (test code = Sodium Lvl) 141 135-145 [place] 734130-10-07 09:04:00 Test Item Value Reference Range Interpretation Comments Potassium Lvl (test code = Potassium 3.5 3.5-5.1 Lvl) [place] 734130-10-07 09:04:00 Test Item Value Reference Range Interpretation Comments Chloride Lvl (test code = Chloride Lvl) 106 95-109 [place] 734130-10-07 09:04:00 Test Item Value Reference Range Interpretation Comments CO2 (test code = CO2) 28 24-32 [place] 734130-10-07 09:04:00 Test Item Value Reference Range Interpretation Comments Calcium Lvl (test code = Calcium Lvl) 8.1 8.5-10.5 [place] 734130-10-07 09:04:00 Test Item Value Reference Range Interpretation Comments AGAP (test code = AGAP) 10.5 10.0-20.0 [place] 734130-10-07 09:04:00 Test Item Value Reference Range Interpretation Comments eGFR (test code = eGFR) 83 [place] 044170-10-07 09:04:00 Test Item Value Reference Range Interpretation Comments WBC (test code = WBC) 6.7 3.7-10.4 [place] 044170-10-07 09:04:00 Test Item Value Reference Range Interpretation Comments RBC (test code = RBC) 4.10 4.70-6.10 [place] 044170-10-07 09:04:00 Test Item Value Reference Range Interpretation Comments Hgb (test code = Hgb) 12.1 14.0-18.0 [place] 044170-10-07 09:04:00 Test Item Value Reference Range Interpretation Comments Hct (test code = Hct) 36.5 42.0-54.0 [place] 044170-10-07 09:04:00 Test Item Value Reference Range Interpretation Comments MCV (test code = MCV) 89.0 80.0-94.0 [place] [address]-10-07 09:04:00 Test Item Value Reference Range Interpretation Comments MCH (test code = MCH) 29.5 pg 27.0-31.0 [facility] CampusIcnleimJOUJBCKSKI6696-35-76 09:04:00 Test Item Value Reference Range Interpretation Comments MCHC (test code = MCHC) 33.2 32.0-36.0 [facility] CampusDtapzifTYRLSBNKOP0376-87-32 09:04:00 Test Item Value Reference Range Interpretation Comments RDW (test code = RDW) 14.6 11.5-14.5 [facility] CampusGhxwfnzYVGCOWIZPK0403-49-22 09:04:00 Test Item Value Reference Range Interpretation Comments Platelet (test code = Platelet) 152 133-450 [facility] CampusExatysoIRSJDMCHZY5166-90-08 09:04:00 Test Item Value Reference Range Interpretation Comments MPV (test code = MPV) 9.4 7.4-10.4 [facility] CampusVfxxbueOPMUPNAEXH6969-22-68 09:04:00 Test Item Value Reference Range Interpretation Comments RBC Morph (test code = Normal (07/14/20 4:04 RBC Morph) AM) [facility] CampusMglhfjgHWASFZSOCZ0269-35-80 09:04:00 Test Item Value Reference Range Interpretation Comments Plt Morph (test code = Normal (07/14/20 4:04 Plt Morph) AM) [facility] CampusIjuhgbbTIJNBILMCT9694-59-49 09:04:00 Test Item Value Reference Range Interpretation Comments Segs (test code = Segs) 55.9 45.0-75.0 [facility] CampusNjkeojmXICVDCDJRO0147-73-73 09:04:00 Test Item Value Reference Range Interpretation Comments Lymphocytes (test code = Lymphocytes) 20.5 20.0-40.0 [facility] CampusWahokkePKMFPFITIH1026-51-77 09:04:00 Test Item Value Reference Range Interpretation Comments Monocytes (test code = Monocytes) 17.1 2.0-12.0 [place] 044170-10-07 09:04:00 Test Item Value Reference Range Interpretation Comments Eosinophils (test code = 6.1 See_Comment [A utomated message] The Eosinophils) system which ge nerated this result tra nsmitted reference range : <=4.0. The reference r boni was not used to int erpret this result as normal/abnormal . [facility] CampusWepebsaUKDRYLQRVM7804-31-03 09:04:00 Test Item Value Reference Range Interpretation Comments Basophils (test code = 0.4 See_Comment [Aut omated message] The Basophils) system which ge nerated this result tra nsmitted reference range : <=1.0. The reference r boni was not used to int erpret this result as normal/abnormal . [facility] SystemVwvzytcQFVSPGYLJE7652-50-24 09:04:00 Test Item Value Reference Range Interpretation Comments Neutrophils # (test code = Neutrophils 3.8 1.5-8.1 #) [facility] HospitalNeybtdjFZJSQIAHGW7549-85-05 09:04:00 Test Item Value Reference Range Interpretation Comments Lymphocytes # (test code = Lymphocytes 1.4 1.0-5.5 #) [facility] HospitalZbncroxEMANOOLHIV2585-95-98 09:04:00 Test Item Value Reference Range Interpretation Comments Monocytes # (test code 1.2 See_Comment [Aut omated message] The = Monocytes #) system which generated this result tra nsmitted reference range : <=0.8. The reference r boni was not used to int erpret this result as normal/abnormal . [facility] HospitalZavoaqrTMORTVPQJY4805-20-70 09:04:00 Test Item Value Reference Range Interpretation Comments Eosinophils # (test code 0.4 See_Comment [A utomated message] The = Eosinophils #) system whic h generated this result tra nsmitted reference range : <=0.5. The reference r boni was not used to int erpret this result as normal/abnormal . [facility] SystemCARDIAC VXVIYRM6290-73-10 01:12:00 Test Item Value Reference Range Interpretation Comments Troponin-I (test code no gt See_Comment [Auto mated message] The = Troponin-I) system which g enerated this result transmit moses reference range : <=0.40. The reference r boni was not used to interpr et this result as natali l/abnormal. [facility] SystemCHEM [id number] 01:12:00 Test Item Value Reference Range Interpretation Comments Procalcitonin Lvl (test no gt See_Comment [Au tomated message] code = Procalcitonin Lvl) Th e system which generated this result transmitted ref erence range: <=0.10. The reference range was not used to interpr et this result as normal/abnormal . [facility] SystemURINE AND [id number] 21:53:00 Test Item Value Reference Range Interpretation Comments UA Color (test code = Yellow *NA*(07/13/20 UA Color) 4:53 PM) [facility] AND [id number] 21:53:00 Test Item Value Reference Range Interpretation Comments UA Turbidity (test code = Clear (07/13/20 4:53 UA Turbidity) PM) [facility] AND [id number] 21:53:00 Test Item Value Reference Range Interpretation Comments UA Spec Grav (test code = UA Spec 1.009 1 Grav) [facility] AND [id number] 21:53:00 Test Item Value Reference Range Interpretation Comments UA pH (test code = UA pH) 6.0 1 5.0-8.0 [facility] AND [id number] 21:53:00 Test Item Value Reference Range Interpretation Comments UA Protein (test code = UA Negative mg/dL Protein) [facility] AND [id number] 21:53:00 Test Item Value Reference Range Interpretation Comments UA Glucose (test code = UA Negative mg/dL Glucose) [facility] AND [id number] 21:53:00 Test Item Value Reference Range Interpretation Comments UA Ketones (test code = UA Negative mg/dL Ketones) [facility] AND [id number] 21:53:00 Test Item Value Reference Range Interpretation Comments UA Bili (test code = Negative *NA*(07/13/20 UA Bili) 4:53 PM) [facility] AND [id number] 21:53:00 Test Item Value Reference Range Interpretation Comments UA Blood (test code = Negative (07/13/20 4:53 UA Blood) PM) [facility] AND [id number] 21:53:00 Test Item Value Reference Range Interpretation Comments UA Nitrite (test code Negative (07/13/20 4:53 = UA Nitrite) PM) [facility] AND [id number] 21:53:00 Test Item Value Reference Range Interpretation Comments UA Leuk Est (test Negative (07/13/20 4:53 code = UA Leuk Est) PM) [facility] AND [id number] 21:53:00 Test Item Value Reference Range Interpretation Comments UA WBC (test code = no gt See_Comment [Automa moses message] The UA WBC) system which ge nerated this result transmit moses reference range : <=5. The reference range was not used to interpr et this result as natali l/abnormal. [facility] AND [id number] 21:53:00 Test Item Value Reference Range Interpretation Comments UA RBC (test code = no gt See_Comment [Automa moses message] The UA RBC) system which ge nerated this result transmit moses reference range : <=2. The reference range was not used to interpr et this result as natali l/abnormal. [facility] AND [id number] 21:53:00 Test Item Value Reference Range Interpretation Comments UA Mucus (test code = UA Mucus) Few /LPF [facility] AND [id number] 21:53:00 Test Item Value Reference Range Interpretation Comments UA Sq Epi (test code = UA Sq Epi) None Seen [facility] AND [id number] 21:53:00 Test Item Value Reference Range Interpretation Comments UA Urobilinogen (test code = UA <=1.0 mg/dL 0.1-1.0 Urobilinogen) [facility] SystemXvyhqjuNYJRAIJVPB1885-17-56 14:43:00 Test Item Value Reference Range Interpretation Comments D-Dimer (test code = D-Dimer) 1.17 [facility] [id number] 14:43:00 Test Item Value Reference Range Interpretation Comments Source Respiratory Nasophrngl Swb Panel PCR (test code = *NA*(07/13/20 9:43 AM) Source Respiratory Panel PCR) [facility] [id number] 14:43:00 Test Item Value Reference Range Interpretation Comments Influenza A PCR (test Negative *NA*(07/13/20 code = Influenza A PCR) 9:43 AM) [facility] BJPCCEUMTU2626-06-73 14:43:00 Test Item Value Reference Range Interpretation Comments Influenza B PCR (test Negative *NA*(07/13/20 code = Influenza B PCR) 9:43 AM) [facility] SGFCIHJKGE8649-69-54 14:43:00 Test Item Value Reference Range Interpretation Comments RSV PCR (test code = Negative *NA*(07/13/20 RSV PCR) 9:43 AM) [facility] [id number] 10:24:00 Test Item Value Reference Range Interpretation Comments Ferritin Lvl (test code = Ferritin Lvl) 23 22-275 [facility] SystemCARDIAC [id number] 10:24:00 Test Item Value Reference Range Interpretation Comments Troponin-I (test code no gt See_Comment [Auto mated message] The = Troponin-I) system which g enerated this result transmit moses reference range : <=0.40. The reference r boni was not used to interpr et this result as natali l/abnormal. [facility] SystemCHE[facility] [id number] 10:24:00 Test Item Value Reference Range Interpretation Comments LDH (test code = LDH) 226 98-192 [facility] SystemJhkoybmHYSGSFGNBU4498-86-76 10:24:00 Test Item Value Reference Range Interpretation Comments WBC (test code = WBC) 6.3 3.7-10.4 [facility] SystemKynvkuwNWIOUPVOEV7888-21-53 10:24:00 Test Item Value Reference Range Interpretation Comments RBC (test code = RBC) 4.23 4.70-6.10 [facility] SystemOztolxeISDMACGKAW1743-63-43 10:24:00 Test Item Value Reference Range Interpretation Comments Hgb (test code = Hgb) 12.7 14.0-18.0 [facility] SystemNxcwljlEIVCVVKWUK3486-47-73 10:24:00 Test Item Value Reference Range Interpretation Comments Hct (test code = Hct) 37.1 42.0-54.0 [facility] SystemSttysuaQLLPXPHQEP5099-51-23 10:24:00 Test Item Value Reference Range Interpretation Comments MCV (test code = MCV) 87.6 80.0-94.0 [facility] SystemFtkudirZDLIXJRPXI6512-47-20 10:24:00 Test Item Value Reference Range Interpretation Comments MCH (test code = MCH) 30.0 pg 27.0-31.0 [facility] SystemHizxsvqXNMIUVFYAI1605-18-70 10:24:00 Test Item Value Reference Range Interpretation Comments MCHC (test code = MCHC) 34.2 32.0-36.0 [facility] SystemWbgpqaaMOAPVWRGEG8081-58-62 10:24:00 Test Item Value Reference Range Interpretation Comments RDW (test code = RDW) 14.9 11.5-14.5 [facility] SystemPvgjzuqJYMOXHJIRO3232-09-57 10:24:00 Test Item Value Reference Range Interpretation Comments Platelet (test code = Platelet) 217 133-450 [facility] CampusOjtxylvKIRAHYPTIU6395-70-15 10:24:00 Test Item Value Reference Range Interpretation Comments MPV (test code = MPV) 9.4 7.4-10.4 [facility] CampusAmwhnkxOTAHIDIUSQ7010-57-87 10:24:00 Test Item Value Reference Range Interpretation Comments Segs (test code = Segs) 74.8 45.0-75.0 [facility] CampusJkjjttaOAJAJFJLCU4165-15-89 10:24:00 Test Item Value Reference Range Interpretation Comments Lymphocytes (test code = Lymphocytes) 7.9 20.0-40.0 [facility] CampusSboptnySKCNLKQRCI5514-19-04 10:24:00 Test Item Value Reference Range Interpretation Comments Monocytes (test code = Monocytes) 15.8 2.0-12.0 [facility] CampusAcoodxoGUSXGMACRD2598-94-57 10:24:00 Test Item Value Reference Range Interpretation Comments Eosinophils (test code = 0.9 See_Comment [A utomated message] The Eosinophils) system which ge nerated this result tra nsmitted reference range : <=4.0. The reference r boni was not used to int erpret this result as normal/abnormal . [facility] CampusAksmxsjSXGGBBKYZM7228-66-78 10:24:00 Test Item Value Reference Range Interpretation Comments Basophils (test code = 0.6 See_Comment [Aut omated message] The Basophils) system which ge nerated this result tra nsmitted reference range : <=1.0. The reference r boni was not used to int erpret this result as normal/abnormal . [facility] CampusLjpmhrcPJQTSMPZXW6307-75-26 10:24:00 Test Item Value Reference Range Interpretation Comments Neutrophils # (test code = Neutrophils 4.7 1.5-8.1 #) [facility] CampusXwlsamhUGQGOTXXCW3057-04-94 10:24:00 Test Item Value Reference Range Interpretation Comments Lymphocytes # (test code = Lymphocytes 0.5 1.0-5.5 #) [facility] CampusKyabosbLXOTCCMNFJ1660-27-71 10:24:00 Test Item Value Reference Range Interpretation Comments Monocytes # (test code 1.0 See_Comment [Aut omated message] The = Monocytes #) system which generated this result tra nsmitted reference range : <=0.8. The reference r boni was not used to int erpret this result as normal/abnormal . [facility] CampusBukyexhKHHHHZSSUW4397-14-91 10:24:00 Test Item Value Reference Range Interpretation Comments Eosinophils # (test code 0.1 See_Comment [A utomated message] The = Eosinophils #) system whic h generated this result tra nsmitted reference range : <=0.5. The reference r boni was not used to int erpret this result as normal/abnormal . [facility] HospitalXppouhlMPGAQXXUJB5076-28-04 10:24:00 Test Item Value Reference Range Interpretation Comments C-REACTIVE PROTEIN (test code = 17.5 C-REACTIVE PROTEIN) [facility] HospitalLiligo.comCARcollegefeedAC KNWOGCQ4090-94-49 07:32:00 Test Item Value Reference Range Interpretation Comments Troponin-I (test code no gt See_Comment [Auto mated message] The = Troponin-I) system which g enerated this result transmit moses reference range : <=0.40. The reference r boni was not used to interpr et this result as natali l/abnormal. [facility] HospitalIntellicyt VKMELQS3473-15-96 07:32:00 Test Item Value Reference Range Interpretation Comments BNP (test code = BNP) 111 [facility] [employer] [id number] 07:32:00 Test Item Value Reference Range Interpretation Comments Glucose Lvl (test code = Glucose Lvl) 102 70-99 [facility] [place]2020-10-06 07:32:00 Test Item Value Reference Range Interpretation Comments BUN (test code = BUN) 19 7-22 [facility] [employer] [id number] 07:32:00 Test Item Value Reference Range Interpretation Comments Creatinine Lvl (test code = Creatinine 0.88 0.50-1.40 Lvl) [facility] [id number] 07:32:00 Test Item Value Reference Range Interpretation Comments Sodium Lvl (test code = Sodium Lvl) 142 135-145 [facility] [place]2020-10-06 07:32:00 Test Item Value Reference Range Interpretation Comments Potassium Lvl (test code = Potassium 3.6 3.5-5.1 Lvl) [facility] [id number] 07:32:00 Test Item Value Reference Range Interpretation Comments Chloride Lvl (test code = Chloride Lvl) 104 95-109 [facility] [id number] 07:32:00 Test Item Value Reference Range Interpretation Comments CO2 (test code = CO2) 30 24-32 [place] 734130-10-06 07:32:00 Test Item Value Reference Range Interpretation Comments Calcium Lvl (test code = Calcium Lvl) 8.2 8.5-10.5 [place] 734130-10-06 07:32:00 Test Item Value Reference Range Interpretation Comments AGAP (test code = AGAP) 11.6 10.0-20.0 [place] 734130-10-06 07:32:00 Test Item Value Reference Range Interpretation Comments eGFR (test code = eGFR) 80 [place] 734130-10-06 07:32:00 Test Item Value Reference Range Interpretation Comments Total Protein (test code = Total 7.1 6.4-8.4 Protein) [place] 734130-10-06 07:32:00 Test Item Value Reference Range Interpretation Comments Albumin Lvl (test code = Albumin Lvl) 3.6 3.5-5.0 [place] 734130-10-06 07:32:00 Test Item Value Reference Range Interpretation Comments ALT (test code = ALT) 25 See_Comment [Auto mated message] The system which ge nerated this result transmit moses reference range : <=65. The reference range was not used to interpr et this result as natali l/abnormal. [place] 734130-10-06 07:32:00 Test Item Value Reference Range Interpretation Comments AST (test code = AST) 20 See_Comment [Auto mated message] The system which ge nerated this result transmit moses reference range : <=37. The reference range was not used to interpr et this result as natali l/abnormal. [place] 734130-10-06 07:32:00 Test Item Value Reference Range Interpretation Comments Alk Phos (test code = Alk Phos) 82 39-136 [place] [address]-10-06 07:32:00 Test Item Value Reference Range Interpretation Comments Bili Total (test code = Bili Total) 0.9 0.2-1.3 [place] [address]-10-06 07:32:00 Test Item Value Reference Range Interpretation Comments Bili Direct (test code 0.2 See_Comment [Aut omated message] The = Bili Direct) system which generated this result tra nsmitted reference range : <=0.3. The reference r boni was not used to int erpret this result as natali l/abnormal. [facility] [id number] 07:32:00 Test Item Value Reference Range Interpretation Comments Bili Indirect (test 0.7 See_Comment [Automa moses message] The code = Bili Indirect) system which generated this result tra nsmitted reference range : <=1.0. The reference r boni was not used to int erpret this result as normal/abnormal . [facility] [id number] 07:32:00 Test Item Value Reference Range Interpretation Comments Globulin (test code = Globulin) 3.5 2.7-4.2 [facility] OfuzannCHEM [id number] 07:32:00 Test Item Value Reference Range Interpretation Comments A/G Ratio (test code = A/G Ratio) 1.0 1 0.7-1.6 [facility] [id number] 07:32:00 Test Item Value Reference Range Interpretation Comments Magnesium Lvl (test code = Magnesium 2.2 1.8-2.4 Lvl) [facility]C1155[facility]-38 07:32:00 Test Item Value Reference Range Interpretation Comments Coronavirus (COVID-19) Not Detected (07/13/20 SRIDHAR (test code = 2:32 AM) Coronavirus (COVID-19) SRIDHAR) [facility] [id number] 07:32:00 Test Item Value Reference Range Interpretation Comments LDL (Calculated) (test code = LDL 81 (Calculated)) [facility] [id number] 07:32:00 Test Item Value Reference Range Interpretation Comments Chol (test code = Chol) 152 [facility] HospitalJoxigufQKIUBF0537-30-48 07:32:00 Test Item Value Reference Range Interpretation Comments Trig (test code = Trig) 100 [facility] OciwzscXWNHIG7251-98-61 07:32:00 Test Item Value Reference Range Interpretation Comments HDL (test code = HDL) 51 [facility] IvplrprBBSZBF2223-22-12 07:32:00 Test Item Value Reference Range Interpretation Comments CHD Risk (test code = CHD Risk) 2.98 1 4.00-7.30 [facility] BxmkcemDGOYSW5056-05-28 07:32:00 Test Item Value Reference Range Interpretation Comments VLDL (test code = VLDL) 20 1 [facility] [id number] 18:15:00 Test Item Value Reference Range Interpretation Comments UA Color (test code = Yellow *NA*(11/10/19 UA Color) 12:15 PM) [facility] [id number] 18:15:00 Test Item Value Reference Range Interpretation Comments UA Turbidity (test code = Clear (11/10/19 12:15 UA Turbidity) PM) [facility] [id number] 18:15:00 Test Item Value Reference Range Interpretation Comments UA Spec Grav (test code = UA Spec 1.010 1 Grav) [facility] [id number] 18:15:00 Test Item Value Reference Range Interpretation Comments UA pH (test code = UA pH) 6.0 1 5.0-8.0 [facility] [id number] 18:15:00 Test Item Value Reference Range Interpretation Comments UA Protein (test code Negative (11/10/19 12:15 = UA Protein) PM) [facility] [id number] 18:15:00 Test Item Value Reference Range Interpretation Comments UA Glucose (test code Negative (11/10/19 12:15 = UA Glucose) PM) [facility] [id number] 18:15:00 Test Item Value Reference Range Interpretation Comments UA Ketones (test code Negative *NA*(11/10/19 = UA Ketones) 12:15 PM) [facility] [id number] 18:15:00 Test Item Value Reference Range Interpretation Comments UA Bili (test code = Negative *NA*(11/10/19 UA Bili) 12:15 PM) [facility] [id number] 18:15:00 Test Item Value Reference Range Interpretation Comments UA Blood (test code = Negative (11/10/19 12:15 UA Blood) PM) [facility] [id number] 18:15:00 Test Item Value Reference Range Interpretation Comments UA Urobilinogen (test code = UA 0.2 0.1-1.0 Urobilinogen) [facility] [id number] 18:15:00 Test Item Value Reference Range Interpretation Comments UA Nitrite (test code Negative (11/10/19 12:15 = UA Nitrite) PM) [facility] [id number] 18:15:00 Test Item Value Reference Range Interpretation Comments UA Leuk Est (test Negative (11/10/19 12:15 code = UA Leuk Est) PM) [facility] Maria InesannURINE AND [id number] 18:15:00 Test Item Value Reference Range Interpretation Comments UA Sq Epi (test code = UA Sq Occasional /LPF Epi) [facility] [id number] 18:15:00 Test Item Value Reference Range Interpretation Comments UA WBC (test code = UA WBC) 0-2 /HPF [facility] [id number] 18:15:00 Test Item Value Reference Range Interpretation Comments UA RBC (test None Seen See_Comment [Automated mes arcelia] code = UA RBC) (11/10/19 12:15 The system w hich PM) generated this result transmitted ref erence range: <=2. The reference range was not used to int erpret this result as normal/abnormal . [facility] AND [id number] 18:15:00 Test Item Value Reference Range Interpretation Comments UA Bacteria (test code = None Seen (11/10/19 UA Bacteria) 12:15 PM) [facility] HospitalLiligo.comCARDIAC [id number] 17:08:00 Test Item Value Reference Range Interpretation Comments Troponin-I (test code 0.02 See_Comment [Auto mated message] The = Troponin-I) system which g enerated this result transmit moses reference range : <=0.40. The reference r boni was not used to interpr et this result as natali l/abnormal. [facility] HospitalLiligo.comCARcollegefeedAC [id number] 17:08:00 Test Item Value Reference Range Interpretation Comments proBNP (test code = 472 See_Comment [Automa moses message] The proBNP) system which ge nerated this result tra nsmitted reference range : <=450. The reference r boni was not used to int erpret this result as natali l/abnormal. [facility] [id number] 17:08:00 Test Item Value Reference Range Interpretation Comments Glucose Lvl (test code = Glucose Lvl) 86 70-99 [facility] [id number] 17:08:00 Test Item Value Reference Range Interpretation Comments BUN (test code = BUN) 14 7-22 [facility]2020-02-03 17:08:00 Test Item Value Reference Range Interpretation Comments Creatinine Lvl (test code = Creatinine 1.05 0.50-1.40 Lvl) [facility]2020-02-03 17:08:00 Test Item Value Reference Range Interpretation Comments Sodium Lvl (test code = Sodium Lvl) 137 135-145 [facility] HospitalLiligo.comGEORGE [place] [id number] 17:08:00 Test Item Value Reference Range Interpretation Comments Potassium Lvl (test code = Potassium 3.4 3.5-5.1 Lvl) [facility]2020-02-03 17:08:00 Test Item Value Reference Range Interpretation Comments Chloride Lvl (test code = Chloride Lvl) 98 95-109 [facility]2020-02-03 17:08:00 Test Item Value Reference Range Interpretation Comments CO2 (test code = CO2) 30 24-32 [place] 734130-02-03 17:08:00 Test Item Value Reference Range Interpretation Comments Calcium Lvl (test code = Calcium Lvl) 7.8 8.5-10.5 [place] 734130-02-03 17:08:00 Test Item Value Reference Range Interpretation Comments AGAP (test code = AGAP) 12.4 10.0-20.0 [facility]2020-02-03 17:08:00 Test Item Value Reference Range Interpretation Comments B/C Ratio (test code = B/C Ratio) 13 1 6-25 [place] 734130-02-03 17:08:00 Test Item Value Reference Range Interpretation Comments eGFR (test code = eGFR) 66 [facility]2020-02-03 17:08:00 Test Item Value Reference Range Interpretation Comments Total Protein (test code = Total 6.9 6.4-8.4 Protein) [place] 734130-02-03 17:08:00 Test Item Value Reference Range Interpretation Comments Albumin Lvl (test code = Albumin Lvl) 3.5 3.5-5.0 [place] 734130-02-03 17:08:00 Test Item Value Reference Range Interpretation Comments ALT (test code = ALT) 49 See_Comment [Auto mated message] The system which ge nerated this result transmit moses reference range : <=65. The reference range was not used to interpr et this result as natali l/abnormal. [facility] SystemMineral[facility] [id number] 17:08:00 Test Item Value Reference Range Interpretation Comments AST (test code = AST) 56 See_Comment [Auto mated message] The system which ge nerated this result transmit moses reference range : <=37. The reference range was not used to interpr et this result as natali l/abnormal. [facility]2020-02-03 17:08:00 Test Item Value Reference Range Interpretation Comments Alk Phos (test code = Alk Phos) 74 39-136 [facility]2020-02-03 17:08:00 Test Item Value Reference Range Interpretation Comments Bili Total (test code = Bili Total) 0.5 0.2-1.3 [place] [address]-02-03 17:08:00 Test Item Value Reference Range Interpretation Comments Globulin (test code = Globulin) 3.4 2.7-4.2 [place] [address]-02-03 17:08:00 Test Item Value Reference Range Interpretation Comments A/G Ratio (test code = A/G Ratio) 1.0 1 0.7-1.6 [place] [address]-02-03 17:08:00 Test Item Value Reference Range Interpretation Comments Magnesium Lvl (test code = Magnesium 2.0 1.8-2.4 Lvl) [place] [address]-02-03 17:08:00 Test Item Value Reference Range Interpretation Comments WBC (test code = WBC) 3.8 3.7-10.4 [place] [address]-02-03 17:08:00 Test Item Value Reference Range Interpretation Comments RBC (test code = RBC) 4.75 4.70-6.10 [place] [address]-02-03 17:08:00 Test Item Value Reference Range Interpretation Comments Hgb (test code = Hgb) 13.5 14.0-18.0 [place] [address]-02-03 17:08:00 Test Item Value Reference Range Interpretation Comments Hct (test code = Hct) 40.4 42.0-54.0 [place] [address]-02-03 17:08:00 Test Item Value Reference Range Interpretation Comments MCV (test code = MCV) 85.2 80.0-94.0 [facility] CampusDcreaccYXUMHDUYAZ6797-03-99 17:08:00 Test Item Value Reference Range Interpretation Comments MCH (test code = MCH) 28.5 pg 27.0-31.0 [facility] CampusQfwaobqYZGRWEHFPX0317-33-81 17:08:00 Test Item Value Reference Range Interpretation Comments MCHC (test code = MCHC) 33.4 32.0-36.0 [facility] CampusAiyjlceEIRDNEEKET7125-16-94 17:08:00 Test Item Value Reference Range Interpretation Comments RDW (test code = RDW) 14.7 11.5-14.5 [facility] CampusYvowtauAYYLGCOHFO1600-51-06 17:08:00 Test Item Value Reference Range Interpretation Comments Platelet (test code = Platelet) 187 133-450 [facility] CampusNnbmqyqYNWXAUDFYT6190-40-74 17:08:00 Test Item Value Reference Range Interpretation Comments MPV (test code = MPV) 8.9 7.4-10.4 [facility] CampusLsxegudXOBEWBTTYV8953-03-54 17:08:00 Test Item Value Reference Range Interpretation Comments Segs (test code = Segs) 44.0 45.0-75.0 [facility] CampusQypclvuSJLPSIWJHC3451-51-87 17:08:00 Test Item Value Reference Range Interpretation Comments Bands (test code = 2.0 See_Comment [Automat ed message] The Bands) system which ge nerated this result transmit moses reference range : <=11.0. The reference r boni was not used to interpr et this result as natali l/abnormal. [facility] CampusSrqgdpfXOFYQFFJDY8521-90-19 17:08:00 Test Item Value Reference Range Interpretation Comments Lymphocytes (test code = Lymphocytes) 18.0 20.0-40.0 [place] 044170-02-03 17:08:00 Test Item Value Reference Range Interpretation Comments Atypical Lymphs (test code = Atypical 6.0 Lymphs) [facility] CampusLfyzinkGBQOZJBZAS7742-74-87 17:08:00 Test Item Value Reference Range Interpretation Comments Monocytes (test code = Monocytes) 30.0 2.0-12.0 [place] 044170-02-03 17:08:00 Test Item Value Reference Range Interpretation Comments Eosinophils (test code = 0.0 See_Comment [A utomated message] The Eosinophils) system which ge nerated this result tra nsmitted reference range : <=4.0. The reference r boni was not used to int erpret this result as normal/abnormal . [facility] CampusFopyvslZAYYAKKWSQ9291-08-19 17:08:00 Test Item Value Reference Range Interpretation Comments Basophils (test code = 0.0 See_Comment [Aut omated message] The Basophils) system which ge nerated this result tra nsmitted reference range : <=1.0. The reference r boni was not used to int erpret this result as normal/abnormal . [facility] CampusXaaiicaRBOSWFNXSI9241-23-62 17:08:00 Test Item Value Reference Range Interpretation Comments Neutrophils # (test code = Neutrophils 1.7 1.5-8.1 #) [facility] CampusRgjworcXYEFBAAHVS0625-06-29 17:08:00 Test Item Value Reference Range Interpretation Comments Lymphocytes # (test code = Lymphocytes 0.9 1.0-5.5 #) [facility] CampusDuxphrfUAOEJALDNO6923-29-77 17:08:00 Test Item Value Reference Range Interpretation Comments Monocytes # (test code 1.1 See_Comment [Aut omated message] The = Monocytes #) system which generated this result tra nsmitted reference range : <=0.8. The reference r boni was not used to int erpret this result as normal/abnormal . [facility] CampusCraaiixVJFMVKTAPO2240-19-91 17:08:00 Test Item Value Reference Range Interpretation Comments Eosinophils # (test code 0.0 See_Comment [A utomated message] The = Eosinophils #) system whic h generated this result tra nsmitted reference range : <=0.5. The reference r boni was not used to int erpret this result as normal/abnormal . [facility] CampusMvemskxZOYVTTFHYC6032-64-68 17:08:00 Test Item Value Reference Range Interpretation Comments Basophils # (test code 0.0 See_Comment [Aut omated message] The = Basophils #) system which generated this result tra nsmitted reference range : <=0.2. The reference r boni was not used to int erpret this result as normal/abnormal . [facility] CampusPqwzvacABRNZEWPRH4747-83-90 17:08:00 Test Item Value Reference Range Interpretation Comments RBC Morph (test code = Normal (11/10/19 11:08 RBC Morph) AM) [facility] CampusUtlqtjmJGZOHQRMCG6775-55-18 17:08:00 Test Item Value Reference Range Interpretation Comments Plt Morph (test code = Normal (11/10/19 11:08 Plt Morph) AM) [facility]ann[facility]IR[facility] - [id number] 17:08:00 Test Item Value Reference Range Interpretation Comments Influ A (test code = Positive 2*ABN*(11/10/19 Influ A) 11:08 AM) [facility]annVIRAL - [id number] 17:08:00 Test Item Value Reference Range Interpretation Comments Influ B (test code = Negative (11/10/19 11:08 Influ B) AM) [facility] [employer]AC [id number] 17:55:00 Test Item Value Reference Range Interpretation Comments Troponin-I (test code no gt See_Comment [Auto mated message] The = Troponin-I) system which g enerated this result transmit moses reference range : <=0.40. The reference r boni was not used to interpr et this result as natali l/abnormal. [facility] [employer] [id number] 17:55:00 Test Item Value Reference Range Interpretation Comments proBNP (test code = 540 See_Comment [Automa moses message] The proBNP) system which ge nerated this result tra nsmitted reference range : <=450. The reference r boni was not used to int erpret this result as natali l/abnormal. [employer] [id number] 17:55:00 Test Item Value Reference Range Interpretation Comments Albumin Lvl (test code = Albumin Lvl) 3.5 3.5-5.0 [facility] [id number] 17:55:00 Test Item Value Reference Range Interpretation Comments Total Protein (test code = Total 7.2 6.4-8.4 Protein) [facility] [id number] 17:55:00 Test Item Value Reference Range Interpretation Comments ALT (test code = ALT) 22 See_Comment [Auto mated message] The system which ge nerated this result transmit moses reference range : <=65. The reference range was not used to interpr et this result as natali l/abnormal. [employer] [id number] 17:55:00 Test Item Value Reference Range Interpretation Comments AST (test code = AST) 21 See_Comment [Auto mated message] The system which ge nerated this result transmit moses reference range : <=37. The reference range was not used to interpr et this result as natali l/abnormal. [facility]2019-08-05 17:55:00 Test Item Value Reference Range Interpretation Comments Bili Total (test code = Bili Total) 0.9 0.2-1.3 [facility]2019-08-05 17:55:00 Test Item Value Reference Range Interpretation Comments Alk Phos (test code = Alk Phos) 92 39-136 [facility]2019-08-05 17:55:00 Test Item Value Reference Range Interpretation Comments eGFR (test code = eGFR) 67 [facility]2019-08-05 17:55:00 Test Item Value Reference Range Interpretation Comments CO2 (test code = CO2) 34 24-32 [facility]2019-08-05 17:55:00 Test Item Value Reference Range Interpretation Comments Potassium Lvl (test code = Potassium 3.6 3.5-5.1 Lvl) [facility]2019-08-05 17:55:00 Test Item Value Reference Range Interpretation Comments Chloride Lvl (test code = Chloride Lvl) 100 95-109 [facility]2019-08-05 17:55:00 Test Item Value Reference Range Interpretation Comments Sodium Lvl (test code = Sodium Lvl) 140 135-145 [facility]2019-08-05 17:55:00 Test Item Value Reference Range Interpretation Comments Creatinine Lvl (test code = Creatinine 1.04 0.50-1.40 Lvl) [facility]2019-08-05 17:55:00 Test Item Value Reference Range Interpretation Comments Glucose Lvl (test code = Glucose Lvl) 107 70-99 [facility]2019-08-05 17:55:00 Test Item Value Reference Range Interpretation Comments BUN (test code = BUN) 15 7-22 [facility]2019-08-05 17:55:00 Test Item Value Reference Range Interpretation Comments Calcium Lvl (test code = Calcium Lvl) 8.5 8.5-10.5 [facility]2019-08-05 17:55:00 Test Item Value Reference Range Interpretation Comments A/G Ratio (test code = A/G Ratio) 0.9 1 0.7-1.6 [facility]2019-08-05 17:55:00 Test Item Value Reference Range Interpretation Comments Globulin (test code = Globulin) 3.7 2.7-4.2 [facility]2019-08-05 17:55:00 Test Item Value Reference Range Interpretation Comments B/C Ratio (test code = B/C Ratio) 14 1 6-25 [facility]2019-08-05 17:55:00 Test Item Value Reference Range Interpretation Comments AGAP (test code = AGAP) 9.6 10.0-20.0 [facility] CampusFgepxlcGAADCZQPRC5118-81-10 17:55:00 Test Item Value Reference Range Interpretation Comments Basophils # (test code 0.1 See_Comment [Aut omated message] The = Basophils #) system which generated this result tra nsmitted reference range : <=0.2. The reference r boni was not used to int erpret this result as normal/abnormal . [facility] CampusNrvdbnlSSLMJZKOHB3543-84-48 17:55:00 Test Item Value Reference Range Interpretation Comments Monocytes (test code = Monocytes) 22.0 2.0-12.0 [facility] CampusAdqxxigAYNAWFGXWX2858-97-18 17:55:00 Test Item Value Reference Range Interpretation Comments Lymphocytes (test code = Lymphocytes) 18.0 20.0-40.0 [facility] CampusPyqntydOCWTVDMBBA2631-45-59 17:55:00 Test Item Value Reference Range Interpretation Comments Segs (test code = Segs) 50.0 45.0-75.0 [facility] CampusJhlfqaoWAQDSEEPVR7878-15-36 17:55:00 Test Item Value Reference Range Interpretation Comments RBC Morph (test code = Normal (05/12/19 12:55 RBC Morph) PM) [facility] CampusKpcpiuzNPRBWJIMFF5289-67-28 17:55:00 Test Item Value Reference Range Interpretation Comments Lymphocytes # (test code = Lymphocytes 1.2 1.0-5.5 #) [facility] CampusNuxxwyxKFVWOCPGES1772-08-02 17:55:00 Test Item Value Reference Range Interpretation Comments Neutrophils # (test code = Neutrophils 2.6 1.5-8.1 #) [facility] CampusPnhzlnoOCIALZBRHD2279-29-62 17:55:00 Test Item Value Reference Range Interpretation Comments Monocytes # (test code 1.1 See_Comment [Aut omated message] The = Monocytes #) system which generated this result tra nsmitted reference range : <=0.8. The reference r boni was not used to int erpret this result as normal/abnormal . [facility] CampusRujblyhCCOQAQUSAR7845-61-57 17:55:00 Test Item Value Reference Range Interpretation Comments Eosinophils (test code = 10.0 See_Comment [A utomated message] The Eosinophils) system which ge nerated this result tra nsmitted reference range : <=4.0. The reference r boni was not used to int erpret this result as normal/abnormal . [facility] CampusAujpuisUEFNWTQUGF2131-12-80 17:55:00 Test Item Value Reference Range Interpretation Comments Basophils (test code = 0.0 See_Comment [Aut omated message] The Basophils) system which ge nerated this result tra nsmitted reference range : <=1.0. The reference r boni was not used to int erpret this result as normal/abnormal . [facility] CampusViwbhwzUROCTYKNZC4546-93-69 17:55:00 Test Item Value Reference Range Interpretation Comments Eosinophils # (test code 0.6 See_Comment [A utomated message] The = Eosinophils #) system whic h generated this result tra nsmitted reference range : <=0.5. The reference r boni was not used to int erpret this result as normal/abnormal . [facility]NyurolzDXHKLJYHYT7192-17-28 17:55:00 Test Item Value Reference Range Interpretation Comments Plt Morph (test code = See Note 1(05/12/19 Plt Morph) 12:55 PM) [facility] CampusGmqhznsRLBVNPNMPF6780-44-14 17:55:00 Test Item Value Reference Range Interpretation Comments Diff Comment (test code Smear review to follow = Diff Comment) [facility] CampusXvxlmfoVZUTPDGMBF6115-19-09 17:55:00 Test Item Value Reference Range Interpretation Comments PTT (test code = PTT) 42.2 s 22.9-35.8 [facility] CampusNtvaqipCELNPHGPDO8317-27-36 17:55:00 Test Item Value Reference Range Interpretation Comments MCHC (test code = MCHC) 33.9 32.0-36.0 [facility] CampusDhwchyaTYJVPXLIXK4219-07-27 17:55:00 Test Item Value Reference Range Interpretation Comments RDW (test code = RDW) 14.6 11.5-14.5 [facility] CampusWndflqxFWIYUPVGTZ3683-11-62 17:55:00 Test Item Value Reference Range Interpretation Comments RBC (test code = RBC) 4.71 4.70-6.10 [facility] CampusTlxotblWVVICYLKKO6068-46-75 17:55:00 Test Item Value Reference Range Interpretation Comments Hgb (test code = Hgb) 13.8 14.0-18.0 [facility] CampusGwhjyakUTDGKMDCKN6198-09-90 17:55:00 Test Item Value Reference Range Interpretation Comments Hct (test code = Hct) 40.7 42.0-54.0 [facility] CampusIsllxduHEHLKWCDCJ7678-20-66 17:55:00 Test Item Value Reference Range Interpretation Comments WBC (test code = WBC) 5.6 3.7-10.4 [facility] CampusQsuygkjJDJWLWYKGZ0360-53-25 17:55:00 Test Item Value Reference Range Interpretation Comments MPV (test code = MPV) 9.4 7.4-10.4 [facility] CampusGbnrlfnYMHWXBHATB2746-49-49 17:55:00 Test Item Value Reference Range Interpretation Comments MCH (test code = MCH) 29.3 pg 27.0-31.0 [facility] CampusFhhpozeLETHIKZRRA8922-85-15 17:55:00 Test Item Value Reference Range Interpretation Comments MCV (test code = MCV) 86.3 80.0-94.0 [facility] CampusLnpzgryIHNNMXIMAH6730-48-96 17:55:00 Test Item Value Reference Range Interpretation Comments Platelet (test code = Platelet) 215 133-450 [facility] CampusWtjjtawXGVQNEJQNP3608-44-88 17:55:00 Test Item Value Reference Range Interpretation Comments PT (test code = PT) 16.1 s 12.0-14.7 [facility] CampusLmztghsPPTNWKLFQQ6204-54-66 17:55:00 Test Item Value Reference Range Interpretation Comments INR (test code = INR) 1.32 1 0.85-1.17 [facility] CampusUzqkvtbSBJKHUGJDM7586-32-16 15:01:00 Test Item Value Reference Range Interpretation Comments PTT (test code = PTT) 64.3 s 22.9-35.8 [facility]2019-01-26 12:24:00 Test Item Value Reference Range Interpretation Comments Glucose Lvl (test code = Glucose Lvl) 138 70-99 [facility]2019-01-26 12:24:00 Test Item Value Reference Range Interpretation Comments BUN (test code = BUN) 20 7-22 [facility]2019-01-26 12:24:00 Test Item Value Reference Range Interpretation Comments Creatinine Lvl (test code = Creatinine 1.11 0.50-1.40 Lvl) [facility]2019-01-26 12:24:00 Test Item Value Reference Range Interpretation Comments Sodium Lvl (test code = Sodium Lvl) 140 135-145 [facility]2019-01-26 12:24:00 Test Item Value Reference Range Interpretation Comments Potassium Lvl (test code = Potassium 3.3 3.5-5.1 Lvl) [facility]2019-01-26 12:24:00 Test Item Value Reference Range Interpretation Comments Chloride Lvl (test code = Chloride Lvl) 103 95-109 [facility]2019-01-26 12:24:00 Test Item Value Reference Range Interpretation Comments CO2 (test code = CO2) 27 24-32 [facility]2019-01-26 12:24:00 Test Item Value Reference Range Interpretation Comments AGAP (test code = AGAP) 13.3 10.0-20.0 [facility]2019-01-26 12:24:00 Test Item Value Reference Range Interpretation Comments Calcium Lvl (test code = Calcium Lvl) 7.5 8.5-10.5 [facility]2019-01-26 12:24:00 Test Item Value Reference Range Interpretation Comments eGFR (test code = eGFR) 62 [facility] CampusXbmbkhdUILDIQQGCT7053-66-95 12:24:00 Test Item Value Reference Range Interpretation Comments WBC (test code = WBC) 9.6 3.7-10.4 [facility] CampusEivmiemPNPZKKNTLK9265-18-08 12:24:00 Test Item Value Reference Range Interpretation Comments RBC (test code = RBC) 4.44 4.70-6.10 [facility] CampusNacqdftLKCINEVQII9694-38-91 12:24:00 Test Item Value Reference Range Interpretation Comments Hgb (test code = Hgb) 13.0 14.0-18.0 [facility] CampusTzpcjwmQZCOSYVDYD3310-34-62 12:24:00 Test Item Value Reference Range Interpretation Comments Hct (test code = Hct) 37.8 42.0-54.0 [facility] CampusMlpowbrNZSJXYYXFT2143-00-47 12:24:00 Test Item Value Reference Range Interpretation Comments MCV (test code = MCV) 85.3 80.0-94.0 [facility] CampusPxoaurtATNBGDMGTZ3378-06-21 12:24:00 Test Item Value Reference Range Interpretation Comments MCH (test code = MCH) 29.3 pg 27.0-31.0 [facility] CampusBrkrfxhRGGRWCQURV3254-55-19 12:24:00 Test Item Value Reference Range Interpretation Comments MCHC (test code = MCHC) 34.3 32.0-36.0 [facility] CampusVhtuvzpMWKWSIZWRW0388-64-48 12:24:00 Test Item Value Reference Range Interpretation Comments RDW (test code = RDW) 14.3 11.5-14.5 [facility] CampusHibvgkrMNZZAZQHEJ2249-33-39 12:24:00 Test Item Value Reference Range Interpretation Comments Platelet (test code = Platelet) 208 133-450 [facility] CampusRptjaalJQQLVRGOGX3701-37-42 12:24:00 Test Item Value Reference Range Interpretation Comments MPV (test code = MPV) 9.7 7.4-10.4 [facility] CampusMiocbcgIYAKBCLJVZ1332-85-62 12:24:00 Test Item Value Reference Range Interpretation Comments Segs (test code = Segs) 69.9 45.0-75.0 [facility] CampusKhrpcgvMMKDHMQDEH2681-66-53 12:24:00 Test Item Value Reference Range Interpretation Comments Lymphocytes (test code = Lymphocytes) 10.0 20.0-40.0 [facility] CampusDqgkyckVFLSOVHWAC1664-83-04 12:24:00 Test Item Value Reference Range Interpretation Comments Monocytes (test code = Monocytes) 19.7 2.0-12.0 [facility] CampusVrtiereYAXRMDQEKT1748-20-18 12:24:00 Test Item Value Reference Range Interpretation Comments Eosinophils (test code = 0.2 See_Comment [A utomated message] The Eosinophils) system which ge nerated this result tra nsmitted reference range : <=4.0. The reference r boni was not used to int erpret this result as normal/abnormal . [facility] CampusQlvnnmfDYDVFJDJWJ8976-88-82 12:24:00 Test Item Value Reference Range Interpretation Comments Basophils (test code = 0.2 See_Comment [Aut omated message] The Basophils) system which ge nerated this result tra nsmitted reference range : <=1.0. The reference r boni was not used to int erpret this result as normal/abnormal . [facility] CampusMjbmftvXTEPIKVQMN4177-76-55 12:24:00 Test Item Value Reference Range Interpretation Comments Neutrophils # (test code = Neutrophils 6.7 1.5-8.1 #) [facility] CampusRksrmiiTNTRAXVXSA0598-46-41 12:24:00 Test Item Value Reference Range Interpretation Comments Lymphocytes # (test code = Lymphocytes 1.0 1.0-5.5 #) [facility] CampusImrbwkgBZREXZUVKX7519-88-55 12:24:00 Test Item Value Reference Range Interpretation Comments Monocytes # (test code 1.9 See_Comment [Aut omated message] The = Monocytes #) system which generated this result tra nsmitted reference range : <=0.8. The reference r obni was not used to int erpret this result as normal/abnormal . [facility] FTQEWCS8030-26-55 07:38:00 Test Item Value Reference Range Interpretation Comments Troponin-I (test code no gt See_Comment [Auto mated message] The = Troponin-I) system which g enerated this result transmit moses reference range : <=0.40. The reference r boni was not used to interpr et this result as natali l/abnormal. [facility] CampusHsitzfnMDVAIFPILN5998-77-21 07:38:00 Test Item Value Reference Range Interpretation Comments PTT (test code = PTT) 44.6 s 22.9-35.8 [facility] NAFZSFH1212-34-05 04:39:00 Test Item Value Reference Range Interpretation Comments Troponin-I (test code no gt See_Comment [Auto mated message] The = Troponin-I) system which g enerated this result transmit moses reference range : <=0.40. The reference r boni was not used to interpr et this result as natali l/abnormal. [facility] YWXFZYX9857-32-43 00:08:00 Test Item Value Reference Range Interpretation Comments Troponin-I (test code no gt See_Comment [Auto mated message] The = Troponin-I) system which g enerated this result transmit moses reference range : <=0.40. The reference r boni was not used to interpr et this result as natali l/abnormal. [facility] CampusXsvslacHGNVUJFKSJ2797-41-95 00:08:00 Test Item Value Reference Range Interpretation Comments PTT (test code = PTT) 31.2 s 22.9-35.8 [facility] CampusMskumqxALHCLNEZUH1781-97-66 00:08:00 Test Item Value Reference Range Interpretation Comments PT (test code = PT) 15.4 s 12.0-14.7 [facility] CampusUsekzwtUWTADMKWVJ4604-74-57 00:08:00 Test Item Value Reference Range Interpretation Comments INR (test code = INR) 1.24 1 0.85-1.17 [facility] CampusQfqdnxiIKVFOWVQUR2225-64-56 00:08:00 Test Item Value Reference Range Interpretation Comments WBC (test code = WBC) 7.5 3.7-10.4 [facility] CampusVotooqyFOCLANVBQG7126-58-94 00:08:00 Test Item Value Reference Range Interpretation Comments RBC (test code = RBC) 4.65 4.70-6.10 [facility] CampusNinjpkgPXDCWWMZJD7274-25-46 00:08:00 Test Item Value Reference Range Interpretation Comments Hgb (test code = Hgb) 13.6 14.0-18.0 [facility] CampusVzwdmrjZYGTDTUBAP5161-01-10 00:08:00 Test Item Value Reference Range Interpretation Comments Hct (test code = Hct) 39.5 42.0-54.0 [facility] CampusBafknwzRQGMQRXOYX3638-69-59 00:08:00 Test Item Value Reference Range Interpretation Comments MCV (test code = MCV) 84.9 80.0-94.0 [facility] CampusFbxihagCIEOBRVFKF5345-45-82 00:08:00 Test Item Value Reference Range Interpretation Comments MCH (test code = MCH) 29.3 pg 27.0-31.0 [facility] CampusPqmimnnZSUZAFBJXV3535-06-68 00:08:00 Test Item Value Reference Range Interpretation Comments MCHC (test code = MCHC) 34.5 32.0-36.0 [facility] CampusWpjsehmIZTVBMABWI7854-55-50 00:08:00 Test Item Value Reference Range Interpretation Comments RDW (test code = RDW) 14.0 11.5-14.5 [facility] CampusRbudlfmUAJVIUZQLY7384-50-31 00:08:00 Test Item Value Reference Range Interpretation Comments Platelet (test code = Platelet) 205 133-450 [facility] CampusKwfpzqdWGXTJLVAOP5445-91-31 00:08:00 Test Item Value Reference Range Interpretation Comments MPV (test code = MPV) 9.0 7.4-10.4 [facility] CampusBuezbovKTTTTXSIDD1263-42-29 00:08:00 Test Item Value Reference Range Interpretation Comments RBC Morph (test code = Normal (11/01/18 6:08 RBC Morph) PM) [facility] CampusApwlfbsLFTTQLHTLB5794-06-21 00:08:00 Test Item Value Reference Range Interpretation Comments Plt Morph (test code = Normal (11/01/18 6:08 Plt Morph) PM) [facility] CampusNtfshklYUPVUAYZFV5857-61-10 00:08:00 Test Item Value Reference Range Interpretation Comments Segs (test code = Segs) 47.8 45.0-75.0 [facility] CampusLbqavkgBSKQPMQQNA6615-89-93 00:08:00 Test Item Value Reference Range Interpretation Comments Lymphocytes (test code = Lymphocytes) 21.5 20.0-40.0 [facility] CampusFeijikwBOUWLCNDQN7711-11-87 00:08:00 Test Item Value Reference Range Interpretation Comments Monocytes (test code = Monocytes) 27.8 2.0-12.0 [facility] CampusXqkrnqnJDIVPJEWOP4718-39-56 00:08:00 Test Item Value Reference Range Interpretation Comments Eosinophils (test code = 2.2 See_Comment [A utomated message] The Eosinophils) system which ge nerated this result tra nsmitted reference range : <=4.0. The reference r boni was not used to int erpret this result as normal/abnormal . [facility] CampusGmrztsdDJXZILTFEP0983-03-91 00:08:00 Test Item Value Reference Range Interpretation Comments Basophils (test code = 0.7 See_Comment [Aut omated message] The Basophils) system which ge nerated this result tra nsmitted reference range : <=1.0. The reference r boni was not used to int erpret this result as normal/abnormal . [facility] CampusByfoyskQSKKOVCVQZ9304-80-91 00:08:00 Test Item Value Reference Range Interpretation Comments Neutrophils # (test code = Neutrophils 3.6 1.5-8.1 #) [facility] CampusYyjhsqqPLYGNQPBEM7755-65-17 00:08:00 Test Item Value Reference Range Interpretation Comments Lymphocytes # (test code = Lymphocytes 1.6 1.0-5.5 #) [facility] CampusHugwajqWDWDTZCHQX9881-60-66 00:08:00 Test Item Value Reference Range Interpretation Comments Monocytes # (test code 2.1 See_Comment [Aut omated message] The = Monocytes #) system which generated this result tra nsmitted reference range : <=0.8. The reference r boni was not used to int erpret this result as normal/abnormal . [facility] CampusMbzijjbLKXCCOWZFP7750-05-76 00:08:00 Test Item Value Reference Range Interpretation Comments Eosinophils # (test code 0.2 See_Comment [A utomated message] The = Eosinophils #) system whic h generated this result tra nsmitted reference range : <=0.5. The reference r boni was not used to int erpret this result as normal/abnormal . [facility] CampusEbbmtkmARHSLXIKYN5380-79-73 00:08:00 Test Item Value Reference Range Interpretation Comments Basophils # (test code 0.1 See_Comment [Aut omated message] The = Basophils #) system which generated this result tra nsmitted reference range : <=0.2. The reference r boni was not used to int erpret this result as normal/abnormal . [facility] DQEJWKH5061-50-09 19:43:00 Test Item Value Reference Range Interpretation Comments proBNP (test code = 7232 See_Comment [Automa moses message] The proBNP) system which ge nerated this result tra nsmitted reference range : <=450. The reference r boni was not used to int erpret this result as natali l/abnormal. [facility] HQMBJ3277-[facility] 19:43:00 Test Item Value Reference Range Interpretation Comments A/G Ratio (test code = A/G Ratio) 0.9 1 0.7-1.6 [facility] JGJUS2745-40-28 19:43:00 Test Item Value Reference Range Interpretation Comments AGAP (test code = AGAP) 12.5 10.0-20.0 [facility] XKIQT8622-17-23 19:43:00 Test Item Value Reference Range Interpretation Comments Globulin (test code = Globulin) 4.1 2.7-4.2 [facility] UEWIS9780-51-73 19:43:00 Test Item Value Reference Range Interpretation Comments B/C Ratio (test code = B/C Ratio) 11 1 6-25 [facility] VYYIS4433-08-62 19:43:00 Test Item Value Reference Range Interpretation Comments eGFR (test code = eGFR) 37 [facility] JYNUK4720-44-16 19:43:00 Test Item Value Reference Range Interpretation Comments Calcium Lvl (test code = Calcium Lvl) 8.4 8.5-10.5 [facility]2019-01-25 19:43:00 Test Item Value Reference Range Interpretation Comments CO2 (test code = CO2) 29 24-32 [facility]2019-01-25 19:43:00 Test Item Value Reference Range Interpretation Comments Creatinine Lvl (test code = Creatinine 1.70 0.50-1.40 Lvl) [facility]2019-01-25 19:43:00 Test Item Value Reference Range Interpretation Comments ALT (test code = ALT) 25 See_Comment [Auto mated message] The system which ge nerated this result transmit moses reference range : <=65. The reference range was not used to interpr et this result as natali l/abnormal. [facility]2019-01-25 19:43:00 Test Item Value Reference Range Interpretation Comments Albumin Lvl (test code = Albumin Lvl) 3.8 3.5-5.0 [facility]2019-01-25 19:43:00 Test Item Value Reference Range Interpretation Comments Total Protein (test code = Total 7.9 6.4-8.4 Protein) [facility]2019-01-25 19:43:00 Test Item Value Reference Range Interpretation Comments Bili Total (test code = Bili Total) 0.9 0.2-1.3 [facility]2019-01-25 19:43:00 Test Item Value Reference Range Interpretation Comments AST (test code = AST) 16 See_Comment [Auto mated message] The system which ge nerated this result transmit moses reference range : <=37. The reference range was not used to interpr et this result as natali l/abnormal. [facility]2019-01-25 19:43:00 Test Item Value Reference Range Interpretation Comments BUN (test code = BUN) 18 7-22 [facility]2019-01-25 19:43:00 Test Item Value Reference Range Interpretation Comments Glucose Lvl (test code = Glucose Lvl) 129 70-99 [facility]2019-01-25 19:43:00 Test Item Value Reference Range Interpretation Comments Sodium Lvl (test code = Sodium Lvl) 138 135-145 [place] 362749-01-25 19:43:00 Test Item Value Reference Range Interpretation Comments Potassium Lvl (test code = Potassium 3.5 3.5-5.1 Lvl) [facility]2019-01-25 19:43:00 Test Item Value Reference Range Interpretation Comments Chloride Lvl (test code = Chloride Lvl) 100 95-109 [facility]2019-01-25 19:43:00 Test Item Value Reference Range Interpretation Comments Alk Phos (test code = Alk Phos) 89 39-136 [facility]RxkqnbhZMCAZQDSRCVP7806-08-99 19:43:00 Test Item Value Reference Range Interpretation Comments AGAP (test code = AGAP) 12.5 10.0-20.0 [facility] HospitalNlsvwhbCFXVCWOIEKWI3280-79-42 19:43:00 Test Item Value Reference Range Interpretation Comments B/C Ratio (test code = B/C Ratio) 11 1 6-25 [facility] HospitalMdbfcxhWGQMWTOLOGMW6284-73-69 19:43:00 Test Item Value Reference Range Interpretation Comments Globulin (test code = Globulin) 4.1 2.7-4.2 [facility] HospitalLtojwczUENYZZEXBBGC0896-96-19 19:43:00 Test Item Value Reference Range Interpretation Comments A/G Ratio (test code = A/G Ratio) 0.9 1 0.7-1.6 [facility] HospitalQwfjozlWECPFWWMXERX5368-17-57 19:43:00 Test Item Value Reference Range Interpretation Comments Alk Phos (test code = Alk Phos) 89 39-136 [facility] HospitalJccredeKEMRUJDDFPTL3455-89-62 19:43:00 Test Item Value Reference Range Interpretation Comments Sodium Lvl (test code = Sodium Lvl) 138 135-145 [facility] HospitalNkciolrUQLKDHXIFESY8016-15-43 19:43:00 Test Item Value Reference Range Interpretation Comments Potassium Lvl (test code = Potassium 3.5 3.5-5.1 Lvl) [facility] HospitalRkrhfzaSGDXPFZGKQBI2386-10-57 19:43:00 Test Item Value Reference Range Interpretation Comments Chloride Lvl (test code = Chloride Lvl) 100 95-109 [facility] HospitalDhyoepaVDBCGJZSLZTY1219-92-67 19:43:00 Test Item Value Reference Range Interpretation Comments Glucose Lvl (test code = Glucose Lvl) 129 70-99 [facility] HospitalXyhoqjhRKJPURWGBCSD6026-72-87 19:43:00 Test Item Value Reference Range Interpretation Comments BUN (test code = BUN) 18 7-22 [facility] HospitalVgedrniGINXIQHPHVQY0925-42-77 19:43:00 Test Item Value Reference Range Interpretation Comments Creatinine Lvl (test code = Creatinine 1.70 0.50-1.40 Lvl) [facility] HospitalAurndtuWKRNLAZVTARU9614-06-19 19:43:00 Test Item Value Reference Range Interpretation Comments CO2 (test code = CO2) 29 24-32 [facility] HospitalSspqtrzIWUQMUXXLCJQ0762-79-53 19:43:00 Test Item Value Reference Range Interpretation Comments Calcium Lvl (test code = Calcium Lvl) 8.4 8.5-10.5 [facility] HospitalBgmsbgwUCXEPKUJQXKA2172-85-31 19:43:00 Test Item Value Reference Range Interpretation Comments Total Protein (test code = Total 7.9 6.4-8.4 Protein) [facility] HospitalLiagshuCJTIHUQLKYOB5855-70-85 19:43:00 Test Item Value Reference Range Interpretation Comments Albumin Lvl (test code = Albumin Lvl) 3.8 3.5-5.0 [facility] HospitalFaaegaxGJPBQRHZUAEJ8446-51-14 19:43:00 Test Item Value Reference Range Interpretation Comments ALT (test code = ALT) 25 See_Comment [Auto mated message] The system which ge nerated this result transmit moses reference range : <=65. The reference range was not used to interpr et this result as natali l/abnormal. [facility] HospitalLdjugdlKIMDBPFFKYAF1595-58-99 19:43:00 Test Item Value Reference Range Interpretation Comments AST (test code = AST) 16 See_Comment [Auto mated message] The system which ge nerated this result transmit moses reference range : <=37. The reference range was not used to interpr et this result as natali l/abnormal. [facility] HospitalWrqvjhgJHUVOXVSPZTV1138-56-71 19:43:00 Test Item Value Reference Range Interpretation Comments Bili Total (test code = Bili Total) 0.9 0.2-1.3 [facility] HospitalJngrmsqFPRHSRKXBAFB8817-80-35 19:43:00 Test Item Value Reference Range Interpretation Comments eGFR (test code = eGFR) 37 [facility] SystemVvftcudPEIGJSATMH7889-22-64 19:43:00 Test Item Value Reference Range Interpretation Comments WBC (test code = WBC) 8.4 3.7-10.4 [facility] CampusLpsvjqjTXAUEJYJOG9368-70-82 19:43:00 Test Item Value Reference Range Interpretation Comments RBC (test code = RBC) 5.18 4.70-6.10 [facility] CampusEphqwndZHYOHDTJWF4796-89-59 19:43:00 Test Item Value Reference Range Interpretation Comments Hgb (test code = Hgb) 15.2 14.0-18.0 [facility] CampusLboaryqQVNJNBNMZY2482-94-33 19:43:00 Test Item Value Reference Range Interpretation Comments Hct (test code = Hct) 44.4 42.0-54.0 [facility] CampusMvzeggbYKNJFYLRVP8114-58-07 19:43:00 Test Item Value Reference Range Interpretation Comments MCV (test code = MCV) 85.6 80.0-94.0 [facility] CampusPwxftpnWDGBMVFZGN7842-08-75 19:43:00 Test Item Value Reference Range Interpretation Comments MCH (test code = MCH) 29.2 pg 27.0-31.0 [facility] CampusZjxldrnKPFWCJBJEN9410-26-91 19:43:00 Test Item Value Reference Range Interpretation Comments MCHC (test code = MCHC) 34.1 32.0-36.0 [facility] CampusImxtwblYGABCBOPWS1382-23-08 19:43:00 Test Item Value Reference Range Interpretation Comments RDW (test code = RDW) 14.3 11.5-14.5 [facility] CampusQadbwdnOHWEVBOROM8943-82-00 19:43:00 Test Item Value Reference Range Interpretation Comments Platelet (test code = Platelet) 233 133-450 [facility] CampusOqzunylUSMMKHVRZJ7807-10-15 19:43:00 Test Item Value Reference Range Interpretation Comments MPV (test code = MPV) 9.0 7.4-10.4 [facility] [id number] 19:43:00 Test Item Value Reference Range Interpretation Comments Neutrophils # (test code = Neutrophils 4.5 1.5-8.1 #) [id number] 19:43:00 Test Item Value Reference Range Interpretation Comments Lymphocytes # (test code = Lymphocytes 2.0 1.0-5.5 #) [facility] [id number] 19:43:00 Test Item Value Reference Range Interpretation Comments Monocytes # (test code 1.8 See_Comment [Aut omated message] The = Monocytes #) system which generated this result tra nsmitted reference range : <=0.8. The reference r boni was not used to int erpret this result as normal/abnormal . [facility] [id number] 19:43:00 Test Item Value Reference Range Interpretation Comments Segs (test code = Segs) 54.0 45.0-75.0 [facility] Camp[id number] 19:43:00 Test Item Value Reference Range Interpretation Comments Bands (test code = 0.0 See_Comment [Automat ed message] The Bands) system which ge nerated this result transmit moses reference range : <=11.0. The reference r boni was not used to interpr et this result as natali l/abnormal. [facility] [id number] 19:43:00 Test Item Value Reference Range Interpretation Comments Lymphocytes (test code = Lymphocytes) 17.0 20.0-40.0 [facility] [id number] 19:43:00 Test Item Value Reference Range Interpretation Comments Monocytes (test code = Monocytes) 22.0 2.0-12.0 [facility] Camp[id number] 19:43:00 Test Item Value Reference Range Interpretation Comments Atypical Lymphs (test code = Atypical 7.0 Lymphs) [facility] Camp[id number] 19:43:00 Test Item Value Reference Range Interpretation Comments RBC Morph (test code = Normal (11/01/18 1:43 RBC Morph) PM) [facility] CampusPdhcrksSNICDPNSWN7492-06-03 19:43:00 Test Item Value Reference Range Interpretation Comments Plt Morph (test code = Normal (11/01/18 1:43 Plt Morph) PM) [facility] [id number] 14:44:00Surgical Pathology Report Case: [id number] Authorizing Provider: Chetan Mcmillan MD Collected: 02/06/2018 1033 Ordering Location: [facility] Received: 02/06/2018 1330 SERVICES Pathologist: Nanda Rosenthal MD Specimens: A) - Hydrocele Sac, left B) - Hydrocele Sac, right A. SCROTAL REGION, LEFT SIDE, EXCISION OF HYDROCELE SAC: - HYDROCELE SACB. SCROTAL REGION, RIGHT SIDE, EXCISION OF HYDROCELE SAC: - HYDROCELE SAC Signing Pathologist Direct Phone Line: [phone] signed by Nanda Rosenthal MD on 02/08/2018 at 2:44 PMMO/[id number] bilateralA. Left hydrocele sac; B. Right hydrocele sacA. The specimen is labeled "left hydrocele sac" consists of multiple fragments of blue-purple fibromembranous tissue measuring 5 x 2.5 x 2 cm in aggregate. [employer] sections are submitted A1. B. The specimen is labeled "right hydrocele sac" consists of hirsch-pinkmembranous tissue measuring 2.5 x 2 x 1 cm in aggregate. Grossly, no suspicious areas are seen. [employer] sections are submitted B1. CG/pl A and B: The left hydrocele sac designated hydrocele sac shows features consistent with those structures throughout. There is a bland lining of mesothelial type cells, with adjjacent connective, vascular, and smooth muscular elements. Atypia is not noted.URINALYSIS W/ REFLEX URINE [id number] 21:01:00 Test Item Value Reference Range Interpretation Comments COLOR (BEAKER) (test code = Yellow 470) CLARITY (BEAKER) (test code = Clear 469) SPECIFIC GRAVITY UA (BEAKER) 1.010 1.001-1.035 (test code = 468) PH UA (BEAKER) (test code = 6.5 5.0-8.0 467) PROTEIN UA (BEAKER) (test code Negative Negative = 464) GLUCOSE UA (BEAKER) (test code Negative Negative = 365) KETONES UA (BEAKER) (test code Negative Negative = 371) BILIRUBIN UA (BEAKER) (test Negative Negative code = 462) BLOOD UA (BEAKER) (test code = Negative Negative 461) NITRITE UA (BEAKER) (test code Negative Negative = 465) LEUKOCYTE ESTERASE UA (BEAKER) Negative Negative (test code = 466) UROBILINOGEN UA (BEAKER) (test 0.2 mg/dL 0.2-1.0 code = 463) RBC UA-MANUAL (BEAKER) (test <5 /HPF code = 1659) WBC UA-MANUAL (BEAKER) (test None Seen /HPF code = 1661) SOURCE(BEAKER) (test code = 2795) BASIC METABOLIC [id number] 16:57:00 Test Item Value Reference Range Interpretation Comments SODIUM (BEAKER) 140 meq/L 136-145 (test code = 381) POTASSIUM (BEAKER) 3.7 meq/L 3.5-5.1 (test code = 379) CHLORIDE (BEAKER) 104 meq/L 98-107 (test code = 382) CO2 (BEAKER) (test 27 meq/L 22-29 code = 355) BLOOD UREA NITROGEN 19 mg/dL 7-21 (BEAKER) (test code = 354) CREATININE (BEAKER) 0.85 mg/dL 0.57-1.25 (test code = 358) GLUCOSE RANDOM 92 mg/dL 70-105 (BEAKER) (test code = 652) CALCIUM (BEAKER) 8.9 mg/dL 8.4-10.2 (test code = 697) EGFR (BEAKER) (test 87 mL/min/1.73 ESTIMA MOSES GFR IS code = 1092) sq m NOT ACCURATE CREATININE CLEARANCE IN PREDICTING GLOMERULAR FILTRATION RATE . ESTIMATED GFR I S NOT APPLICABLE FOR DIALYSIS PATIEN TS. [id number] 16:37:00 Test Item Value Reference Range Interpretation Comments HEMOGLOBIN (BEAKER) (test code = 13.5 GM/DL 13.7-17.5 L 410) CHEM [id number] 20:37:00 Test Item Value Reference Range Interpretation Comments eGFR (test code = eGFR) 90 [facility] OfuzannCHEM [id number] 20:37:00 Test Item Value Reference Range Interpretation Comments Bili Total (test code = Bili Total) 0.6 0.2-1.3 [facility] [id number] 20:37:00 Test Item Value Reference Range Interpretation Comments Total Protein (test code = Total 7.7 6.4-8.4 Protein) [facility] OfuzannCHEM [id number] 20:37:00 Test Item Value Reference Range Interpretation Comments Calcium Lvl (test code = Calcium Lvl) 8.6 8.5-10.5 [facility] OfuzannCHEM [id number] 20:37:00 Test Item Value Reference Range Interpretation Comments CO2 (test code = CO2) 31 24-32 [facility] OfuzannCHEM [id number] 20:37:00 Test Item Value Reference Range Interpretation Comments Chloride Lvl (test code = Chloride Lvl) 103 95-109 [facility]2018-01-02 20:37:00 Test Item Value Reference Range Interpretation Comments Alk Phos (test code = Alk Phos) 92 39-136 [facility]2018-01-02 20:37:00 Test Item Value Reference Range Interpretation Comments ALANINE AMINOTRANSFERASE 25 See_Comment [A utomated message] (test code = ALANINE The sys tem which AMINOTRANSFERASE) generated this result transmitted ref erence range: <=65. Th e reference range was not used to int erpret this result as normal/abnormal . [facility]2018-01-02 20:37:00 Test Item Value Reference Range Interpretation Comments ASPARTATE TRANSAMINASE 18 See_Comment [Aut omated message] (test code = ASPARTATE The s ystem which TRANSAMINASE) generated this result transmitted ref erence range: <=37. Th e reference range was not used to interpr et this result as normal/abnormal . [facility]2018-01-02 20:37:00 Test Item Value Reference Range Interpretation Comments Sodium Lvl (test code = Sodium Lvl) 138 135-145 [facility]2018-01-02 20:37:00 Test Item Value Reference Range Interpretation Comments Albumin Lvl (test code = Albumin Lvl) 3.9 3.5-5.0 [facility]2018-01-02 20:37:00 Test Item Value Reference Range Interpretation Comments BUN (test code = BUN) 15 7-22 [facility]2018-01-02 20:37:00 Test Item Value Reference Range Interpretation Comments Potassium Lvl (test code = Potassium 3.7 3.5-5.1 Lvl) [facility]2018-01-02 20:37:00 Test Item Value Reference Range Interpretation Comments Creatinine Lvl (test code = Creatinine 0.70 0.50-1.40 Lvl) [facility]2018-01-02 20:37:00 Test Item Value Reference Range Interpretation Comments Glucose Lvl (test code = Glucose Lvl) 87 70-99 [facility]2018-01-02 20:37:00 Test Item Value Reference Range Interpretation Comments B/C Ratio (test code = B/C Ratio) 21 6-25 [facility]2018-01-02 20:37:00 Test Item Value Reference Range Interpretation Comments AGAP (test code = AGAP) 7.7 10.0-20.0 [facility] [id number] 20:37:00 Test Item Value Reference Range Interpretation Comments A/G Ratio (test code = A/G Ratio) 1.0 0.7-1.6 [facility] [id number] 20:37:00 Test Item Value Reference Range Interpretation Comments Globulin (test code = Globulin) 3.8 2.7-4.2 [facility] [id number] 20:37:00 Test Item Value Reference Range Interpretation Comments Hgb (test code = Hgb) 13.8 14.0-18.0 [facility] [id number] 20:37:00 Test Item Value Reference Range Interpretation Comments RBC X 10x6 (test code = RBC X 10x6) 4.81 4.70-6.10 [facility] [id number] 20:37:00 Test Item Value Reference Range Interpretation Comments WBC X 10x3 (test code = WBC X 10x3) 7.0 3.7-10.4 [facility] [id number] 20:37:00 Test Item Value Reference Range Interpretation Comments MCV (test code = MCV) 85.6 80.0-94.0 [facility] C[id number] 20:37:00 Test Item Value Reference Range Interpretation Comments MCH (test code = MCH) 28.8 pg 27.0-31.0 [facility] [id number] 20:37:00 Test Item Value Reference Range Interpretation Comments MCHC (test code = MCHC) 33.6 32.0-36.0 [facility] [id number] 20:37:00 Test Item Value Reference Range Interpretation Comments Platelet (test code = Platelet) 290 133-450 [facility] Camp[id number] 20:37:00 Test Item Value Reference Range Interpretation Comments MPV (test code = MPV) 8.9 7.4-10.4 [facility] [id number] 20:37:00 Test Item Value Reference Range Interpretation Comments RDW (test code = RDW) 13.8 11.5-14.5 [facility] [id number] 20:37:00 Test Item Value Reference Range Interpretation Comments Hct (test code = Hct) 41.2 42.0-54.0 [facility] CampusXaqdxkeAMTKXOUUGC5477-93-85 20:37:00 Test Item Value Reference Range Interpretation Comments Eosinophils # (test code 0.6 See_Comment [A utomated message] The = Eosinophils #) system whic h generated this result tra nsmitted reference range : <=0.5. The reference r boni was not used to int erpret this result as normal/abnormal . [facility] CampusSvavgcyNMTJKIZSHE4852-01-49 20:37:00 Test Item Value Reference Range Interpretation Comments Monocytes # (test code 0.8 See_Comment [Aut omated message] The = Monocytes #) system which generated this result tra nsmitted reference range : <=0.8. The reference r boni was not used to int erpret this result as normal/abnormal . [facility] Camp[id number] 20:37:00 Test Item Value Reference Range Interpretation Comments Lymphocytes # (test code = Lymphocytes 1.7 1.0-5.5 #) [facility] CampusOlmnxfhJAWXSBAQYC6982-12-07 20:37:00 Test Item Value Reference Range Interpretation Comments Segs-Bands # (test code = Segs-Bands #) 3.9 1.5-8.1 [facility] Camp[id number] 20:37:00 Test Item Value Reference Range Interpretation Comments Basophils (test code = 0.9 See_Comment [Aut omated message] The Basophils) system which ge nerated this result tra nsmitted reference range : <=1.0. The reference r boni was not used to int erpret this result as normal/abnormal . [facility] [id number] 20:37:00 Test Item Value Reference Range Interpretation Comments Basophils # (test code 0.1 See_Comment [Aut omated message] The = Basophils #) system which generated this result tra nsmitted reference range : <=0.2. The reference r boni was not used to int erpret this result as normal/abnormal . [facility] [id number] 20:37:00 Test Item Value Reference Range Interpretation Comments Monocytes (test code = Monocytes) 11.0 2.0-12.0 [facility] [id number] 20:37:00 Test Item Value Reference Range Interpretation Comments Eosinophils (test code = 8.3 See_Comment [A utomated message] The Eosinophils) system which ge nerated this result tra nsmitted reference range : <=4.0. The reference r boni was not used to int erpret this result as normal/abnormal . [facility] C[id number] 20:37:00 Test Item Value Reference Range Interpretation Comments Segs (test code = Segs) 55.4 45.0-75.0 [facility] CampusGvlgspbQWXIIJSQII6568-01-92 20:37:00 Test Item Value Reference Range Interpretation Comments Lymphocytes (test code = Lymphocytes) 24.4 20.0-40.0 [facility] AND [id number] 18:50:00 Test Item Value Reference Range Interpretation Comments UA WBC (test code = UA WBC) 0-2 /HPF [facility] AND [id number] 18:50:00 Test Item Value Reference Range Interpretation Comments UA RBC (test code = 0-2 /HPF See_Comment [Automa moses message] The UA RBC) system which ge nerated this result tra nsmitted reference range : <=2. The reference range was not used to interpr et this result as natali l/abnormal. [facility] AND [id number] 18:50:00 Test Item Value Reference Range Interpretation Comments UA Sq Epi (test code = UA Sq Epi) Rare /LPF [facility] AND [id number] 18:50:00 Test Item Value Reference Range Interpretation Comments UA Bacteria (test code = None Seen (10/09/17 UA Bacteria) 12:50 PM) [facility] AND [id number] 18:50:00 Test Item Value Reference Range Interpretation Comments UA Color (test code = Yellow *NA*(10/09/17 UA Color) 12:50 PM) [facility] AND [id number] 18:50:00 Test Item Value Reference Range Interpretation Comments UA Turbidity (test code = Clear (10/09/17 12:50 UA Turbidity) PM) [facility] AND [id number] 18:50:00 Test Item Value Reference Range Interpretation Comments UA Protein (test code = UA Negative mg/dL Protein) [facility] AND [id number] 18:50:00 Test Item Value Reference Range Interpretation Comments UA Glucose (test code = UA Negative mg/dL Glucose) [facility] AND [id number] 18:50:00 Test Item Value Reference Range Interpretation Comments UA Spec Grav (test code = UA Spec 1.015 1 Grav) [facility] AND [id number] 18:50:00 Test Item Value Reference Range Interpretation Comments UA pH (test code = UA pH) 6.0 1 5.0-8.0 [facility] AND [id number] 18:50:00 Test Item Value Reference Range Interpretation Comments UA Bili (test code = Negative *NA*(10/09/17 UA Bili) 12:50 PM) [facility] AND [id number] 18:50:00 Test Item Value Reference Range Interpretation Comments UA Blood (test code = Negative (10/09/17 12:50 UA Blood) PM) [facility] AND [id number] 18:50:00 Test Item Value Reference Range Interpretation Comments UA Ketones (test code = UA Negative mg/dL Ketones) [facility] AND [id number] 18:50:00 Test Item Value Reference Range Interpretation Comments UA Leuk Est (test Negative (10/09/17 12:50 code = UA Leuk Est) PM) [facility] AND [id number] 18:50:00 Test Item Value Reference Range Interpretation Comments UA Nitrite (test code Negative (10/09/17 12:50 = UA Nitrite) PM) [facility] AND [id number] 18:50:00 Test Item Value Reference Range Interpretation Comments UA Urobilinogen (test code = UA 0.2 0.1-1.0 Urobilinogen) [facility]
[2023-02-27 04:11] LABS: Specific Gravity 1.011 (1.005-1.030); Urine Bilirubin NEGATIVE (Negative); Urine Blood Negative (Negative); Urine Clarity Clear (Clear); Urine Color Light-Yellow (Yellow); Urine Glucose NEGATIVE (Negative); Urine Protein NEGATIVE (Negative); Urine Urobilinogen Normal (Normal)
--- NOTE | 2023-02-27 05:28 | EDPHYS ---
Physician Documentation [facility] Name: Sin Aguilera Age: 82 yrs Sex: Male : 1940 Arrival Date: 02/27/2023 Time: 03:08 Bed 7 Private MD: ED Physician Eric Farrell HPI: 02/27 03:29 This 82 yrs old Male presents to ER via Ambulatory with complaints of Urinary sp4 Retention. 05:23 82-year-old female presents with acute urinary retention similar to the one he had in sp4 the past. Patient states moderate to severe bladder pain inability to urinate for the past several hours. Patient has history of BPH she is on tamsulosin daily. Patient [facility] at [facility] with urologist there. Historical: - Allergies: 03:29 Codeine; kl - Home Meds: 03:29 Nexium 40 mg Oral cpDR 1 cap once daily [Active]; aspirin 81 mg Oral chew 1 tab once kl daily [Active]; tamsulosin 0.4 mg Oral cp24 1 cap twice a day [Active]; nitroglycerin 0.4 mg SL subl 1 tab every 5 minutes for Angina [Active]; Praluent Pen 75 mg/mL subcutaneous Pen Injector every 2 weeks [Active]; levothyroxine 50 mcg oral capsule 1 cap daily [Active]; Eliquis 2.5 mg oral tablet 1 tab daily [Active]; Gemtesa 75 mg oral tablet daily [Active]; metoprolol tartrate 50 mg oral tablet [Active]; amlodipine 10 mg tablet daily [Active]; valsartan-hydrochlorothiazide 160-12.5 mg oral tablet daily [Active]; - PMHx: 03:29 CHF; Hyperlipidemia; Hypertension; Hypothyroidism; prostate enlarge; atrial fib; kl - PSHx: 03:29 pacemaker; heart stent; kl - Family history:: not pertinent. ROS: 05:23 Constitutional: Negative for fever, chills, and weight loss, Eyes: Negative for injury, sp4 pain, redness, and discharge, ENT: Negative for injury, pain, and discharge, Neck: Negative for injury, pain, and swelling, Cardiovascular: Negative for chest pain, palpitations, and edema, Respiratory: Negative for shortness of breath, cough, wheezing, and pleuritic chest pain, Abdomen/GI: Negative for abdominal pain, nausea, vomiting, diarrhea, and constipation, Back: Negative for injury and pain, : Negative for injury, bleeding, discharge positive for moderate to severe urinary bladder pain, inability to urinate for the past several hours MS/Extremity: Negative for injury and deformity, Skin: Negative for injury, rash, and discoloration, Neuro: Negative for headache, weakness, numbness, tingling, and seizure, Psych: Negative for depression, anxiety, Allergy/Immunology: Negative for hives, rash, and allergies Endocrine: Negative for neck swelling, polydipsia, polyuria, polyphagia, and weight changes Hematologic/Lymphatic: Negative for swollen nodes, abnormal bleeding, and unusual bruising Exam: 05:23 Constitutional: This is a well developed, well nourished patient who is awake, alert, sp4 uncomfortable appearing male, in moderate distress secondary to pain. Head/Face: Normocephalic, atraumatic. Eyes: Pupils equal round and reactive to light, extra-ocular motions intact. Lids and lashes normal. Conjunctiva and sclera are not injected. Cornea within normal limits. Periorbital areas with no swelling, redness, or edema. ENT: Nares patent. No nasal discharge, no septal abnormalities noted. Tympanic membranes are normal and external auditory canals are clear. Oropharynx with no redness, swelling, or masses, exudates, or evidence of obstruction, uvula midline. Mucous membranes moist. Neck: Trachea midline, no thyromegaly or masses palpated, and no cervical lymphadenopathy. Supple, full range of motion without nuchal rigidity, or vertebral point tenderness. No Meningismus. Chest/axilla: Normal chest wall appearance and motion. Nontender with no deformity. No lesions are appreciated. Cardiovascular: Regular rate and rhythm with a normal S1 and S2. No gallops, murmurs, or rubs. Normal PMI, no JVD. No pulse deficits. Respiratory: Lungs have equal breath sounds bilaterally, clear to auscultation and percussion. No rales, rhonchi or wheezes noted. No increased work of breathing, no retractions or nasal flaring. Abdomen/GI: Soft, non-tender, with normal bowel sounds. No distension or tympany. No guarding or rebound. No evidence of tenderness throughout. Back: No spinal tenderness. No costovertebral tenderness. Male : Normal genitalia with no discharge or lesions. Circumcised male, urinary bladder distention on exam, Harrison catheter placed on exam. Skin: Warm, dry with normal turgor. Normal color with no rashes, no lesions, and no evidence of cellulitis. MS/ Extremity: Pulses equal, no cyanosis. Neurovascular intact. Full, normal range of motion. Neuro: Awake and alert, GCS 15, oriented to person, place, time, and situation. Cranial nerves II-XII grossly intact. Motor strength 5/5 in all extremities. Sensory grossly intact. Psych: Awake, alert, with orientation to person, place and time. Behavior, mood, and affect are within normal limits Vital Signs: 03:27 BP 163 / 78; Pulse 82; Resp 18; Temp 97.9; Pulse Ox 95% on R/A; Weight 101.15 kg (M); kl Height 5 ft. 11 in. ; Pain 10/10; 05:00 BP 147 / 88; Pulse 69; Pulse Ox 94% ; vc1 03:27 Body Mass Index 31.10 (101.15 kg, 180.34 cm) kl 03:27 Pain Scale: Adult kl MDM: 03:54 Patient medically screened. sp4 05:23 Differential Diagnosis Acute urinary retention, acute UTI, BPH, acute urethral sp4 obstruction. Data reviewed: vital signs, nurses notes, old medical records, lab test result(s), urinalysis. ED course: Urinary catheter was placed and 1.2 L clear urine evacuated, urinalysis normal, patient felt much better, we advised urology follow-up in 2 weeks for voiding trial in office. 02/27 03:30 Order name: Urinalysis w/ reflexes sp4 02/27 03:55 Order name: Leg Bag; Complete Time: 04:28 sp4 02/27 03:55 Order name: Harrison; Complete Time: 04:01 sp4 Administered Medications: No medications were administered Disposition Summary: 02/27/23 05:28 Discharge Ordered Location: Home sp4 Problem: new sp4 Symptoms: have improved sp4 Condition: Stable sp4 Diagnosis - Acute urinary retention, history of BPH sp4 Followup: sp4 - With: Jabier Taveras MD - When: 10 - 14 days - Reason: Recheck today's complaints Discharge Instructions: - Discharge Summary Sheet sp4 - Acute Urinary Retention, Male, Nylz-zq-Bgon sp4 Signatures: Dispatcher [employer] Merle Wright RN RN Eric Madera MD MD sp4 Corrections: (The following items were deleted from the chart) 04:06 03:30 IV Saline Lock ordered. sp4 vc1 04:06 03:30 Labs collected and sent ordered. sp4 vc1 04:09 03:30 COMPREHENSIVE METABOLIC PANEL+C.LAB.BRZ ordered. EDMS EDMS 04:09 03:30 LIPASE+C.LAB.BRZ ordered. EDMS EDMS 04:10 03:30 CBC+H.LAB.BRZ ordered. EDMS EDMS 04:17 03:30 Abdomen Pelvis Wo Con+CT.RAD.BRZ ordered. EDMS EDMS
--- NOTE | 2023-02-27 05:28 | ER ---
Nurse's Notes [facility] Name: Sin Aguilera Age: 82 yrs Sex: Male : 1940 Arrival Date: 02/27/2023 Time: 03:08 Bed 7 Private MD: Diagnosis: Acute urinary retention, history of BPH Presentation: 02/27 03:27 Chief complaint: Patient states: difficulty urinating x 2 days recently was seen by urologist for frequency reports now having difficulty urinating. Coronavirus screen: Vaccine status: Patient reports receiving the 2nd dose of the covid vaccine. Ebola Screen: Patient denies exposure to infectious person. Initial Sepsis Screen: Does the patient meet any 2 criteria? No. Patient's initial sepsis screen is negative. Does the patient have a suspected source of infection? No. Patient's initial sepsis screen is negative. Risk Assessment: Do you want to hurt yourself or someone else? Patient reports no desire to harm self or others. 03:27 Method Of Arrival: Ambulatory 03:27 Acuity: ANGIE 3 kl Triage Assessment: 03:35 General: Appears uncomfortable, well groomed, well developed, Behavior is calm, kl cooperative. Pain: Complains of pain in abdomen. Historical: - Allergies: 03:29 Codeine; - Home Meds: 03:29 Nexium 40 mg Oral cpDR 1 cap once daily [Active]; aspirin 81 mg Oral chew 1 tab once kl daily [Active]; tamsulosin 0.4 mg Oral cp24 1 cap twice a day [Active]; nitroglycerin 0.4 mg SL subl 1 tab every 5 minutes for Angina [Active]; Praluent Pen 75 mg/mL subcutaneous Pen Injector every 2 weeks [Active]; levothyroxine 50 mcg oral capsule 1 cap daily [Active]; Eliquis 2.5 mg oral tablet 1 tab daily [Active]; Gemtesa 75 mg oral tablet daily [Active]; metoprolol tartrate 50 mg oral tablet [Active]; amlodipine 10 mg tablet daily [Active]; valsartan-hydrochlorothiazide 160-12.5 mg oral tablet daily [Active]; - PMHx: 03:29 CHF; Hyperlipidemia; Hypertension; Hypothyroidism; prostate enlarge; atrial fib; kl - PSHx: 03:29 pacemaker; heart stent; - Family history:: not pertinent. Screenin:30 [facility] ED Fall Risk Assessment (Adult) History of falling in the last 3 months, vc1 including since admission No falls in past 3 months (0 pts) Confusion or Disorientation No (0 pts) Intoxicated or Sedated No (0 pts) Impaired Gait No (0 pts) Mobility Assist Device Used No (0 pt) Altered Elimination No (0 pt) Score/Fall Risk Level 0 - 2 = Low Risk Oriented to surroundings, Maintained a safe environment, Educated pt \T\ family on fall prevention, incl call for assistance when getting out of bed. Abuse screen: Denies threats or abuse. Nutritional screening: No deficits noted. Tuberculosis screening: No symptoms or risk factors identified. Assessment: 04:58 Reassessment: Patient and/or family updated on plan of care and expected duration. Pain vc1 level reassessed. Patient is alert, oriented x 3, equal unlabored respirations, skin warm/dry/pink. Patient denies pain at this time. Patient states feeling better. Patient states symptoms have improved. Vital Signs: 03:27 BP 163 / 78; Pulse 82; Resp 18; Temp 97.9; Pulse Ox 95% on R/A; Weight 101.15 kg (M); kl Height 5 ft. 11 in. ; Pain 10/10; 05:00 BP 147 / 88; Pulse 69; Pulse Ox 94% ; vc1 03:27 Body Mass Index 31.10 (101.15 kg, 180.34 cm) kl 03:27 Pain Scale: Adult ED Course: 03:12 Patient arrived in ED. ja2 03:21 Sis Horne, RN is Primary Nurse. kd3 03:29 Triage completed. kl 03:29 Eric Farrell MD is Attending Physician. sp4 03:30 Arm band placed on right wrist. vc1 04:00 Harrison cath inserted, using sterile technique, 16 Fr., by ED staff, balloon inflated, to vc1 gravity drainage, clamped. urine specimen collected. other leg bag applied. 04:00 Patient has correct armband on for positive identification. Placed in gown. Bed in low vc1 position. 04:06 Urinalysis w/ reflexes Sent. vc1 05:27 Jabier Taveras MD is Referral Physician. sp4 05:39 No provider procedures requiring assistance completed. Patient did not have IV access vc1 during this emergency room visit. Administered Medications: No medications were administered Medication: 04:00 VIS not applicable for this client. vc1 Outcome: 05:28 Discharge ordered by . sp4 05:39 Discharged to home ambulatory, with significant other. vc1 05:39 Condition: good 05:39 Discharge instructions given to patient, Instructed on discharge instructions, follow up and referral plans. Demonstrated understanding of instructions, follow-up care. 05:45 Patient left the ED. vc1 Signatures: Merle Ta RN RN Antoinette Burnett Kyli, RN RN kd3 Rita Hills RN RN vc1 Eric Farrell MD MD sp4
[2023-02-27 05:50] VITALS: TEMP 97.9
[2023-02-27 05:51] VITALS: BP 147/88; O2SAT 94
== END 2023-02-27 05:45 | disposition home or self-care (01) ==
LOC: ER 03:08
DX: R33.9 Retention of urine, unspecified (principal); N40.0 Benign prostatic hyperplasia without lower urinary tract symptoms; Z88.5 Allergy status to narcotic agent
CPT/HCPCS: 81003

== ENCOUNTER 2024-10-05 00:10 | Emergency (ER) | payer OTHER ==
--- OUTSIDE RECORDS SUMMARY | 2024-10-05 00:14 | XMS REPORT | Clinical Summary ---
Author Name Unknown Organization [facility] Address [address] [place] [address] Care Team Providers Care Sheep Rancher Name Role Phone Jono Daniel MD Unavailable [phone] Estrella Tee MD Unavailable Yomaira Pizarro MD Primary Care Provider [phone] Allergies Active Allergy Reactions Criticality Noted Date Comments Atorvastatin Other (See Comments) 09/27/2018 Muscle aches Codeine Other (See Comments) ,Nausea Only,GI Intolerance 10/18/2014 Rosuvastatin Other (See Comments) 09/27/2018 Muscle aches Medications * This document contains information received from the source organization and may not represent a complete record from that organization. apixaban (ELIQUIS) 2.5 mg tablet 9 Active aspirin 81 mg EC tablet 5 Active metoprolol guerrero-hydrochloro thiaz 50-12.5 mg Tb24 6 Active furosemide (LASIX) 40 mg tablet 9 Active esomeprazole (NexIUM) 40 MG capsule 4 Active levothyroxine (SYNTHROID) 25 mcg tablet 8 Active tamsulosin (FLOMAX) 0.4 mg 24 hr capsule 8 Active amLODIPine (NORVASC) 5 mg tablet 5 mg. Active nitroglycerin (NITROSTAT) 0.4 mg SL tablet 0.4 mg. 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 22 g 1 Active Social History Tobacco Use Types Packs/Day Years Used Date Smoking Tobacco: Never Smokeless Tobacco: Never Sex and Gender Information Value Date Recorded Sex Assigned at Not on file Legal Sex Male 3:51 PM [employer] Gender Identity Not on file Sexual Orientation Not on file Obstetrics History Plan of Treatment Health Maintenance Due Date Last Done Comments Pneumococcal Vaccine: 65+ Years (1 of 1 - PCV) 003 COVID-19 Vaccine (2023-25 season) 2024 Influenza Vaccine (#1) 2024 Insurance MEDICARE ADVANTAGE MEDICARE ADVANTAGE ([address] [address] [employer] MEDICARE ADVANTAGE Care Teams Sheep Rancher Relationship Specialty Start Date End Date Jono Daniel MD PCP - External Primary Care Provider Internal Medicine 11/26/18 Estrella Tee MD [email or web address] PCP - External Referring Dermatology 11/26/18 Yomaira Pizarro MD [email or web address] PCP - General Dermatology 11/28/18
[2024-10-05] MEDS ORDERED: HYDROCODONE/APAP 5/325 MG TAB ONE (01:00)
--- NOTE | 2024-10-05 01:12 | EDPHYS ---
Physician Documentation [facility] Name: Sin Aguilera Jr Age: 84 yrs Sex: Male : 1940 Arrival Date: 10/05/2024 Time: 00:10 Bed 13 Private MD: ED Physician Kendall Castro HPI: 10/05 00:52 This 84 yrs old Male presents to ER via Ambulatory with complaints of Problem With ec2 Urinary Catheter. 00:52 Patient arrives today for the feeling of having to urinate. Has indwelling Harrison ec2 catheter. Has recent urologic procedures. States that it has been draining somewhat however he still feels full. Reports some increased pain.. Historical: - Allergies: 00:39 Codeine; vc1 00:39 STATINS HMG COA REDUCTASE INHIBITORS; vc1 - PMHx: 00:39 Atrial Fib; CHF; Hyperlipidemia; Hypertension; Hypothyroidism; prostate enlarge; Only vc1 born with Left Kidney; Left kidney Tumor; - PSHx: 00:39 heart stent; L knee replacement; pacemaker; vc1 - Immunization history:: Client reports having NOT received the Covid vaccine. - Infectious Disease History:: Denies. - Social history:: Smoking status: Patient denies any tobacco usage or history of. ROS: 00:52 Constitutional: as per hpi ec2 Exam: 00:52 Constitutional: GEN: NAD Head: atraumatic Eyes: EOMI Ears: External ears are ec2 normal. CV: regular rate LUNGS: no respiratory distress ABD: non-distended, soft, no guarding, not rigid. : Harrison catheter in place with 250 cc in the bag SKIN: no evidence of rashes MSK: no evidence of trauma Vital Signs: 00:37 BP 117 / 82; Pulse 83; Resp 17; Temp 98.3; Pulse Ox 95% ; Weight 101.15 kg; Height 6 vc1 ft. 0 in. ; Pain 9/10; 01:00 BP 117 / 82; Pulse 83; Resp 17; Pulse Ox 96% on R/A; Pain 9/10; rg5 00:37 Body Mass Index 30.24 (101.15 kg, 182.88 cm) vc1 00:37 Pain Scale: Adult vc1 01:00 Pain Scale: Adult rg5 MDM: 00:15 Medical Screening Exam initiated ec2 00:52 Data reviewed: vital signs, nurses notes. ED course: Patient arrives today for urinary ec2 complaints. Examination is unrevealing. Nursing able to irrigate Harrison without issue and able to have urine output.. 00:58 ED course: Bladder scan shows approximately 100 cc of urine in the bladder. Patient can ec2 be discharged home and follow-up with his urologist. Return precautions given.. 01:12 ED course: . ec2 Administered Medications: 01:06 Drug: HYDROcodone-acetaminophen PO 5 mg-325 mg 1 tabs PO once Route: PO; rg5 01:16 Follow up: Response: No adverse reaction; Pain is decreased rg5 Disposition Summary: 10/05/24 01:12 Discharge Ordered Notes: Location: Home ec2 Condition: Stable ec2 Diagnosis - Other mechanical complication of urinary (indwelling) catheter ec2 Followup: ec2 - With: Private Physician - When: - Reason: Recheck today's complaints Discharge Instructions: - Discharge Summary Sheet ec2 - Indwelling Urinary Catheter Care, Adult, [id number] ec2 Forms: - Medication Reconciliation Form ec2 - Antibiotic Education ec2 - Prescription Opioid Use ec2 - Patient Portal Instructions ec2 - Leadership Thank You Letter ec2 Prescriptions: - Valium 5 mg Oral Tablet - take 1 tablet ORAL route every 8 hours As needed; 20 tablet; Refills: 0, ec2 Product Selection Permitted Signatures: Rita Hills, RN RN vc1 Kendall Castro MD MD ec2 Ramiro Colvin RN RN rg5
--- NOTE | 2024-10-05 01:12 | ER ---
Nurse's Notes [facility] Name: Sin Aguilera Jr Age: 84 yrs Sex: Male : 1940 Arrival Date: 10/05/2024 Time: 00:10 Bed 13 Private MD: Diagnosis: Other mechanical complication of urinary (indwelling) catheter Presentation: 10/05 00:37 Chief complaint: Patient states: penile pain and spasms since night after vc1 having Harrison placed following PAE (prostate procedure). Coronavirus screen: Client denies travel out of the [place] in the last 14 days. At this time, the client does not indicate any symptoms associated with coronavirus-19. Ebola Screen: Patient negative for fever greater than or equal to 101.5 degrees Fahrenheit, and additional compatible Ebola Virus Disease symptoms Patient denies exposure to infectious person. Patient denies travel to an Ebola-affected area in the 21 days before illness onset. No symptoms or risks identified at this time. Initial Sepsis Screen: Does the patient meet any 2 criteria? Yes Does the patient have a suspected source of infection? No. Patient's initial sepsis screen is negative. Risk Assessment: Do you want to hurt yourself or someone else? Patient reports no desire to harm self or others. Onset of symptoms was October 02, 2024. 00:37 Method Of Arrival: Ambulatory vc1 00:37 Acuity: ANGIE 4 vc1 Triage Assessment: 00:45 General: Appears in no apparent distress. uncomfortable, Behavior is calm, cooperative, vc1 appropriate for age. Pain: Complains of pain in shaft of penis and meatus Pain does not radiate. Pain currently is 9 out of 10 on a pain scale. Quality of pain is described as spasms. EENT: No deficits noted. No signs and/or symptoms were reported regarding the EENT system. Neuro: Level of Consciousness is awake, alert, obeys commands, Oriented to person, place, time, situation, Appropriate for age. Cardiovascular: Capillary refill < 3 seconds Patient's skin is warm and dry. Respiratory: Airway is patent Respiratory effort is even, unlabored, Respiratory pattern is regular, symmetrical. GI: No deficits noted. No signs and/or symptoms were reported involving the gastrointestinal system. : Harrison in place to gravity drainage Urine is orange, taking pyridium Reports pain in penis. Historical: - Allergies: 00:39 Codeine; vc1 00:39 STATINS HMG COA REDUCTASE INHIBITORS; vc1 - PMHx: 00:39 Atrial Fib; CHF; Hyperlipidemia; Hypertension; Hypothyroidism; prostate enlarge; Only vc1 born with Left Kidney; Left kidney Tumor; - PSHx: 00:39 heart stent; L knee replacement; pacemaker; vc1 - Immunization history:: Client reports having NOT received the Covid vaccine. - Infectious Disease History:: Denies. - Social history:: Smoking status: Patient denies any tobacco usage or history of. Screenin:43 [facility] ED Fall Risk Assessment (Adult) History of falling in the last 3 months, vc1 including since admission No falls in past 3 months (0 pts) Confusion or Disorientation No (0 pts) Intoxicated or Sedated No (0 pts) Impaired Gait No (0 pts) Mobility Assist Device Used No (0 pt) Altered Elimination No (0 pt) Score/Fall Risk Level 0 - 2 = Low Risk Oriented to surroundings, Maintained a safe environment, Educated pt \T\ family on fall prevention, incl call for assistance when getting out of bed. Abuse screen: Denies threats or abuse. Nutritional screening: No deficits noted. Tuberculosis screening: No symptoms or risk factors identified. Assessment: 01:12 General: Appears in no apparent distress. Behavior is calm, cooperative, appropriate rg5 for age. Pain: Complains of pain in suprapubic area Pain currently is 9 out of 10 on a pain scale. Quality of pain is described as aching. Neuro: Level of Consciousness is awake, alert, obeys commands, Oriented to person, place, time. Cardiovascular: Denies chest pain, Patient's skin is warm and dry. Respiratory: Airway is patent Trachea midline Respiratory effort is even, unlabored, Respiratory pattern is regular, symmetrical. GI: Abdomen is round non-distended. : Harrison in place to gravity drainage. EENT: No signs and/or symptoms were reported regarding the EENT system. Derm: Skin is intact, Skin is dry, Skin is normal, Skin temperature is warm. Musculoskeletal: Circulation, motion, and sensation intact. Range of motion: intact in all extremities. Vital Signs: 00:37 BP 117 / 82; Pulse 83; Resp 17; Temp 98.3; Pulse Ox 95% ; Weight 101.15 kg; Height 6 vc1 ft. 0 in. ; Pain 9/10; 01:00 BP 117 / 82; Pulse 83; Resp 17; Pulse Ox 96% on R/A; Pain 9/10; rg5 00:37 Body Mass Index 30.24 (101.15 kg, 182.88 cm) vc1 00:37 Pain Scale: Adult vc1 01:00 Pain Scale: Adult rg5 ED Course: 00:14 Patient arrived in ED. im 00:15 Kendall Castro MD is Attending Physician. ec2 00:33 Ramiro Colvin, MILLIE is Primary Nurse. rg5 00:39 Triage completed. vc1 00:43 Arm band placed on right wrist. vc1 00:43 Patient has correct armband on for positive identification. Bed in low position. Call vc1 light in reach. Pulse ox on. NIBP on. 01:12 No provider procedures requiring assistance completed. rg5 01:16 Patient did not have IV access during this emergency room visit. rg5 01:30 Provided Education on: post er care. rg5 Administered Medications: 01:06 Drug: HYDROcodone-acetaminophen PO 5 mg-325 mg 1 tabs PO once Route: PO; rg5 01:16 Follow up: Response: No adverse reaction; Pain is decreased rg5 Medication: 00:45 VIS not applicable for this client. vc1 Outcome: 01:12 Discharge ordered by . ec2 01:30 Discharged to home ambulatory, rg5 01:30 Condition: stable rg5 01:30 Discharge instructions given to patient, family, Instructed on discharge instructions, follow up and referral plans. Demonstrated understanding of instructions, follow-up care, medications, Prescriptions given X 1, 01:30 Patient left the ED. rg5 Signatures: Rita Hills RN RN vc1 Hali Teresa Kendall Castro MD MD 2 Ramiro Colvin, MILLIE RN rg5 Corrections: (The following items were deleted from the chart) 01:46 01:44 Patient left the ED. rg5 rg5
[2024-10-05 01:48] VITALS: BP 117/82; TEMP 98.3
[2024-10-05 01:50] VITALS: O2SAT 96
== END 2024-10-05 01:44 | disposition home or self-care (01) ==
LOC: ER 00:10
DX: T83.098A Other mechanical complication of other urinary catheter, initial encounter (principal)
CPT/HCPCS: 99283